=== PATIENT | male | born 1935 | race Caucasian/White ===

== ENCOUNTER 2021-08-15 08:20 | Day surgery (SDC) | payer OTHER ==
[2021-08-09 17:00] LABS: Potassium 3.9 mmol/L (3.5-5.1)
[2021-08-15] MEDS ORDERED: Ringers Lactate 1,000 ML IV ONE ×2 (08:40→13:11)
[2021-08-15] MEDS ORDERED: BUPIVACAINE 0.25% PF 30 ML VIAL ONE (09:33)
[2021-08-15] MEDS ORDERED: BUPIVACA 0.5%/EPI 0.0005%/PF 30 ML VIAL ONE (09:59)
[2021-08-15] MEDS ORDERED: LIDOCAINE 1% MPF 2 ML AMPULE ONE (10:10)
[2021-08-15] MEDS ORDERED: propofoL 200 MG/20 ML VIAL IV ONE (10:10)
[2021-08-15] MEDS ORDERED: FENTANYL CITR 100 MCG/2 ML ONE (10:10)
[2021-08-15] MEDS ORDERED: ROCURONIUM 50 MG/5 ML VIAL IV ONE (10:12)
[2021-08-15] MEDS: CEFAZOLIN/SWI 2gm 2 GM/20 ML SYR ONE ×2 (10:18→10:30)
[2021-08-15] MEDS ORDERED: dexAMETHasone 10 MG/ML VIAL ONE (10:35)
[2021-08-15] MEDS ORDERED: ONDANSETRON 4 MG/2 ML VIAL ONE (10:35)
[2021-08-15] MEDS ORDERED: NEOSTIGMINE 1 MG/ML -5 ML ONE (11:32)
[2021-08-15] MEDS ORDERED: GLYCOPYRROLATE 0.2 MG/ML SYR ONE (11:32)
--- NOTE | 2021-08-15 11:47 | P.OP ---
Preoperative diagnosis: RIGHT Inguinal Hernia - reducible Postoperative diagnosis: RIGHT Inguinal Hernia - reducible Primary procedure: Open RIGHT inguinal hernia repair with mesh Anesthesia: GETA + Local Estimated blood loss: <5cc Specimen: hernia contents Findings: large pantaloon indirect / direct inguinal hernia Complications: None Implants: Large Bard Perfix Plug and Patch Transferred to: Recovery Room Condition: Good
[2021-08-15] MEDS: FENTANYL CITR 100 MCG/2 ML ONE ×2 (12:06→12:20)
--- NOTE | 2021-08-15 12:11 | OP ---
Date of Procedure: 08/15/2021 Surgeon: Ben Og MD, Preoperative Diagnosis: Right inguinal hernia, reducible. Postoperative Diagnosis: Right inguinal hernia, reducible. Procedure Performed: Open right inguinal hernia repair with mesh. Anesthesia: General endotracheal plus local with 0.25% Marcaine. Estimated Blood Loss: Less than 5 cc. Specimens: Hernia contents. Findings: 1.Large pantaloon direct/indirect inguinal hernia on the right. 2.External oblique aponeurosis was quite thin and friable. Complications: None. Implants: A large Bard PerFix plug and patch hernia repair system. Disposition: The patient was transferred to the recovery room in good condition. Procedure In Detail: After informed consent was obtained, the patient was brought to the operating r oom, prepped and draped in the usual sterile fashion. After adequate anesthesia achieved, I made a l inear incision overlying the right inguinal region down to subcutaneous tissues. Electrocautery was used to dissect down through Camper fat and Elver fascia to expose the external oblique aponeurosis. This was opened sharply with a 15-blade. At this point, I then opened the external oblique aponeur osis, which was found to be quite thin and friable in its entirety protecting the ilioinguinal nerve. There were significant inflammatory changes down this area with significant compression from the in traabdominal contents coming through the hernia defect. At this point, after the external oblique ap oneurosis was opened in its entirety, I circumferentially dissected the spermatic cord structures hari y from the cord lipoma which was removed and sent off for pathologic examination. I then noted that the patient had a pantaloon type hernia. As such, I dissected circumferentially around to clear it f rom the spermatic cord structures protecting throughout the procedure. I then ligated some of the an terior hernia sac contents and imbricated the hernia sac internally through the deep ring. At this p oint, I sized a large Bard PerFix plug placed in the preperitoneal space circumferentially, flattened it out, and secured it circumferentially using the inner leaflets using a 2-0 PDS suture with good a pproximation of the tissues. I then brought the patch, sized appropriately, trimmed it, and secured to the pubic tubercle on medial aspect and then the internal oblique aponeurosis medially and lateral ly on the underside of the inguinal ligament down at this point deep tissues. I then reconstituted t he deep ring circumferentially around. The floors were found to be quite weak throughout the procedu re until the mesh was placed. At this point, good tension free repair was performed. At this point, I irrigated the area copiously, dried it and then closed the external oblique aponeurosis using a ru nning 3-0 Vicryl suture and deep dermal plane was closed using additional interrupted 3-0 Vicryl sutu res and skin was closed with 4-0 Monocryl in a running fashion. Dermabond placed over top. The garland ent tolerated the procedure well without evidence of complication and transferred to PACU in good con dition. All counts were correct at the end of the case. HERNAN/CARRIE Voice ID: [id number] Report ID: [id number]
[2021-08-15 12:43] VITALS: O2SAT 97
[2021-08-15 13:23] VITALS: BP 150/46; TEMP 97.9
[2021-08-15] MEDS ORDERED: HYDROCODONE/APAP 10/325 TAB ONE (13:41)
== END 2021-08-15 14:35 | disposition home or self-care (01) ==
LOC: OR 08:20
PROVIDERS: ATTEND Surgery
PROC: 0YU50JZ Supplement Right Inguinal Region with Synthetic Substitute, Open Approach (ICD-10-PCS; principal; 2021-08-15 10:15)
DX: K40.90 Unilateral inguinal hernia, without obstruction or gangrene, not specified as recurrent (principal); Z20.822 Contact with and (suspected) exposure to COVID-19
CPT/HCPCS: 80048; 36415; 88302; 49505; U0002; J2704; J3010 ×2; J1100; J2710; J0690; J7120 ×2; J2405

== ENCOUNTER 2022-06-16 09:46 | Inpatient (IN) | payer OTHER ==
--- OUTSIDE RECORDS SUMMARY | 2022-06-16 09:56 | XMS REPORT | Continuity of Care Document ---
:1935 Author Organization [facility] t Address [address] [place] [address] Dr. Patricia [address] [place] [address] Care Team Providers Name Role Phone TED AMIN Primary Care Physician Unavailable ERICKSON_R Attending Clinician Unavailable Ted Amin Attending Clinician [phone] RIVERA BUCKNER Attending Clinician Unavailable Nurse, [facility] Pob Immunization Attending Clinician Unavailable Rivera Buckner DO Attending Clinician Ben Og Attending Clinician [phone] Doctor Unassigned, [place] Attending Clinician Unavailable Merna Watkins RN Attending Clinician Mike Kruger S Attending Clinician Jesus Alberto Silverman MD Attending Clinician Devyn Chen CRNA Attending Clinician , [facility] Lab Attending Clinician Unavailable [facility], [facility] Heart Attending Clinician Unavailable Cheryl Dsouza RN Attending Clinician Unavailable Payton LOYD, Daniel Scruggs Attending Clinician Quinn Duggan MD Attending Clinician ERICKSON_R Admitting Clinician Unavailable Jesus Alberto Silverman MD Admitting Clinician Quinn Duggan MD Admitting Clinician Payers Payer Name Policy Type Policy Number Effective Date Expiration Date Amirah MADRIGAL (MEDICARE [id number] 2021 REPLACEMENT PPO) 00:00:00 [facility] [id number] Problems Condition Condition Condition Status Onset Resolution Last Treating Co mments Source Name Details Category Date Date Treatment Clinician Date Primary Primary Disease Active Overview: Univ ers osteoarthr osteoarthr 05-28 Formattin ity of itis of itis of 00:00: g of this [place] right knee right knee 00 note Me dical might be Branch different from the original. Added automatic ally from request for surgery [id number] Chest pain Chest pain Disease Active U nivers 8- ity of 00:00: [place] 00 Medical Branch Total knee Total knee Disease Active U nivers replacemen replacemen 10-23 it y of t status t status 00:00: [place] [facility] Left knee Left knee Disease Active 2015-09 Uni vers pain pain 10-19 ity of 00:00: [address] Allergies, Adverse Reactions, Alerts Allergy Allergy Status Severity Reaction(s) Onset Inactive Treating Comm ents Source Name Type Date Date Clinician NO KNOWN Drug Active Univers ALLERGIE Class ity of S [facility] Social History Social Habit Start Date Stop Date Quantity Comments Source Tobacco Comment Quit in 1984 [facility] Alcohol Comment Occasional Drinker U [facility] Alcohol intake 2019-06-17 2019-06-17 0 /d [facility] 00:00:00 00:00:[address] [facility] Sex Assigned At [birth year] Universit y of 00:00:00 00:00:[address] [facility] Smoking Status Start Date Stop Date Source Former smoker 2019-06-17 00:00:00 2019-06-17 00:00:00 [facility] Medications Ordered Filled Start Stop Current Ordering Indication Dosage Frequency Signature Comments Components Source Medication Medication Date Date Medication? Clinician (SIG) Name Name rOPINIRole Yes 1mg Take 1 mg Un guillermina (REQUIP) 1 9-18 by mouth ity o f mg tablet 16:52: at [place] 24 bedtime. Medical Branch sildenafil Yes 100mg Take 100 Un guillermina (VIAGRA) 9-18 mg by ity of 100 mg 16:52: mouth as [place] tablet 24 needed. Medical Branch atorvastati Yes 40mg Take 40 mg Univers n (LIPITOR) 9-18 by mouth ity of 80 mg 16:52: at [place] tablet 24 bedtime. Medical Branch CYCLOBENZAP 2019 Yes 10mg Take 10 mg Univers RINE HCL 9-18 by mouth ity of (CYCLOBENZA 16:52: at [place] ALFRED ORAL) 24 bedtime. [facility] Branch terazosin Yes 10mg Take 10 mg Un guillermina 10 mg 9-18 by mouth ity of capsule 16:52: at [place] 24 bedtime. Medical Branch methocarbam Yes 500mg Take 500 U nivers ol 500 mg 9-18 mg by ity of tablet 16:52: mouth as [place] 24 needed Medical (muscle Branch cramps). galantamine Yes 8mg Take 8 mg U nivers 8 mg tablet 9-18 by mouth ity of 16:52: daily. [place] [address] Medical Branch aspirin 325 Yes 325mg Take 325 U nivers mg tablet 9-18 mg by ity of 16:52: mouth [place] 24 daily. Medical Branch FINASTERIDE Yes 5mg Take 5 mg U nivers ORAL 9-18 by mouth ity of 16:52: daily. [place] [address] Medical Branch gabapentin Yes 200mg Take 200 Un guillermina 100 mg 9-18 mg by ity of capsule 16:52: mouth [place] 24 every Medical evening. Branch Indication s: Takes at 8:00pm CYANOCOBALA Yes 100ug Take 100 U nivers MIN, 9-18 mcg by ity of VITAMIN 16:52: mouth [place] B-12, ORAL 24 daily. Medical Branch biotin Yes 1{tbl} Take 1 Univers 5,000 mcg 9-18 tablet by ity o f TbDL 16:52: mouth [place] 24 daily. Medical Branch rOPINIRole Yes 1mg Take 1 mg Un guillermina (REQUIP) 1 9-18 by mouth ity o f mg tablet 16:52: at [place] 24 bedtime. Medical Branch sildenafil Yes 100mg Take 100 Un guillermina (VIAGRA) 9-18 mg by ity of 100 mg 16:52: mouth as [place] tablet 24 needed. Medical Branch atorvastati Yes 40mg Take 40 mg Univers n (LIPITOR) 9-18 by mouth ity of 80 mg 16:52: at [place] tablet 24 bedtime. Medical Branch CYCLOBENZAP Yes 10mg Take 10 mg Univers RINE HCL 9-18 by mouth ity of (CYCLOBENZA 16:52: at [place] ALFRED ORAL) 24 bedtime. [facility] Branch terazosin Yes 10mg Take 10 mg Un guillermina 10 mg 9-18 by mouth ity of capsule 16:52: at [place] 24 bedtime. Medical Branch methocarbam Yes 500mg Take 500 U nivers ol 500 mg 9-18 mg by ity of tablet 16:52: mouth as [place] 24 needed Medical (muscle Branch cramps). galantamine Yes 8mg Take 8 mg U nivers 8 mg tablet 9-18 by mouth ity of 16:52: daily. [place] [address] Medical Branch aspirin 325 Yes 325mg Take 325 U nivers mg tablet 9-18 mg by ity of 16:52: mouth [place] 24 daily. Medical Branch FINASTERIDE Yes 5mg Take 5 mg U nivers ORAL 9-18 by mouth ity of 16:52: daily. [place] [address] Medical Branch gabapentin Yes 200mg Take 200 Un guillermina 100 mg 9-18 mg by ity of capsule 16:52: mouth [place] 24 every Medical evening. Branch Indication s: Takes at 8:00pm CYANOCOBALA Yes 100ug Take 100 U nivers MIN, 9-18 mcg by ity of VITAMIN 16:52: mouth [place] B-12, ORAL 24 daily. Medical Branch biotin Yes 1{tbl} Take 1 Univers 5,000 mcg 9-18 tablet by ity o f TbDL 16:52: mouth [place] 24 daily. Medical Branch rOPINIRole Yes 1mg Take 1 mg Un guillermina (REQUIP) 1 9-18 by mouth ity o f mg tablet 16:52: at [place] 24 bedtime. Medical Branch sildenafil 2019 Yes 100mg Take 100 Un guillermina (VIAGRA) 9-18 mg by ity of 100 mg 16:52: mouth as [place] tablet 24 needed. Medical Branch atorvastati Yes 40mg Take 40 mg Univers n (LIPITOR) 9-18 by mouth ity of 80 mg 16:52: at [place] tablet 24 bedtime. Medical Branch CYCLOBENZAP Yes 10mg Take 10 mg Univers RINE HCL 9-18 by mouth ity of (CYCLOBENZA 16:52: at [place] ALFRED ORAL) 24 bedtime. [facility] Branch terazosin Yes 10mg Take 10 mg Un guillermina 10 mg 9-18 by mouth ity of capsule 16:52: at [place] 24 bedtime. Medical Branch methocarbam Yes 500mg Take 500 U nivers ol 500 mg 9-18 mg by ity of tablet 16:52: mouth as [place] 24 needed Medical (muscle Branch cramps). galantamine 2019 Yes 8mg Take 8 mg U nivers 8 mg tablet 9-18 by mouth ity of 16:52: daily. [place] [address] Medical Branch aspirin 325 20190 Yes 325mg Take 325 U nivers mg tablet 9-18 mg by ity of 16:52: mouth [place] 24 daily. Medical Branch FINASTERIDE Yes 5mg Take 5 mg U nivers ORAL 9-18 by mouth ity of 16:52: daily. [place] [address] Medical Branch gabapentin Yes 200mg Take 200 Un guillermina 100 mg 9-18 mg by ity of capsule 16:52: mouth [place] 24 every Medical evening. Branch Indication s: Takes at 8:00pm CYANOCOBALA Yes 100ug Take 100 U nivers MIN, 9-18 mcg by ity of VITAMIN 16:52: mouth [place] B-12, ORAL 24 daily. Medical Branch biotin 0 Yes 1{tbl} Take 1 Univers 5,000 mcg 9-18 tablet by ity o f TbDL 16:52: mouth [place] 24 daily. Medical Branch rOPINIRole Yes 1mg Take 1 mg Un guillermina (REQUIP) 1 9-18 by mouth ity o f mg tablet 16:52: at [place] 24 bedtime. Medical Branch sildenafil 2019 Yes 100mg Take 100 Un guillermina (VIAGRA) 9-18 mg by ity of 100 mg 16:52: mouth as [place] tablet 24 needed. Medical Branch atorvastati 0 Yes 40mg Take 40 mg Univers n (LIPITOR) 9-18 by mouth ity of 80 mg 16:52: at [place] tablet 24 bedtime. Medical Branch CYCLOBENZAP 2019 Yes 10mg Take 10 mg Univers RINE HCL 9-18 by mouth ity of (CYCLOBENZA 16:52: at [place] ALFRED ORAL) 24 bedtime. [facility] Branch terazosin Yes 10mg Take 10 mg Un guillermina 10 mg 9-18 by mouth ity of capsule 16:52: at [place] 24 bedtime. Medical Branch methocarbam Yes 500mg Take 500 U nivers ol 500 mg 9-18 mg by ity of tablet 16:52: mouth as [place] 24 needed Medical (muscle Branch cramps). galantamine 2019 Yes 8mg Take 8 mg U nivers 8 mg tablet 9-18 by mouth ity of 16:52: daily. [place] [address] Medical Branch aspirin 325 2019-0 Yes 325mg Take 325 U nivers mg tablet 9-18 mg by ity of 16:52: mouth [place] 24 daily. Medical Branch FINASTERIDE Yes 5mg Take 5 mg U nivers ORAL 9-18 by mouth ity of 16:52: daily. [place] [address] Medical Branch gabapentin Yes 200mg Take 200 Un guillermina 100 mg 9-18 mg by ity of capsule 16:52: mouth [place] 24 every Medical evening. Branch Indication s: Takes at 8:00pm CYANOCOBALA Yes 100ug Take 100 U nivers MIN, 9-18 mcg by ity of VITAMIN 16:52: mouth [place] B-12, ORAL 24 daily. Medical Branch biotin 0 Yes 1{tbl} Take 1 Univers 5,000 mcg 9-18 tablet by ity o f TbDL 16:52: mouth [place] 24 daily. Medical Branch rOPINIRole Yes 1mg Take 1 mg Un guillermina (REQUIP) 1 9-18 by mouth ity o f mg tablet 16:52: at [place] 24 bedtime. Medical Branch sildenafil 2019 Yes 100mg Take 100 Un guillermina (VIAGRA) 9-18 mg by ity of 100 mg 16:52: mouth as [place] tablet 24 needed. Medical Branch atorvastati Yes 40mg Take 40 mg Univers n (LIPITOR) 9-18 by mouth ity of 80 mg 16:52: at [place] tablet 24 bedtime. Medical Branch CYCLOBENZAP Yes 10mg Take 10 mg Univers RINE HCL 9-18 by mouth ity of (CYCLOBENZA 16:52: at [place] ALFRED ORAL) 24 bedtime. [facility] Branch terazosin Yes 10mg Take 10 mg Un guillermina 10 mg 9-18 by mouth ity of capsule 16:52: at [place] 24 bedtime. Medical Branch methocarbam Yes 500mg Take 500 U nivers ol 500 mg 9-18 mg by ity of tablet 16:52: mouth as [place] 24 needed Medical (muscle Branch cramps). galantamine 2019 Yes 8mg Take 8 mg U nivers 8 mg tablet 9-18 by mouth ity of 16:52: daily. [place] [address] Medical Branch aspirin 325 2019-0 Yes 325mg Take 325 U nivers mg tablet 9-18 mg by ity of 16:52: mouth [place] 24 daily. Medical Branch FINASTERIDE Yes 5mg Take 5 mg U nivers ORAL 9-18 by mouth ity of 16:52: daily. [place] [address] Medical Branch gabapentin Yes 200mg Take 200 Un guillermina 100 mg 9-18 mg by ity of capsule 16:52: mouth [place] 24 every Medical evening. Branch Indication s: Takes at 8:00pm CYANOCOBALA Yes 100ug Take 100 U nivers MIN, 9-18 mcg by ity of VITAMIN 16:52: mouth [place] B-12, ORAL 24 daily. Medical Branch biotin Yes 1{tbl} Take 1 Univers 5,000 mcg 9-18 tablet by ity o f TbDL 16:52: mouth [place] 24 daily. Medical Branch rOPINIRole Yes 1mg Take 1 mg Un guillermina (REQUIP) 1 9-18 by mouth ity o f mg tablet 16:52: at [place] 24 bedtime. Medical Branch sildenafil Yes 100mg Take 100 Un guillermina (VIAGRA) 9-18 mg by ity of 100 mg 16:52: mouth as [place] tablet 24 needed. Medical Branch atorvastati Yes 40mg Take 40 mg Univers n (LIPITOR) 9-18 by mouth ity of 80 mg 16:52: at [place] tablet 24 bedtime. Medical Branch CYCLOBENZAP 2019 Yes 10mg Take 10 mg Univers RINE HCL 9-18 by mouth ity of (CYCLOBENZA 16:52: at [place] ALFRED ORAL) 24 bedtime. [facility] Branch terazosin Yes 10mg Take 10 mg Un guillermina 10 mg 9-18 by mouth ity of capsule 16:52: at [place] 24 bedtime. Medical Branch methocarbam 2019 Yes 500mg Take 500 U nivers ol 500 mg 9-18 mg by ity of tablet 16:52: mouth as [place] 24 needed Medical (muscle Branch cramps). galantamine 2019 Yes 8mg Take 8 mg U nivers 8 mg tablet 9-18 by mouth ity of 16:52: daily. [place] [address] Medical Branch aspirin 325 2019 Yes 325mg Take 325 U nivers mg tablet 9-18 mg by ity of 16:52: mouth [place] 24 daily. Medical Branch FINASTERIDE 2019 Yes 5mg Take 5 mg U nivers ORAL 9-18 by mouth ity of 16:52: daily. [place] [address] Medical Branch gabapentin Yes 200mg Take 200 Un guillermina 100 mg 9-18 mg by ity of capsule 16:52: mouth [place] 24 every Medical evening. Branch Indication s: Takes at 8:00pm CYANOCOBALA Yes 100ug Take 100 U nivers MIN, 9-18 mcg by ity of VITAMIN 16:52: mouth [place] B-12, ORAL 24 daily. Medical Branch biotin Yes 1{tbl} Take 1 Univers 5,000 mcg 9-18 tablet by ity o f TbDL 16:52: mouth [place] 24 daily. Medical Branch rOPINIRole Yes 1mg Take 1 mg Un guillermina (REQUIP) 1 9-18 by mouth ity o f mg tablet 11:52: at [place] 24 bedtime. Medical Branch sildenafil Yes 100mg Take 100 Un guillermina (VIAGRA) 9-18 mg by ity of 100 mg 11:52: mouth as [place] tablet 24 needed. Medical Branch atorvastati Yes 40mg Take 40 mg Univers n (LIPITOR) 9-18 by mouth ity of 80 mg 11:52: at [place] tablet 24 bedtime. Medical Branch CYCLOBENZAP 2019 Yes 10mg Take 10 mg Univers RINE HCL 9-18 by mouth ity of (CYCLOBENZA 11:52: at [place] ALFRED ORAL) 24 bedtime. [facility] Branch terazosin Yes 10mg Take 10 mg Un guillermina 10 mg 9-18 by mouth ity of capsule 11:52: at [place] 24 bedtime. Medical Branch methocarbam 2019-0 Yes 500mg Take 500 U nivers ol 500 mg 9-18 mg by ity of tablet 11:52: mouth as [place] 24 needed Medical (muscle Branch cramps). galantamine 2019-0 Yes 8mg Take 8 mg U nivers 8 mg tablet 9-18 by mouth ity of 11:52: daily. [place] [address] Medical Branch aspirin 325 2019-0 Yes 325mg Take 325 U nivers mg tablet 9-18 mg by ity of 11:52: mouth [place] 24 daily. Medical Branch FINASTERIDE 2019-0 Yes 5mg Take 5 mg U nivers ORAL 9-18 by mouth ity of 11:52: daily. [place] [address] Medical Branch gabapentin 2019-0 Yes 200mg Take 200 Un guillermina 100 mg 9-18 mg by ity of capsule 11:52: mouth [place] 24 every Medical evening. Branch Indication s: Takes at 8:00pm CYANOCOBALA 2019-0 Yes 100ug Take 100 U nivers MIN, 9-18 mcg by ity of VITAMIN 11:52: mouth [place] B-12, ORAL 24 daily. Medical Branch biotin 2018-0 Yes 1{tbl} Take 1 Univers 5,000 mcg 9-18 tablet by ity o f TbDL 11:52: mouth [place] 24 daily. Medical Branch enoxaparin 2018-0 Yes 30mg 30 mg, Unive rs (LOVENOX) - Subcutaneo ity of injection 11:00: us, Q12H, [place] as 30 mg 00 First dose Medical on [facility] 06/03/19 at 0600, Until Discontinu ed, Routine terazosin 2018- Yes 10mg 10 mg, Univer s (HYTRIN) -17 Oral, QHS, ity o f capsule 10 02:00: First dose [place] mg 00 on Mon Medical 06/02/19 at Branch 2100, Until Discontinu ed, Routine cyclobenzap 2018-0 Yes 10mg 10 mg, Univ ers rine 9-17 Oral, QHS, ity of (FLEXERIL) 02:00: First dose [place] tablet 10 00 on Mon Medical mg 06/02/19 at Branch 2100, Until Discontinu ed atorvastati 2018-0 Yes 40mg 40 mg, Univ ers n (LIPITOR) 9-17 Oral, QHS, it y of tablet 40 02:00: First dose [place] mg 00 on Mon Medical 06/02/19 at Branch 2100, Until Discontinu ed, Routine acetaminoph Yes [id number] 1{tbl} Take 1 Univers en-codeine 9-17 05 tablet by ity of (TYLENOL-CO 00:00: mouth [place] DEINE #3) 00 every 4 Medical 300-30 mg (four) Branch tablet hours as needed for Pain (scale 4-6) or Pain (scale 7-10). acetaminoph Yes [id number] 1{tbl} Take 1 Univers en-codeine 9-17 05 tablet by ity of (TYLENOL-CO 00:00: mouth [place] DEINE #3) 00 every 4 Medical 300-30 mg (four) Branch tablet hours as needed for Pain (scale 4-6) or Pain (scale 7-10). acetaminoph Yes [id number] 1{tbl} Take 1 Univers en-codeine 9-17 05 tablet by ity of (TYLENOL-CO 00:00: mouth [place] DEINE #3) 00 every 4 Medical 300-30 mg (four) Branch tablet hours as needed for Pain (scale 4-6) or Pain (scale 7-10). acetaminoph Yes [id number] 1{tbl} Take 1 Univers en-codeine 9-17 05 tablet by ity of (TYLENOL-CO 00:00: mouth [place] DEINE #3) 00 every 4 Medical 300-30 mg (four) Branch tablet hours as needed for Pain (scale 4-6) or Pain (scale 7-10). acetaminoph Yes [id number] 1{tbl} Take 1 Univers en-codeine 9-17 05 tablet by ity of (TYLENOL-CO 00:00: mouth [place] DEINE #3) 00 every 4 Medical 300-30 mg (four) Branch tablet hours as needed for Pain (scale 4-6) or Pain (scale 7-10). acetaminoph Yes [id number] 1{tbl} Take 1 Univers en-codeine 9-17 05 tablet by ity of (TYLENOL-CO 00:00: mouth [place] DEINE #3) 00 every 4 Medical 300-30 mg (four) Branch tablet hours as needed for Pain (scale 4-6) or Pain (scale 7-10). rivaroxaban 2019- No [id number] 10mg Take 1 Univers (XARELTO) 06-03 05 tablet by ity of tablet 00:00: 04:59 mouth [place] 00 :00 daily for Medical 10 days. [place] rivaroxaban 2019- No [id number] 10mg Take 1 Univers (XARELTO) 06-03 05 tablet by ity of tablet 00:00: 04:59 mouth [place] 00 :00 daily for Medical 10 days. [place] rivaroxaban 2019- No [id number] 10mg Take 1 Univers (XARELTO) 06-03 05 tablet by ity of tablet 00:00: 04:59 mouth [place] 00 :00 daily for Medical 10 days. [place] rivaroxaban 2019- No [id number] 10mg Take 1 Univers (XARELTO) 06-03 05 tablet by ity of tablet 00:00: 04:59 mouth [place] 00 :00 daily for Medical 10 days. [place] gabapentin Yes 200mg 200 mg, Uni vers (NEURONTIN) 06-02 Oral, QPM, it y of capsule 200 22:00: First dose [place] mg 00 on Mon Medical 06/02/19 at [place] 1700, Until Discontinu ed, Routine tranexamic 2018- No 975mg 975 mg, IV Univers acid 06-02 Piggyback, ity of (CYKLOKAPRO 16:00: 13:09 ONCE, 1 [place] N) 975 mg 00 :00 dose, Mon Medic al in NaCl 06/02/19 at [place] 0.9% (NS) 1100, 250 250 mL mL, DSU piggyback Pre-op ceFAZolin 2019- No 2000mg 2 g (2,000 Univers in dextrose 06-02 mg), IV ity of (iso-os) 16:00: 12:39 [place]gyback, [place] (ANCEF) 2 00 :00 O.R. Medical gram/100 mL HOLDING Branc h Piggyback 2 ONCE, 1 g dose, Starting 06/02/19 at 1100, Until 06/02/19 at 0739, 100 mL, DSU Pre-op
Reason for Anti-Infec tive: Surgical Prophylaxi s
Surgi sydnee Prophylaxi s: Orthopaedi c
Durat ion of therapy: within 24 hours of surgery galantamine Yes 8mg 8 mg, Unive rs (REMINYL) 06-02 Oral, ity of tablet 8 mg 14:00: [place], [place] First [place] Medical on [facility] 06/02/19 at 0900, Until Discontinu ed, Routine finasteride Yes 5mg 5 mg, Unive rs (PROSCAR) 06-02 Oral, ity of tablet 5 mg 14:00: DAILY, [place] First dose Medical on [facility] 06/02/19 at 0900, Until Discontinu ed furosemide 2018- No 40mg 40 mg, Univ ers (LASIX) 06-02 Oral, Q ity of tablet 40 14:00: 23:57 DAY, [place] mg 00 :28 First dose Medical on [facility] 06/02/19 at 0900, Until Discontinu ed, Routine gabapentin 2018- No 300mg 300 mg, Un guillermina (NEURONTIN) 06-02 Oral, ity of capsule 300 14:00: 12:13 ONCE, 1 [place] mg 00 :00 dose, [facility] 06/02/19 at Branch 0900, Routine, DSU Pre-op oxyCODONE-a 2018- No 2{tbl} 2 tablet, [facility] cetaminophe 06-02 Oral, ity of n 14:00: 12:13 ONCE, 1 [place] (PERCOCET) 00 :00 dose, [facility] Medi sydnee 5-325 mg 06/02/19 at Branc h per tablet 0900, 2 tablet Routine, DSU Pre-op celecoxib 2019- No 400mg 400 mg, Uni vers (CELEBREX) 06-02 Oral, ity of capsule 400 14:00: 12:12 ONCE, 1 [place] mg 00 :00 dose, [facility] 06/02/19 at Branch 0900, Routine, DSU Pre-op
mathematics faculty member approving Non-formul aleja medication : JESUS ALBERTO SILVERMAN
Reaso n for Non-Formul aleja Use: SPECIFIC INDICATION FOR NONFORMULA RY PRODUCT morpHINE 30 2019-0 Yes Univer s mg/30 mL 06-02 ity of (fixed 13:50: [place] dose) DIE KEEPER 37 Medical injection [place] docusate 2018-0 Yes 100mg 100 mg, Unive rs (COLACE) 06-02 Oral, ity of capsule 100 13:00: Q12H, [place] mg 00 First dose Medical on [facility] 06/02/19 at 0800, Until Discontinu ed, Routine gabapentin 2018-0 Yes 100mg 100 mg, Uni vers (NEURONTIN) 06-02 Oral, TID, it y of capsule 100 13:00: First dose [place] mg 00 on [facility] Medical 06/02/19 at Branch 0800, Until Discontinu ed, Routine acetaminoph 2018-0 2019- No IV Unive rs en ADULT 06-02 Infusion, ity o f (OFIRMEV) 12:53: 14:39 Administer [place] injection 00 :19 over 15 Medical Minutes, [place] ONCE INTRA PROCEDURE, Starting [facility] 06/02/19 at 0753, Until [facility] 06/02/19 at 0939, Routine, Intra-op naloxone 2018-0 Yes .4mg 0.4 mg, Univer s (NARCAN) 06-02 Slow IV ity of injection 12:50: Push, [place] 0.4 mg 34 SEE-INSTRU Medical CTIONS, [place] Starting [facility] 06/02/19 at 0750, Until Discontinu ed, Routine HYDROcodone 2018-0 Yes 1{tbl} 1 tablet, Univers -acetaminop -16 Oral, ity of hen (NORCO) 12:50: Q4HPRN, [place] 10-325 mg 30 Starting Medica l tablet 1 [facility] tablet 06/02/19 at 0750, Until Discontinu ed, Routine, Pain (scale 7-10) HYDROcodone 2019-0 Yes 1{tbl} 1 tablet, Univers -acetaminop -16 Oral, ity of hen (NORCO 12:50: Q6HPRN, [place] 5) 5-325 mg 25 Starting Medi sydnee tablet 1 [facility] tablet 06/02/19 at 0750, Until Discontinu ed, Routine, Pain (scale 4-6) ondansetron 2019-0 Yes 4mg 4 mg, Slow Univers (ZOFRAN 06-02 IV Push, ity of (PF)) 12:50: Q6HPRN, [place] injection 4 16 Starting Medi sydnee mg Mon Branch 06/02/19 at 0750, Until Discontinu ed, Routine, Nausea and Vomiting (N/V) dexamethaso 2019- No Intravenou Univers ne 06-02 s, ONCE ity of (DECADRON 12:50: 14:39 INTRA [place] PHOSPHATE) 00 :19 PROCEDURE, Med ical injection Starting Branch [facility] 06/02/19 at 0750, Until 06/02/19 at 0939, Routine, Intra-op ondansetron 2018- No ONCE INTRA Univers (ZOFRAN 06-02 PROCEDURE, ity o f (PF)) 12:50: 14:39 Starting [place] injection 00 :19 [facility] Medical 06/02/19 at Branch 0750, Until 06/02/19 at 0939, Routine, Intra-op propofol 2018- No Intravenou Un guillermina injection 06-02 s, ONCE ity of 12:44: 14:39 INTRA [place] 00 :19 PROCEDURE, Medical Starting Branch [facility] 06/02/19 at 0744, Until 06/02/19 at 0939, Routine, Intra-op lidocaine 2018- No ONCE INTRA U nivers 1% 06-02 PROCEDURE, ity of (XYLOCAINE) 12:41: 14:39 Starting [place] 100 mg/10 00 :19 Mon Medical mL (1 %) 06/02/19 at Bran h injection 0741, Until 06/02/19 at 0939, Routine, Intra-op bupivacaine 2018- No ONCE INTRA Univers (preserv 06-02 PROCEDURE, ity of free) 0.5% 12:29: 14:39 Starting [place] (SENSORCAIN 00 :19 Mon Medical E MPF) 0.5 06/02/19 at Bra nch % (5 mg/mL) 0729, injection Until 06/02/19 at 0939, Routine, Intra-op bupivacaine 2019- No ONCE INTRA Univers (preserv 06-02 PROCEDURE, ity of free) 12:29: 14:39 Starting [place] (SENSORCAIN 00 :19 Mon Medical E MPF) 0.25 06/02/19 at Br anch % (2.5 0729, mg/mL) Until Mon injection 06/02/19 at 0939, Routine, Intra-op dexamethaso 2019- No ONCE INTRA Univers ne sod phos 06-02 PROCEDURE, i ty of PF 12:28: 14:39 Starting [place] injection 00 :19 Mon Medical 06/02/19 at Branch 0728, Until 06/02/19 at 0939, Routine, Intra-op FENTanyl PF 2019- No Intravenou Univers (SUBLIMAZE 06-02 s, ONCE ity o f (PF)) 12:18: 14:39 INTRA [place] injection 00 :19 PROCEDURE, Medi sydnee Starting Branch [facility] 06/02/19 at 0718, Until 06/02/19 at 0939, Routine, Intra-op lactated 2019- No 1000mL at 20 Unive rs ringers IV 06-02 mL/hr, ity of infusion 12:00: 12:12 1,000 mL, [place] 1,000 mL 00 :00 IV Medical Infusion, Branch ONCE, 1 dose, [facility] 06/02/19 at 0700, Routine, DSU Pre-op lactated 2019- No IV Univers ringers IV 06-02 Infusion, ity of infusion 11:51: 14:39 CONTINUOUS [place] 00 :19 PRN, Medical Starting Branch [facility] 06/02/19 at 0651, Until 06/02/19 at 0939, Routine, Intra-op ceFAZolin 2019- No [id number] 2g Univers in dextrose 06-02 9100 ity of (iso-os) 05:00: 16:59 [place] (ANCEF) 2 00 :00 Medical gram/100 mL Branch Piggyback 2 g celecoxib 2019- No [id number] 400mg Univers (CELEBREX) 06-02 9100 ity of capsule 400 05:00: 16:59 [place] mg 00 :00 Medical Branch gabapentin 2019- No [id number] 300mg Univers (NEURONTIN) 06-02 9100 ity of capsule 300 05:00: 16:59 [place] mg 00 :00 [facility] oxyCODONE-a 2019- No [id number] 2{tbl} [facility] cetaminophe 06-02 9100 ity of n 05:00: 16:59 [place] (PERCOCET) 00 :00 Medical 5-325 mg Branch per tablet 2 tablet tranexamic 2019- No [id number] 1000mg [facility] acid 06-02 9100 ity of (CYKLOKAPRO 05:00: 16:59 [place] N) 1,000 mg 00 :00 Medical in NaCl Branch 0.9% (NS) 250 mL piggyback ceFAZolin 2019- No [id number] 2g [facility] in dextrose 06-02 9100 ity of (iso-os) 05:00: 16:59 [place] (ANCEF) 2 00 :00 Medical gram/100 mL Branch Piggyback 2 g celecoxib 2019- No [id number] 400mg [facility] (CELEBREX) 06-02 9100 ity of capsule 400 05:00: 16:59 [place] mg 00 :00 Medical Branch gabapentin 2019- No [id number] 300mg [facility] (NEURONTIN) 06-02 9100 ity of capsule 300 05:00: 16:59 [place] mg 00 :00 Medical Branch oxyCODONE-a 2019- No [id number] 2{tbl} [facility] cetaminophe 06-02 9100 ity of n 05:00: 16:59 [place] (PERCOCET) 00 :00 Medical 5-325 mg Branch per tablet 2 tablet tranexamic 2019- No [id number] 1000mg [facility] acid 06-02 9100 ity of (CYKLOKAPRO 05:00: 16:59 [place] N) 1,000 mg 00 :00 Medical in NaCl Branch 0.9% (NS) 250 mL piggyback ceFAZolin 2019- No [id number] 2g [facility] in dextrose 06-02 9100 ity of (iso-os) 05:00: 16:59 [place] (ANCEF) 2 00 :00 Medical gram/100 mL Branch Piggyback 2 g celecoxib 2019- No [id number] 400mg [facility] (CELEBREX) 06-02 9100 ity of capsule 400 05:00: 16:59 [place] mg 00 :00 Medical Branch gabapentin 2019- No [id number] 300mg [facility] (NEURONTIN) 06-02 9100 ity of capsule 300 05:00: 16:59 [place] mg 00 :00 Medical Branch oxyCODONE-a 2019- No [id number] 2{tbl} [facility] cetaminophe 06-02 9100 ity of n 05:00: 16:59 [place] (PERCOCET) 00 :00 Medical 5-325 mg Branch per tablet 2 tablet tranexamic 2019- No [id number] 1000mg [facility] acid 06-02 9100 ity of (CYKLOKAPRO 05:00: 16:59 [place] N) 1,000 mg 00 :00 Medical in NaCl Branch 0.9% (NS) 250 mL piggyback ceFAZolin 2018- No [id number] 2g [facility] in dextrose 06-02 9100 ity of (iso-os) 05:00: 16:59 [place] (ANCEF) 2 00 :00 Medical gram/100 mL Branch Piggyback 2 g celecoxib 2019- No [id number] 400mg [facility] (CELEBREX) 06-02 9100 ity of capsule 400 05:00: 16:59 [place] mg 00 :00 Medical Branch gabapentin 2019- No [id number] 300mg [facility] (NEURONTIN) 06-02 9100 ity of capsule 300 05:00: 16:59 [place] mg 00 :00 Medical Branch oxyCODONE-a 2019- No [id number] 2{tbl} [facility] cetaminophe 06-02 9100 ity of n 05:00: 16:59 [place] (PERCOCET) 00 :00 Medical 5-325 mg Branch per tablet 2 tablet tranexamic 2019- No [id number] 1000mg [facility] acid 06-02 9100 ity of (CYKLOKAPRO 05:00: 16:59 [place] N) 1,000 mg 00 :00 Medical in NaCl Branch 0.9% (NS) 250 mL piggyback ceFAZolin 2019- No [id number] 2g [facility] in dextrose 06-02 9100 ity of (iso-os) 05:00: 16:59 [place] (ANCEF) 2 00 :00 Medical gram/100 mL Branch Piggyback 2 g celecoxib 2019- No [id number] 400mg [facility] (CELEBREX) 06-02 91 ity of capsule 400 05:00: 16:59 [place] mg 00 :00 Medical Branch gabapentin 2019- No [id number] 300mg [facility] (NEURONTIN) 06-02 91 ity of capsule 300 05:00: 16:59 [place] mg 00 :00 Medical Branch oxyCODONE-a 2019- No [id number] 2{tbl} [facility] cetaminophe 06-02 9100 ity of n 05:00: 16:59 [place] (PERCOCET) 00 :00 Medical 5-325 mg Branch per tablet 2 tablet tranexamic 2019- No [id number] 1000mg [facility] acid 06-02 9100 ity of (CYKLOKAPRO 05:00: 16:59 [place] N) 1,000 mg 00 :00 Medical in NaCl Branch 0.9% (NS) 250 mL piggyback rOPINIRole Yes 1mg Take 1 mg Un guillermina (REQUIP) 1 9-11 by mouth ity o f mg tablet 16:18: at [place] 35 bedtime. Medical Branch sildenafil Yes 100mg Take 100 Un guillermina (VIAGRA) 9-11 mg by ity of 100 mg 16:18: mouth as [place] tablet 35 needed. Medical Branch atorvastati Yes 40mg Take 40 mg Univers n (LIPITOR) 9-11 by mouth ity of 80 mg 16:18: at [place] tablet 35 bedtime. Medical Branch CYCLOBENZAP Yes 10mg Take 10 mg [facility] RINE HCL 9-11 by mouth ity of (CYCLOBENZA 16:18: at [place] ALFRED ORAL) 35 bedtime. [facility] Branch terazosin Yes 10mg Take 10 mg Un guillermina 10 mg 9-11 by mouth ity of capsule 16:18: at [place] 35 bedtime. Medical Branch methocarbam Yes 500mg Take 500 U nivers ol 500 mg 9-11 mg by ity of tablet 16:18: mouth as [place] 35 needed Medical (muscle Branch cramps). galantamine Yes 8mg Take 8 mg U nivers 8 mg tablet 9-11 by mouth ity of 16:18: daily. [place] [address] Medical Branch aspirin 325 Yes 325mg Take 325 U nivers mg tablet 9-11 mg by ity of 16:18: mouth [place] 35 daily. Medical Branch FINASTERIDE 2019 Yes 5mg Take 5 mg U nivers ORAL 9-11 by mouth ity of 16:18: daily. [place] [address] Medical Branch gabapentin Yes 200mg Take 200 Un guillermina 100 mg 9-11 mg by ity of capsule 16:18: mouth [place] 35 every Medical evening. Branch Indication s: Takes at 8:00pm CYANOCOBALA 2019 Yes 100ug Take 100 U nivers MIN, 9-11 mcg by ity of VITAMIN 16:18: mouth [place] B-12, ORAL 35 daily. Medical Branch biotin Yes 1{tbl} Take 1 Univers 5,000 mcg 9-11 tablet by ity o f TbDL 16:18: mouth [place] 35 daily. Medical Branch rOPINIRole Yes 1mg Take 1 mg Un guillermina (REQUIP) 1 9-11 by mouth ity o f mg tablet 16:18: at [place] 35 bedtime. Medical Branch sildenafil Yes 100mg Take 100 Un guillermina (VIAGRA) 9-11 mg by ity of 100 mg 16:18: mouth as [place] tablet 35 needed. Medical Branch atorvastati Yes 40mg Take 40 mg Univers n (LIPITOR) 9-11 by mouth ity of 80 mg 16:18: at [place] tablet 35 bedtime. Medical Branch CYCLOBENZAP Yes 10mg Take 10 mg Univers RINE HCL 9-11 by mouth ity of (CYCLOBENZA 16:18: at [place] ALFRED ORAL) 35 bedtime. [facility] Branch terazosin Yes 10mg Take 10 mg Un guillermina 10 mg 9-11 by mouth ity of capsule 16:18: at [place] 35 bedtime. Medical Branch methocarbam Yes 500mg Take 500 U nivers ol 500 mg 9-11 mg by ity of tablet 16:18: mouth as [place] 35 needed Medical (muscle Branch cramps). galantamine Yes 8mg Take 8 mg U nivers 8 mg tablet 9-11 by mouth ity of 16:18: daily. [place] 35 Medical Branch aspirin 325 Yes 325mg Take 325 U nivers mg tablet 9-11 mg by ity of 16:18: mouth [place] 35 daily. Medical Branch FINASTERIDE Yes 5mg Take 5 mg U nivers ORAL 9-11 by mouth ity of 16:18: daily. [place] [address] Medical Branch gabapentin Yes 200mg Take 200 Un guillermina 100 mg 9-11 mg by ity of capsule 16:18: mouth [place] 35 every Medical evening. Branch Indication s: Takes at 8:00pm CYANOCOBALA Yes 100ug Take 100 U nivers MIN, 9-11 mcg by ity of VITAMIN 16:18: mouth [place] B-12, ORAL 35 daily. Medical Branch biotin Yes 1{tbl} Take 1 Univers 5,000 mcg 9-11 tablet by ity o f TbDL 16:18: mouth [place] 35 daily. Medical Branch rOPINIRole Yes 1mg Take 1 mg Un guillermina (REQUIP) 1 9-11 by mouth ity o f mg tablet 16:18: at [place] 35 bedtime. Medical Branch sildenafil Yes 100mg Take 100 Un guillermina (VIAGRA) 9-11 mg by ity of 100 mg 16:18: mouth as [place] tablet 35 needed. Medical Branch atorvastati Yes 40mg Take 40 mg Univers n (LIPITOR) 9-11 by mouth ity of 80 mg 16:18: at [place] tablet 35 bedtime. Medical Branch CYCLOBENZAP Yes 10mg Take 10 mg Univers RINE HCL 9-11 by mouth ity of (CYCLOBENZA 16:18: at [place] ALFRED ORAL) 35 bedtime. [facility] Branch terazosin Yes 10mg Take 10 mg Un guillermina 10 mg 9-11 by mouth ity of capsule 16:18: at [place] 35 bedtime. Medical Branch methocarbam Yes 500mg Take 500 U nivers ol 500 mg 9-11 mg by ity of tablet 16:18: mouth as [place] 35 needed Medical (muscle Branch cramps). galantamine Yes 8mg Take 8 mg U nivers 8 mg tablet 9-11 by mouth ity of 16:18: daily. [address] Branch aspirin 325 Yes 325mg Take 325 U nivers mg tablet 9-11 mg by ity of 16:18: mouth [place] 35 daily. Medical Branch FINASTERIDE Yes 5mg Take 5 mg U nivers ORAL 9-11 by mouth ity of 16:18: daily. [place] 35 Medical Branch gabapentin Yes 200mg Take 200 Un guillermina 100 mg 9-11 mg by ity of capsule 16:18: mouth [place] 35 every Medical evening. Branch Indication s: Takes at 8:00pm CYANOCOBALA Yes 100ug Take 100 U nivers MIN, 9-11 mcg by ity of VITAMIN 16:18: mouth [place] B-12, ORAL 35 daily. Medical Branch biotin Yes 1{tbl} Take 1 Univers 5,000 mcg 9-11 tablet by ity o f TbDL 16:18: mouth [place] 35 daily. Medical Branch atorvastati Yes 40mg 40 mg, Univ ers n (LIPITOR) 8-10 Oral, QHS, it y of tablet 40 02:00: First dose [place] mg 00 on [facility] Medical 04/25/19 at Branch 2100, Until Discontinu ed, Routine
mathematics faculty member approving Restricted medication : QUINN DUGGAN rOPINIRole Yes 1mg Take 1 mg Un guillermina (REQUIP) 1 8-09 by mouth ity o f mg tablet 21:42: at [place] 11 bedtime. Medical Branch sildenafil Yes 100mg Take 100 Un guillermina (VIAGRA) 8-09 mg by ity of 100 mg 21:42: mouth as [place] tablet 11 needed. Medical Branch atorvastati Yes 40mg Take 40 mg Univers n (LIPITOR) 8-09 by mouth ity of 80 mg 21:42: at [place] tablet 11 bedtime. [facility] CYCLOBENZAP Yes 10mg Take 10 mg Univers RINE HCL 8-09 by mouth ity of (CYCLOBENZA 21:42: at [place] ALFRED ORAL) 11 bedtime. [facility] Branch terazosin Yes 10mg Take 10 mg Un guillermina 10 mg 8-09 by mouth ity of capsule 21:42: at [place] 11 bedtime. [facility] methocarbam Yes 500mg Take 500 U nivers ol 500 mg 8-09 mg by ity of tablet 21:42: mouth as [place] 11 needed Medical (muscle Branch cramps). galantamine Yes 8mg Take 8 mg U nivers 8 mg tablet 8-09 by mouth ity of 21:42: daily. [place] [address] Medical Branch aspirin 325 Yes 325mg Take 325 U nivers mg tablet 8-09 mg by ity of 21:42: mouth [place] 11 daily. Medical Branch FINASTERIDE Yes 5mg Take 5 mg U nivers ORAL 8-09 by mouth ity of 21:42: daily. [place] [address] Medical Branch gabapentin Yes 200mg Take 200 Un guillermina 100 mg 8-09 mg by ity of capsule 21:42: mouth [place] 11 every Medical evening. Branch Indication s: Takes at 8:00pm CYANOCOBALA Yes 100ug Take 100 U nivers MIN, 8-09 mcg by ity of VITAMIN 21:42: mouth [place] B-12, ORAL 11 daily. Medical Branch biotin Yes 1{tbl} Take 1 Univers 5,000 mcg 8-09 tablet by ity o f TbDL 21:42: mouth [place] 11 daily. Medical Branch rOPINIRole Yes 1mg Take 1 mg Un guillermina (REQUIP) 1 8-09 by mouth ity o f mg tablet 21:42: at [place] 11 bedtime. Medical Branch sildenafil Yes 100mg Take 100 Un guillermina (VIAGRA) 8-09 mg by ity of 100 mg 21:42: mouth as [place] tablet 11 needed. Medical Branch atorvastati Yes 40mg Take 40 mg Univers n (LIPITOR) 8-09 by mouth ity of 80 mg 21:42: at [place] tablet 11 bedtime. Medical Branch CYCLOBENZAP Yes 10mg Take 10 mg [facility] RINE HCL 8-09 by mouth ity of (CYCLOBENZA 21:42: at [place] ALFRED ORAL) 11 bedtime. [facility] Branch terazosin Yes 10mg Take 10 mg Un guillermina 10 mg 8-09 by mouth ity of capsule 21:42: at [place] 11 bedtime. Medical Branch methocarbam Yes 500mg Take 500 U nivers ol 500 mg 8-09 mg by ity of tablet 21:42: mouth as [place] 11 needed Medical (muscle Branch cramps). galantamine Yes 8mg Take 8 mg U nivers 8 mg tablet 8-09 by mouth ity of 21:42: daily. [place] [address] Medical Branch aspirin 325 Yes 325mg Take 325 U nivers mg tablet 8-09 mg by ity of 21:42: mouth [place] 11 daily. Medical Branch FINASTERIDE 2019 Yes 5mg Take 5 mg U nivers ORAL 8-09 by mouth ity of 21:42: daily. [place] [address] Medical Branch gabapentin Yes 200mg Take 200 Un guillermina 100 mg 8-09 mg by ity of capsule 21:42: mouth [place] 11 every Medical evening. Branch Indication s: Takes at 8:00pm CYANOCOBALA 2019 Yes 100ug Take 100 U nivers MIN, 8-09 mcg by ity of VITAMIN 21:42: mouth [place] B-12, ORAL 11 daily. Medical Branch biotin Yes 1{tbl} Take 1 Univers 5,000 mcg 8-09 tablet by ity o f TbDL 21:42: mouth [place] 11 daily. Medical Branch rOPINIRole Yes 1mg Take 1 mg Un guillermina (REQUIP) 1 8-09 by mouth ity o f mg tablet 21:42: at [place] 11 bedtime. Medical Branch sildenafil Yes 100mg Take 100 Un guillermina (VIAGRA) 8-09 mg by ity of 100 mg 21:42: mouth as [place] tablet 11 needed. Medical Branch atorvastati Yes 40mg Take 40 mg Univers n (LIPITOR) 8-09 by mouth ity of 80 mg 21:42: at [place] tablet 11 bedtime. Medical Branch CYCLOBENZAP Yes 10mg Take 10 mg [facility] RINE HCL 8-09 by mouth ity of (CYCLOBENZA 21:42: at [place] ALFRED ORAL) 11 bedtime. [facility] Branch terazosin Yes 10mg Take 10 mg Un guillermina 10 mg 8-09 by mouth ity of capsule 21:42: at [place] 11 bedtime. Medical Branch methocarbam Yes 500mg Take 500 U nivers ol 500 mg 8-09 mg by ity of tablet 21:42: mouth as [place] 11 needed Medical (muscle Branch cramps). galantamine Yes 8mg Take 8 mg U nivers 8 mg tablet 8-09 by mouth ity of 21:42: daily. [place] [address] Medical Branch aspirin 325 Yes 325mg Take 325 U nivers mg tablet 8-09 mg by ity of 21:42: mouth [place] 11 daily. Medical Branch FINASTERIDE Yes 5mg Take 5 mg U nivers ORAL 8-09 by mouth ity of 21:42: daily. [address] Branch gabapentin Yes 200mg Take 200 Un guillermina 100 mg 8-09 mg by ity of capsule 21:42: mouth [place] 11 every Medical evening. Branch Indication s: Takes at 8:00pm CYANOCOBALA Yes 100ug Take 100 U nivers MIN, 8-09 mcg by ity of VITAMIN 21:42: mouth [place] B-12, ORAL 11 daily. Medical Branch biotin Yes 1{tbl} Take 1 Univers 5,000 mcg 8-09 tablet by ity o f TbDL 21:42: mouth [place] 11 daily. Medical Branch rOPINIRole Yes 1mg Take 1 mg Un guillermina (REQUIP) 1 8-09 by mouth ity o f mg tablet 21:42: at [place] [address] bedtime. Medical Branch sildenafil Yes 100mg Take 100 Un guillermina (VIAGRA) 8-09 mg by ity of 100 mg 21:42: mouth as [place] tablet 11 needed. Medical Branch atorvastati Yes 40mg Take 40 mg Univers n (LIPITOR) 8-09 by mouth ity of 80 mg 21:42: at [place] tablet 11 bedtime. Medical Branch CYCLOBENZAP Yes 10mg Take 10 mg [facility] RINE HCL 8-09 by mouth ity of (CYCLOBENZA 21:42: at [place] ALFRED ORAL) 11 bedtime. [facility] Branch terazosin Yes 10mg Take 10 mg Un guillermina 10 mg 8-09 by mouth ity of capsule 21:42: at [place] 11 bedtime. Medical Branch methocarbam Yes 500mg Take 500 U nivers ol 500 mg 8-09 mg by ity of tablet 21:42: mouth as [place] 11 needed Medical (muscle Branch cramps). galantamine Yes 8mg Take 8 mg U nivers 8 mg tablet 8-09 by mouth ity of 21:42: daily. [address] Branch aspirin 325 Yes 325mg Take 325 U nivers mg tablet 8-09 mg by ity of 21:42: mouth [place] 11 daily. Medical Branch FINASTERIDE Yes 5mg Take 5 mg U nivers ORAL 8-09 by mouth ity of 21:42: daily. [place] [address] Medical Branch gabapentin Yes 200mg Take 200 Un guillermina 100 mg 8-09 mg by ity of capsule 21:42: mouth [place] 11 every Medical evening. Branch Indication s: Takes at 8:00pm CYANOCOBALA Yes 100ug Take 100 U nivers MIN, 8-09 mcg by ity of VITAMIN 21:42: mouth [place] B-12, ORAL 11 daily. Medical Branch biotin Yes 1{tbl} Take 1 Univers 5,000 mcg 8-09 tablet by ity o f TbDL 21:42: mouth [place] 11 daily. Medical Branch rOPINIRole Yes 1mg Take 1 mg Un guillermina (REQUIP) 1 8-09 by mouth ity o f mg tablet 21:42: at [place] [address] bedtime. Medical Branch sildenafil Yes 100mg Take 100 Un guillermina (VIAGRA) 8-09 mg by ity of 100 mg 21:42: mouth as [place] tablet 11 needed. Medical Branch atorvastati Yes 40mg Take 40 mg Univers n (LIPITOR) 8-09 by mouth ity of 80 mg 21:42: at [place] tablet 11 bedtime. Medical Branch CYCLOBENZAP Yes 10mg Take 10 mg [facility] RINE HCL 8-09 by mouth ity of (CYCLOBENZA 21:42: at [place] ALFRED ORAL) 11 bedtime. [facility] Branch terazosin Yes 10mg Take 10 mg Un guillermina 10 mg 8-09 by mouth ity of capsule 21:42: at [place] [address] bedtime. Medical Branch methocarbam Yes 500mg Take 500 U nivers ol 500 mg 8-09 mg by ity of tablet 21:42: mouth as [place] 11 needed Medical (muscle Branch cramps). galantamine 2019 Yes 8mg Take 8 mg U nivers 8 mg tablet 8-09 by mouth ity of 21:42: daily. [place] [address] Medical Branch aspirin 325 2019- Yes 325mg Take 325 U nivers mg tablet 8-09 mg by ity of 21:42: mouth [place] 11 daily. Medical Branch FINASTERIDE Yes 5mg Take 5 mg U nivers ORAL 8-09 by mouth ity of 21:42: daily. [place] [address] Medical Branch gabapentin Yes 200mg Take 200 Un guillermina 100 mg 8-09 mg by ity of capsule 21:42: mouth [place] 11 every Medical evening. Branch Indication s: Takes at 8:00pm CYANOCOBALA Yes 100ug Take 100 U nivers MIN, 8-09 mcg by ity of VITAMIN 21:42: mouth [place] B-12, ORAL 11 daily. Medical Branch biotin Yes 1{tbl} Take 1 Univers 5,000 mcg 8-09 tablet by ity o f TbDL 21:42: mouth [place] 11 daily. Medical Branch rOPINIRole Yes 1mg Take 1 mg Un guillermina (REQUIP) 1 8-09 by mouth ity o f mg tablet 21:42: at [place] 11 bedtime. Medical Branch sildenafil Yes 100mg Take 100 Un guillermina (VIAGRA) 8-09 mg by ity of 100 mg 21:42: mouth as [place] tablet 11 needed. Medical Branch atorvastati Yes 40mg Take 40 mg Univers n (LIPITOR) 8-09 by mouth ity of 80 mg 21:42: at [place] tablet 11 bedtime. Medical Branch CYCLOBENZAP Yes 10mg Take 10 mg [facility] RINE HCL 8-09 by mouth ity of (CYCLOBENZA 21:42: at [place] ALFRED ORAL) 11 bedtime. [facility] Branch terazosin Yes 10mg Take 10 mg Un guillermina 10 mg 8-09 by mouth ity of capsule 21:42: at [place] 11 bedtime. Medical Branch methocarbam Yes 500mg Take 500 U nivers ol 500 mg 8-09 mg by ity of tablet 21:42: mouth as [place] 11 needed Medical (muscle Branch cramps). galantamine Yes 8mg Take 8 mg U nivers 8 mg tablet 8-09 by mouth ity of 21:42: daily. [place] [address] Medical Branch aspirin 325 Yes 325mg Take 325 U nivers mg tablet 8-09 mg by ity of 21:42: mouth [place] 11 daily. Medical Branch FINASTERIDE Yes 5mg Take 5 mg U nivers ORAL 8-09 by mouth ity of 21:42: daily. [place] [address] Medical Branch gabapentin Yes 200mg Take 200 Un guillermina 100 mg 8-09 mg by ity of capsule 21:42: mouth [place] 11 every Medical evening. Branch Indication s: Takes at 8:00pm CYANOCOBALA 2019 Yes 100ug Take 100 U nivers MIN, 8-09 mcg by ity of VITAMIN 21:42: mouth [place] B-12, ORAL 11 daily. Medical Branch biotin 2019- Yes 1{tbl} Take 1 Univers 5,000 mcg 8-09 tablet by ity o f TbDL 21:42: mouth [place] 11 daily. Medical Branch rOPINIRole Yes 1mg Take 1 mg Un guillermina (REQUIP) 1 8-09 by mouth ity o f mg tablet 21:42: at [place] 11 bedtime. Medical Branch sildenafil Yes 100mg Take 100 Un guillermina (VIAGRA) 8-09 mg by ity of 100 mg 21:42: mouth as [place] tablet 11 needed. Medical Branch atorvastati Yes 40mg Take 40 mg Univers n (LIPITOR) 8-09 by mouth ity of 80 mg 21:42: at [place] tablet 11 bedtime. Medical Branch CYCLOBENZAP Yes 10mg Take 10 mg Univers RINE HCL 8-09 by mouth ity of (CYCLOBENZA 21:42: at [place] ALFRED ORAL) 11 bedtime. [facility] Branch terazosin Yes 10mg Take 10 mg Un guillermina 10 mg 8-09 by mouth ity of capsule 21:42: at [place] 11 bedtime. Medical Branch methocarbam Yes 500mg Take 500 U nivers ol 500 mg 8-09 mg by ity of tablet 21:42: mouth as [place] 11 needed Medical (muscle Branch cramps). galantamine Yes 8mg Take 8 mg U nivers 8 mg tablet 8-09 by mouth ity of 21:42: daily. [place] [address] Medical Branch aspirin 325 Yes 325mg Take 325 U nivers mg tablet 8-09 mg by ity of 21:42: mouth [place] 11 daily. Medical Branch FINASTERIDE Yes 5mg Take 5 mg U nivers ORAL 8-09 by mouth ity of 21:42: daily. [place] [address] Medical Branch gabapentin 2019-0 Yes 200mg Take 200 Un guillermina 100 mg 8-09 mg by ity of capsule 21:42: mouth [place] 11 every Medical evening. Branch Indication s: Takes at 8:00pm CYANOCOBALA Yes 100ug Take 100 U nivers MIN, 8-09 mcg by ity of VITAMIN 21:42: mouth [place] B-12, ORAL 11 daily. Medical Branch biotin 2019- Yes 1{tbl} Take 1 Univers 5,000 mcg 8-09 tablet by ity o f TbDL 21:42: mouth [place] 11 daily. Medical Branch rOPINIRole Yes 1mg Take 1 mg Un guillermina (REQUIP) 1 8-09 by mouth ity o f mg tablet 21:42: at [place] [address] bedtime. Medical Branch sildenafil Yes 100mg Take 100 Un guillermina (VIAGRA) 8-09 mg by ity of 100 mg 21:42: mouth as [place] tablet 11 needed. Medical Branch atorvastati Yes 40mg Take 40 mg Univers n (LIPITOR) 8-09 by mouth ity of 80 mg 21:42: at [place] tablet 11 bedtime. Medical Branch CYCLOBENZAP Yes 10mg Take 10 mg Univers RINE HCL 8-09 by mouth ity of (CYCLOBENZA 21:42: at [place] ALFRED ORAL) 11 bedtime. [facility] Branch terazosin Yes 10mg Take 10 mg Un guillermina 10 mg 8-09 by mouth ity of capsule 21:42: at [place] [address] bedtime. Medical Branch methocarbam Yes 500mg Take 500 U nivers ol 500 mg 8-09 mg by ity of tablet 21:42: mouth as [place] needed Medical (muscle Branch cramps). galantamine Yes 8mg Take 8 mg U nivers 8 mg tablet 8-09 by mouth ity of 21:42: daily. [place] [address] Medical Branch aspirin 325 2018- Yes 325mg Take 325 U nivers mg tablet 8-09 mg by ity of 21:42: mouth [place] 11 daily. Medical Branch FINASTERIDE Yes 5mg Take 5 mg U nivers ORAL 8-09 by mouth ity of 21:42: daily. [place] [address] Medical Branch gabapentin Yes 200mg Take 200 Un guillermina 100 mg 8-09 mg by ity of capsule 21:42: mouth [place] 11 every Medical evening. Branch Indication s: Takes at 8:00pm CYANOCOBALA Yes 100ug Take 100 U nivers MIN, 8-09 mcg by ity of VITAMIN 21:42: mouth [place] B-12, ORAL 11 daily. Medical Branch biotin 2019 Yes 1{tbl} Take 1 Univers 5,000 mcg 8-09 tablet by ity o f TbDL 21:42: mouth [place] 11 daily. Medical Branch rOPINIRole Yes 1mg Take 1 mg Un guillermina (REQUIP) 1 8-09 by mouth ity o f mg tablet 21:42: at [place] [address] bedtime. Medical Branch sildenafil Yes 100mg Take 100 Un guillermina (VIAGRA) 8-09 mg by ity of 100 mg 21:42: mouth as [place] tablet 11 needed. Medical Branch atorvastati Yes 40mg Take 40 mg Univers n (LIPITOR) 8-09 by mouth ity of 80 mg 21:42: at [place] tablet 11 bedtime. Medical Branch CYCLOBENZAP Yes 10mg Take 10 mg Univers RINE HCL 8-09 by mouth ity of (CYCLOBENZA 21:42: at [place] ALFRED ORAL) 11 bedtime. [facility] Branch terazosin Yes 10mg Take 10 mg Un guillermina 10 mg 8-09 by mouth ity of capsule 21:42: at [place] [address] bedtime. Medical Branch methocarbam Yes 500mg Take 500 U nivers ol 500 mg 8-09 mg by ity of tablet 21:42: mouth as [place] 11 needed Medical (muscle Branch cramps). galantamine Yes 8mg Take 8 mg U nivers 8 mg tablet 8-09 by mouth ity of 21:42: daily. [place] [address] Medical Branch aspirin 325 2019 Yes 325mg Take 325 U nivers mg tablet 8-09 mg by ity of 21:42: mouth [place] 11 daily. Medical Branch FINASTERIDE Yes 5mg Take 5 mg U nivers ORAL 8-09 by mouth ity of 21:42: daily. [place] [address] Medical Branch gabapentin 2019 Yes 200mg Take 200 Un guillermina 100 mg 8-09 mg by ity of capsule 21:42: mouth [place] 11 every Medical evening. Branch Indication s: Takes at 8:00pm CYANOCOBALA Yes 100ug Take 100 U nivers MIN, 8-09 mcg by ity of VITAMIN 21:42: mouth [place] B-12, ORAL 11 daily. Medical Branch biotin Yes 1{tbl} Take 1 Univers 5,000 mcg 8-09 tablet by ity o f TbDL 21:42: mouth [place] 11 daily. Medical Branch rOPINIRole Yes 1mg Take 1 mg Un guillermina (REQUIP) 1 8-09 by mouth ity o f mg tablet 21:42: at [place] 11 bedtime. Medical Branch sildenafil Yes 100mg Take 100 Un guillermina (VIAGRA) 8-09 mg by ity of 100 mg 21:42: mouth as [place] tablet 11 needed. Medical Branch atorvastati Yes 40mg Take 40 mg Univers n (LIPITOR) 8-09 by mouth ity of 80 mg 21:42: at [place] tablet 11 bedtime. Medical Branch CYCLOBENZAP Yes 10mg Take 10 mg [facility] RINE HCL 8-09 by mouth ity of (CYCLOBENZA 21:42: at [place] ALFRED ORAL) 11 bedtime. [facility] Branch terazosin Yes 10mg Take 10 mg Un guillermina 10 mg 8-09 by mouth ity of capsule 21:42: at [place] 11 bedtime. Medical Branch methocarbam Yes 500mg Take 500 U nivers ol 500 mg 8-09 mg by ity of tablet 21:42: mouth as [place] 11 needed Medical (muscle Branch cramps). galantamine Yes 8mg Take 8 mg U nivers 8 mg tablet 8-09 by mouth ity of 21:42: daily. [place] [address] Medical Branch aspirin 325 2019 Yes 325mg Take 325 U nivers mg tablet 8-09 mg by ity of 21:42: mouth [place] 11 daily. Medical Branch FINASTERIDE 20190 Yes 5mg Take 5 mg U nivers ORAL 8-09 by mouth ity of 21:42: daily. [address] Branch gabapentin [address] Yes 200mg Take 200 Un guillermina 100 mg 8-09 mg by ity of capsule 21:42: mouth [place] 11 every Medical evening. Branch Indication s: Takes at 8:00pm CYANOCOBALA Yes 100ug Take 100 U nivers MIN, 8-09 mcg by ity of VITAMIN 21:42: mouth [place] B-12, ORAL 11 daily. Medical Branch biotin 2019-0 Yes 1{tbl} Take 1 [facility] 5,000 mcg 04-25 tablet by ity o f TbDL 21:42: mouth [place] 11 daily. Medical Branch omeprazole Yes 20mg 20 mg, [facility] (PRILOSEC) 04-25 Oral, ity of capsule 20 14:00: DAILY, [place] mg 00 First dose Medical [facility] 04/25/19 at 0900, Until Discontinu ed, Routine galantamine 2018- Yes 8mg 8 mg, [facility] (REMINYL) 04-25 Oral, it[facility] tablet 8 mg 14:00: [place] 00 First [place] [facility] 04/25/19 at 0900, Until Discontinu ed, Routine aspirin 2018- Yes 325mg 325 mg, Univer s tablet 325 04-25 Oral, ity of mg 14:00: DAILY, [place] 00 First dose Medical on [facility] 04/25/19 at 0900, Until Discontinu ed, Routine gabapentin 2018- Yes 100mg 100 mg, Uni vers (NEURONTIN) 04-25 Oral, TID, it y of capsule 100 13:00: First dose [place] mg 00 on [facility] 04/25/19 at Branch 0800, Until Discontinu ed, Routine KCL 2019- No 40meq 40 mEq, [facility] (KLOR-CON 04-25 Oral, ity of M20) tablet 08:30: 07:49 ONCE, 1 [place] 40 mEq 00 :00 dose, [facility] 04/25/19 at Branch 0330, Routine methocarbam 2018-0 Yes 750mg 750 mg, Un guillermina ol 04-25 Oral, TID, ity of (ROBAXIN) 07:30: First [place] tablet 750 00 on [facility] mg 04/25/19 at Branch 0230, Until Discontinu ed, Routine traMADol 0 2019- No 50mg 50 mg, Univer s (ULTRAM) 04-25 Oral, ity of tablet 50 07:19: 07:18 Q8HPRN, [place] mg 04 :04 Starting Medical 04/25/19 Branch at 0219, Until 8/11/19 at 0218, Routine, Pain (scale 4-6) acetaminoph 2018- Yes 650mg 650 mg, Un guillermina en 04-25 Oral, ity of (TYLENOL) 07:19: Q6HPRN, [place] tablet 650 01 Starting Medic al mg 04/25/19 Branch at 0219, Until Discontinu ed, Routine, Pain (scale 1-3) OMEPRAZOLE 2019- No Take by Uni vers (PRILOSEC 04-25 mouth. ity of ORAL) 07:17: 00:00 [place] 27 :00 Medical Branch L.ACID/L.CA 2019- No 1{tbl} Take 1 [facility] nivers SEI/B.BIF/B 04-25 tablet by it y of .ASIF/FOS 07:17: 00:00 mouth [place] (PROBIOTIC 27 :00 daily. Medical BLEND ORAL) Branch hydrochloro 2019- No 25mg Take 25 mg [facility] thiazide 04-25 by mouth ity of (ESIDRIX) 07:17: 00:00 daily. [place] 25 mg 27 :00 Medical tablet Branch HYDROcodone 2019- No 1{tbl} Take 1 U nivers -acetaminop 04-25 tablet by it y of hen 5-325 07:17: 00:00 mouth [place] mg tablet 27 :00 every 6 Medical (six) Branch hours as needed. FENTanyl PF 2019- No 25ug 25 mcg, [facility] guillermina (SUBLIMAZE 04-25 Slow IV ity o f (PF)) 06:30: 05:53 Push, [place] injection 00 :00 ONCE, 1 Medical 25 mcg dose, Fri Branch 04/25/19 at 0130, STAT ondansetron 2019- No 4mg 4 mg, Slow [facility] (ZOFRAN 04-25 IV Push, ity of (PF)) 05:00: 04:40 ONCE, 1 [place] injection 4 00 :00 dose, Fri Med ical mg 04/25/19 at Branch 0000, DAVID FENTanyl PF 2019- No 25ug 25 mcg, Un guillermina (SUBLIMAZE 04-25 Slow IV ity o f (PF)) 05:00: 04:39 Push, [place] injection 00 :00 ONCE, 1 Medical 25 mcg dose, Fri Branch 04/25/19 at 0000, STAT acetaminoph 2018- Yes [id number] 1{tbl} Take 1 [facility] en-codeine 8-09 tablet by ity of (TYLENOL-CO 00:00: mouth [place] DEINE #4) 00 every 4 Medical 300-60 mg (four) Branch tablet hours as needed for Pain. methocarbam Yes [id number] 750mg Take 1 [facility] ol 750 mg 8-09 tablet by ity o f tablet 00:00: mouth 3 [place] 00 (three) Medical times Branch daily. acetaminoph Yes [id number] 1{tbl} Take 1 [facility] en-codeine 8-09 tablet by ity of (TYLENOL-CO 00:00: mouth [place] DEINE #4) 00 every 4 Medical 300-60 mg (four) Branch tablet hours as needed for Pain. methocarbam Yes [id number] 750mg Take 1 [facility] ol 750 mg 8-09 tablet by ity o f tablet 00:00: mouth 3 00 (three) Medical times Branch daily. acetaminoph Yes [id number] 1{tbl} Take 1 [facility] en-codeine 8-09 tablet by ity of (TYLENOL-CO 00:00: mouth [place] DEINE #4) 00 every 4 Medical 300-60 mg (four) Branch tablet hours as needed for Pain. methocarbam Yes [id number] 750mg Take 1 [facility] ol 750 mg 8-09 tablet by ity o f tablet 00:00: mouth 3 [place] 00 (three) Medical times Branch daily. acetaminoph Yes [id number] 1{tbl} Take 1 [facility] en-codeine 8-09 tablet by ity of (TYLENOL-CO 00:00: mouth [place] DEINE #4) 00 every 4 Medical 300-60 mg (four) Branch tablet hours as needed for Pain. methocarbam 0 Yes [id number] 750mg Take 1 [facility] ol 750 mg 8-09 tablet by ity o f tablet 00:00: mouth 3 [place] 00 (three) Medical times Branch daily. acetaminoph Yes [id number] 1{tbl} Take 1 [facility] en-codeine 8-09 tablet by ity of (TYLENOL-CO 00:00: mouth [place] DEINE #4) 00 every 4 Medical 300-60 mg (four) Branch tablet hours as needed for Pain. methocarbam 0 Yes [id number] 750mg Take 1 [facility] ol 750 mg 8-09 tablet by ity o f tablet 00:00: mouth 3 [place] 00 (three) Medical times Branch daily. acetaminoph 0 Yes [id number] 1{tbl} Take 1 [facility] en-codeine 8-09 tablet by ity of (TYLENOL-CO 00:00: mouth [place] DEINE #4) 00 every 4 Medical 300-60 mg (four) Branch tablet hours as needed for Pain. methocarbam Yes [id number] 750mg Take 1 [facility] ol 750 mg 8-09 tablet by ity o f tablet 00:00: mouth 3 [place] 00 (three) Medical times Branch daily. acetaminoph 0 Yes [id number] 1{tbl} Take 1 [facility] en-codeine 8-09 tablet by ity of (TYLENOL-CO 00:00: mouth [place] DEINE #4) 00 every 4 Medical 300-60 mg (four) Branch tablet hours as needed for Pain. methocarbam Yes [id number] 750mg Take 1 [facility] ol 750 mg 8-09 tablet by ity o f tablet 00:00: mouth 3 [place] 00 (three) Medical times Branch daily. acetaminoph Yes [id number] 1{tbl} Take 1 [facility] en-codeine 8-09 tablet by ity of (TYLENOL-CO 00:00: mouth [place] DEINE #4) 00 every 4 Medical 300-60 mg (four) Branch tablet hours as needed for Pain. methocarbam 0 Yes [id number] 750mg Take 1 [facility] ol 750 mg 8-09 tablet by ity o f tablet 00:00: mouth 3 [place] 00 (three) Medical times Branch daily. acetaminoph Yes [id number] 1{tbl} Take 1 [facility] en-codeine 8-09 tablet by ity of (TYLENOL-CO 00:00: mouth [place] DEINE #4) 00 every 4 Medical 300-60 mg (four) Branch tablet hours as needed for Pain. methocarbam 0 Yes [id number] 750mg Take 1 [facility] ol 750 mg 8-09 tablet by ity o f tablet 00:00: mouth 3 [place] 00 (three) Medical times Branch daily. acetaminoph 0 Yes [id number] 1{tbl} Take 1 [facility] en-codeine 8-09 tablet by ity of (TYLENOL-CO 00:00: mouth [place] DEINE #4) 00 every 4 Medical 300-60 mg (four) Branch tablet hours as needed for Pain. methocarbam 0 Yes [id number] 750mg Take 1 [facility] ol 750 mg 8-09 tablet by ity o f tablet 00:00: mouth 3 [place] 00 (three) Medical times Branch daily. acetaminoph Yes [id number] 1{tbl} Take 1 [facility] en-codeine 8-09 tablet by ity of (TYLENOL-CO 00:00: mouth [place] DEINE #4) 00 every 4 Medical 300-60 mg (four) Branch tablet hours as needed for Pain. methocarbam Yes [id number] 750mg Take 1 [facility] ol 750 mg 8-09 tablet by ity o f tablet 00:00: mouth 3 [place] 00 (three) Medical times Branch daily. acetaminoph Yes [id number] 1{tbl} Take 1 [facility] en-codeine 8-09 tablet by ity of (TYLENOL-CO 00:00: mouth [place] DEINE #4) 00 every 4 Medical 300-60 mg (four) Branch tablet hours as needed for Pain. methocarbam Yes [id number] 750mg Take 1 [facility] ol 750 mg 8-09 tablet by ity o f tablet 00:00: mouth 3 [place] 00 (three) Medical times Branch daily. acetaminoph Yes [id number] 1{tbl} Take 1 [facility] en-codeine 8-09 tablet by ity of (TYLENOL-CO 00:00: mouth [place] DEINE #4) 00 every 4 Medical 300-60 mg (four) Branch tablet hours as needed for Pain. methocarbam Yes [id number] 750mg Take 1 [facility] ol 750 mg 8-09 tablet by ity o f tablet 00:00: mouth 3 [place] 00 (three) Medical times Branch daily. acetaminoph 0 Yes [id number] 1{tbl} Take 1 [facility] en-codeine 8-09 tablet by ity of (TYLENOL-CO 00:00: mouth [place] DEINE #4) 00 every 4 Medical 300-60 mg (four) Branch tablet hours as needed for Pain. methocarbam 2019-0 Yes [id number] 750mg Take 1 [facility] ol 750 mg 8-09 tablet by ity o f tablet 00:00: mouth 3 [place] 00 (three) Medical times Branch daily. acetaminoph 0 Yes [id number] 1{tbl} Take 1 [facility] en-codeine 8-09 tablet by ity of (TYLENOL-CO 00:00: mouth [place] DEINE #4) 00 every 4 Medical 300-60 mg (four) Branch tablet hours as needed for Pain. methocarbam Yes [id number] 750mg Take 1 [facility] ol 750 mg 8-09 tablet by ity o f tablet 00:00: mouth 3 [place] 00 (three) Medical times Branch daily. acetaminoph Yes [id number] 1{tbl} Take 1 [facility] en-codeine 8-09 tablet by ity of (TYLENOL-CO 00:00: mouth [place] DEINE #4) 00 every 4 Medical 300-60 mg (four) Branch tablet hours as needed for Pain. methocarbam Yes [id number] 750mg Take 1 [facility] ol 750 mg 8-09 tablet by ity o f tablet 00:00: mouth 3 [place] 00 (three) Medical times Branch daily. acetaminoph Yes [id number] 1{tbl} Take 1 [facility] en-codeine 8-09 tablet by ity of (TYLENOL-CO 00:00: mouth [place] DEINE #4) 00 every 4 Medical 300-60 mg (four) Branch tablet hours as needed for Pain. methocarbam Yes [id number] 750mg Take 1 [facility] ol 750 mg 8-09 tablet by ity o f tablet 00:00: mouth 3 [place] 00 (three) Medical times Branch daily. acetaminoph Yes [id number] 1{tbl} Take 1 [facility] en-codeine 8-09 tablet by ity of (TYLENOL-CO 00:00: mouth [place] DEINE #4) 00 every 4 Medical 300-60 mg (four) Branch tablet hours as needed for Pain. methocarbam 0 Yes [id number] 750mg Take 1 [facility] ol 750 mg 8-09 tablet by ity o f tablet 00:00: mouth 3 [place] 00 (three) Medical times Branch daily. acetaminoph Yes [id number] 1{tbl} Take 1 [facility] en-codeine 8-09 tablet by ity of (TYLENOL-CO 00:00: mouth [place] DEINE #4) 00 every 4 Medical 300-60 mg (four) Branch tablet hours as needed for Pain. methocarbam 2018-0 Yes [id number] 750mg Take 1 [facility] ol 750 mg 8-09 tablet by ity o f tablet 00:00: mouth 3 [place] 00 (three) Medical times Branch daily. acetaminoph 2019- Yes [id number] 1{tbl} Take 1 [facility] en-codeine 8-09 tablet by ity of (TYLENOL-CO 00:00: mouth [place] DEINE #4) 00 every 4 Medical 300-60 mg (four) Branch tablet hours as needed for Pain. methocarbam 2018- Yes [id number] 750mg Take 1 [facility] ol 750 mg 8-09 tablet by ity o f tablet 00:00: mouth 3 [place] 00 (three) Medical times Branch daily. diclofenac 2018-0 Yes 75mg Take 1 Unive rs 75 mg EC 8-07 tablet by ity of tablet 00:00: mouth 2 [place] 00 (two) Medical times Branch daily with meals. diclofenac 2019- No 75mg Take 1 [facility] ers 75 mg EC 8-07 08-09 tablet by ity o f tablet 00:00: 00:00 mouth 2 [place] 00 :00 (two) Medical times Branch daily with meals. traMADol 50 2018-0 Yes [id number] 50mg Take 1 [facility] mg tablet 8-05 tablet by ity o f 00:00: mouth [place] 00 every 4 Medical (four) Branch hours as needed for Pain (scale 7-10). traMADol 50 2018-0 Yes [id number] 50mg Take 1 [facility] mg tablet 8-05 tablet by ity o f 00:00: mouth [place] 00 every 4 Medical (four) Branch hours as needed for Pain (scale 7-10). traMADol 50 2018-0 Yes [id number] 50mg Take 1 [facility] mg tablet 8-05 tablet by ity o f 00:00: mouth [place] 00 every 4 Medical (four) Branch hours as needed for Pain (scale 7-10). traMADol 50 2018-0 Yes [id number] 50mg Take 1 [facility] mg tablet 8-05 tablet by ity o f 00:00: mouth [place] 00 every 4 Medical (four) Branch hours as needed for Pain (scale 7-10). traMADol 50 2018-0 Yes [id number] 50mg Take 1 [facility] mg tablet 8-05 tablet by ity o f 00:00: mouth [place] 00 every 4 Medical (four) Branch hours as needed for Pain (scale 7-10). traMADol 50 2019-0 Yes [id number] 50mg Take 1 [facility] mg tablet 8-05 tablet by ity o f 00:00: mouth [place] 00 every 4 Medical (four) Branch hours as needed for Pain (scale 7-10). traMADol 50 2019-0 Yes [id number] 50mg Take 1 [facility] mg tablet 8-05 tablet by ity o f 00:00: mouth [place] 00 every 4 Medical (four) Branch hours as needed for Pain (scale 7-10). traMADol 50 2019-0 Yes [id number] 50mg Take 1 [facility] mg tablet 8-05 tablet by ity o f 00:00: mouth [place] 00 every 4 Medical (four) Branch hours as needed for Pain (scale 7-10). traMADol 50 2018-0 Yes [id number] 50mg Take 1 [facility] mg tablet 8-05 tablet by ity o f 00:00: mouth [place] 00 every 4 Medical (four) Branch hours as needed for Pain (scale 7-10). traMADol 50 2019-0 Yes [id number] 50mg Take 1 [facility] mg tablet 8-05 tablet by ity o f 00:00: mouth [place] 00 every 4 Medical (four) Branch hours as needed for Pain (scale 7-10). traMADol 50 2019-0 Yes [id number] 50mg Take 1 [facility] mg tablet 8-05 tablet by ity o f 00:00: mouth [place] 00 every 4 Medical (four) Branch hours as needed for Pain (scale 7-10). traMADol 50 2019-0 Yes [id number] 50mg Take 1 [facility] mg tablet 8-05 tablet by ity o f 00:00: mouth [place] 00 every 4 Medical (four) Branch hours as needed for Pain (scale 7-10). traMADol 50 2019-0 Yes [id number] 50mg Take 1 [facility] mg tablet 8-05 tablet by ity o f 00:00: mouth [place] 00 every 4 Medical (four) Branch hours as needed for Pain (scale 7-10). traMADol 50 2019-0 Yes [id number] 50mg Take 1 [facility] mg tablet 8-05 tablet by ity o f 00:00: mouth [place] 00 every 4 Medical (four) Branch hours as needed for Pain (scale 7-10). traMADol 50 2019-0 Yes [id number] 50mg Take 1 [facility] mg tablet 8-05 tablet by ity o f 00:00: mouth [place] 00 every 4 Medical (four) Branch hours as needed for Pain (scale 7-10). traMADol 50 2019-0 Yes [id number] 50mg Take 1 [facility] mg tablet 8-05 tablet by ity o f 00:00: mouth [place] 00 every 4 Medical (four) Branch hours as needed for Pain (scale 7-10). traMADol 50 2019-0 Yes [id number] 50mg Take 1 [facility] mg tablet 8-05 tablet by ity o f 00:00: mouth [place] 00 every 4 Medical (four) Branch hours as needed for Pain (scale 7-10). traMADol 50 2018-0 Yes [id number] 50mg Take 1 [facility] mg tablet 8-05 tablet by ity o f 00:00: mouth [place] 00 every 4 Medical (four) Branch hours as needed for Pain (scale 7-10). traMADol 50 2018-0 Yes [id number] 50mg Take 1 [facility] mg tablet 8-05 tablet by ity o f 00:00: mouth [place] 00 every 4 Medical (four) Branch hours as needed for Pain (scale 7-10). traMADol 50 2019-0 Yes [id number] 50mg Take 1 [facility] mg tablet 8-05 tablet by ity o f 00:00: mouth [place] 00 every 4 Medical (four) Branch hours as needed for Pain (scale 7-10). traMADol 50 2019-0 Yes [id number] 50mg Take 1 [facility] mg tablet 8-05 tablet by ity o f 00:00: mouth [place] 00 every 4 Medical (four) Branch hours as needed for Pain (scale 7-10). traMADol 50 2019-0 Yes [id number] 50mg Take 1 [facility] mg tablet 8-05 tablet by ity o f 00:00: mouth [place] 00 every 4 Medical (four) Branch hours as needed for Pain (scale 7-10). traMADol 50 2019-0 Yes [id number] 50mg Take 1 [facility] mg tablet 8-05 tablet by ity o f 00:00: mouth [place] 00 every 4 Medical (four) Branch hours as needed for Pain (scale 7-10). traMADol 50 Yes [id number] 50mg Take 1 [facility] mg tablet 8-05 tablet by ity o f 00:00: mouth [place] 00 every 4 Medical (four) Branch hours as needed for Pain (scale 7-10). finasteride 2017-09 Yes 5mg Take 1 Univ ers 5 mg tablet 2-18 tablet by ity of 00:00: mouth [place] 00 every Medical morning. Branch finasteride 2017-09 Yes 5mg Take 1 Univ ers 5 mg tablet 2-18 tablet by ity of 00:00: mouth [place] 00 every Medical morning. Branch finasteride 2017-09 Yes 5mg Take 1 [facility] ers 5 mg tablet 2-18 tablet by ity of 00:00: mouth [place] 00 every Medical morning. Branch finasteride 2017-09 Yes 5mg Take 1 Univ ers 5 mg tablet 2-18 tablet by ity of 00:00: mouth [place] 00 every Medical morning. Branch finasteride 2017-09 2019- No 5mg Take 1 Uni vers 5 mg tablet 2-18 08-09 tablet by it y of 00:00: 00:00 mouth [place] 00 :00 every Medical morning. Branch OMEPRAZOLE Yes Take by Univ ers (PRILOSEC 3-29 mouth. ity of ORAL) 21:05: [place] 21 Medical Branch L.ACID/L.CA Yes 1{tbl} Take 1 Un guillermina SEI/B.BIF/B 3-29 tablet by ity of .ASIF/FOS 21:05: mouth [place] (PROBIOTIC 21 daily. Medical BLEND ORAL) Branch rOPINIRole Yes 1mg Take 1 mg Un guillermina (REQUIP) 1 3-29 by mouth 3 ity of mg tablet 21:05: (three) [place] 21 times Medical daily. Branch sildenafil Yes 100mg Take 100 Un guillermina (VIAGRA) 3-29 mg by ity of 100 mg 21:05: mouth as [place] tablet 21 needed. Medical Branch atorvastati Yes 80mg Take 80 mg Univers n (LIPITOR) 3-29 by mouth ity of 80 mg 21:05: at [place] tablet 21 bedtime. Medical Branch CYCLOBENZAP Yes 10mg Take 10 mg [facility] RINE HCL 3-29 by mouth ity of (CYCLOBENZA 21:05: at [place] ALFRED ORAL) 21 bedtime. [facility] Branch hydrochloro Yes 25mg Take 25 mg [facility] thiazide 3-29 by mouth ity of (ESIDRIX) 21:05: daily. [place] 25 mg 21 Medical tablet Branch HYDROcodone Yes 1{tbl} Take 1 Un guillermina -acetaminop 3-29 tablet by ity of hen 5-325 21:05: mouth [place] mg tablet 21 every 6 Medical (six) Branch hours as needed. terazosin Yes 10mg Take 10 mg Un guillermina 10 mg 3-29 by mouth ity of capsule 21:05: at [place] 21 bedtime. Medical Branch methocarbam Yes 500mg Take 500 U nivers ol 500 mg 3-29 mg by ity of tablet 21:05: mouth as [place] 21 needed Medical (muscle Branch cramps). galantamine Yes 8mg Take 8 mg U nivers 8 mg tablet 3-29 by mouth ity of 21:05: daily. [place] [address] Medical Branch aspirin 325 0 Yes 325mg Take 325 U nivers mg tablet 3-29 mg by ity of 21:05: mouth [place] 21 daily. Medical Branch OMEPRAZOLE Yes Take by [facility] ers (PRILOSEC 3-29 mouth. ity of ORAL) 21:05: [place] 21 Medical Branch L.ACID/L.CA Yes 1{tbl} Take 1 Un guillermina SEI/B.BIF/B 3-29 tablet by ity of .ASIF/FOS 21:05: mouth [place] (PROBIOTIC 21 daily. Medical BLEND ORAL) Branch rOPINIRole Yes 1mg Take 1 mg Un guillermina (REQUIP) 1 3-29 by mouth 3 ity of mg tablet 21:05: (three) [place] 21 times Medical daily. Branch sildenafil Yes 100mg Take 100 Un guillermina (VIAGRA) 3-29 mg by ity of 100 mg 21:05: mouth as [place] tablet 21 needed. Medical Branch atorvastati Yes 80mg Take 80 mg Univers n (LIPITOR) 3-29 by mouth ity of 80 mg 21:05: at [place] tablet 21 bedtime. Medical Branch CYCLOBENZAP Yes 10mg Take 10 mg [facility] RINE HCL 3-29 by mouth ity of (CYCLOBENZA 21:05: at [place] ALFRED ORAL) 21 bedtime. [facility] Branch hydrochloro 2018-0 Yes 25mg Take 25 mg Univers thiazide 3-29 by mouth ity of (ESIDRIX) 21:05: daily. [place] 25 mg 21 Medical tablet Branch HYDROcodone 2018-0 Yes 1{tbl} Take 1 Un guillermina -acetaminop 3-29 tablet by ity of hen 5-325 21:05: mouth [place] mg tablet 21 every 6 Medical (six) Branch hours as needed. terazosin 2017-0 Yes 10mg Take 10 mg Un guillermina 10 mg 3-29 by mouth ity of capsule 21:05: at [place] 21 bedtime. Medical Branch methocarbam 0 Yes 500mg Take 500 U nivers ol 500 mg 3-29 mg by ity of tablet 21:05: mouth as [place] 21 needed Medical (muscle Branch cramps). galantamine 2017-0 Yes 8mg Take 8 mg U nivers 8 mg tablet 3-29 by mouth ity of 21:05: daily. [place] 21 Medical Branch aspirin 325 2017-0 Yes 325mg Take 325 U nivers mg tablet 3-29 mg by ity of 21:05: mouth [place] 21 daily. Medical Branch OMEPRAZOLE 0 Yes Take by [facility] ers (PRILOSEC 3-29 mouth. ity of ORAL) 21:05: [place] 21 Medical Branch L.ACID/L.CA 0 Yes 1{tbl} Take 1 Un guillermina SEI/B.BIF/B 3-29 tablet by ity of .ASIF/FOS 21:05: mouth [place] (PROBIOTIC 21 daily. Medical BLEND ORAL) Branch rOPINIRole 0 Yes 1mg Take 1 mg Un guillermina (REQUIP) 1 3-29 by mouth 3 ity of mg tablet 21:05: (three) [place] 21 times Medical daily. Branch sildenafil 2018-0 Yes 100mg Take 100 Un guillermina (VIAGRA) 3-29 mg by ity of 100 mg 21:05: mouth as [place] tablet 21 needed. Medical Branch atorvastati 0 Yes 80mg Take 80 mg Univers n (LIPITOR) 3-29 by mouth ity of 80 mg 21:05: at [place] tablet 21 bedtime. Medical Branch CYCLOBENZAP 0 Yes 10mg Take 10 mg [facility] RINE HCL 3-29 by mouth ity of (CYCLOBENZA 21:05: at [place] ALFRED ORAL) 21 bedtime. [facility] Branch hydrochloro 2018-0 Yes 25mg Take 25 mg [facility] thiazide 3-29 by mouth ity of (ESIDRIX) 21:05: daily. [place] 25 mg 21 Medical tablet Branch HYDROcodone [id number] Yes 1{tbl} Take 1 Un guillermina -acetaminop 3-29 tablet by ity of hen 5-325 21:05: mouth [place] mg tablet 21 every 6 Medical (six) Branch hours as needed. terazosin 0 Yes 10mg Take 10 mg Un guillermina 10 mg 3-29 by mouth ity of capsule 21:05: at [place] 21 bedtime. Medical Branch methocarbam 0 Yes 500mg Take 500 U nivers ol 500 mg 3-29 mg by ity of tablet 21:05: mouth as [place] 21 needed Medical (muscle Branch cramps). galantamine 0 Yes 8mg Take 8 mg U nivers 8 mg tablet 3-29 by mouth ity of 21:05: daily. [place] [address] Medical Branch aspirin 325 0 Yes 325mg Take 325 U nivers mg tablet 3-29 mg by ity of 21:05: mouth [place] 21 daily. Medical Branch OMEPRAZOLE Yes Take by [facility] ers (PRILOSEC 3-29 mouth. ity of ORAL) 21:05: [place] [address] Medical Branch L.ACID/L.CA 0 Yes 1{tbl} Take 1 Un guillermina SEI/B.BIF/B 3-29 tablet by ity of .ASIF/FOS 21:05: mouth [place] (PROBIOTIC 21 daily. Medical BLEND ORAL) Branch rOPINIRole Yes 1mg Take 1 mg Un guillermina (REQUIP) 1 3-29 by mouth 3 ity of mg tablet 21:05: (three) [place] 21 times Medical daily. Branch sildenafil 0 Yes 100mg Take 100 Un guillermina (VIAGRA) 3-29 mg by ity of 100 mg 21:05: mouth as [place] tablet 21 needed. Medical Branch atorvastati Yes 80mg Take 80 mg Univers n (LIPITOR) 3-29 by mouth ity of 80 mg 21:05: at [place] tablet 21 bedtime. Medical Branch CYCLOBENZAP Yes 10mg Take 10 mg [facility] RINE HCL 3-29 by mouth ity of (CYCLOBENZA 21:05: at [place] ALFRED ORAL) 21 bedtime. [facility] Branch hydrochloro 2018-0 Yes 25mg Take 25 mg [facility] thiazide 3-29 by mouth ity of (ESIDRIX) 21:05: daily. [place] 25 mg 21 Medical tablet Branch HYDROcodone 2018-0 Yes 1{tbl} Take 1 Un guillermina -acetaminop 3-29 tablet by ity of hen 5-325 21:05: mouth [place] mg tablet 21 every 6 Medical (six) Branch hours as needed. terazosin 2018-0 Yes 10mg Take 10 mg Un guillermina 10 mg 3-29 by mouth ity of capsule 21:05: at [place] 21 bedtime. Medical Branch methocarbam 2018-0 Yes 500mg Take 500 U nivers ol 500 mg 3-29 mg by ity of tablet 21:05: mouth as [place] 21 needed Medical (muscle Branch cramps). galantamine 2018-0 Yes 8mg Take 8 mg U nivers 8 mg tablet 3-29 by mouth ity of 21:05: daily. [place] [address] Medical Branch aspirin 325 2018-0 Yes 325mg Take 325 U nivers mg tablet 3-29 mg by ity of 21:05: mouth [place] 21 daily. Medical Branch gabapentin 2018-0 Yes 100mg Take 1 Univ ers (NEURONTIN) 3-29 capsule by it y of 100 mg 00:00: mouth 3 [place] capsule 00 (three) Medical times Branch daily. gabapentin 2018-0 Yes 100mg Take 1 Univ ers (NEURONTIN) 3-29 capsule by it y of 100 mg 00:00: mouth 3 [place] capsule 00 (three) Medical times Branch daily. gabapentin 2018-0 Yes 100mg Take 1 Univ ers (NEURONTIN) 3-29 capsule by it y of 100 mg 00:00: mouth 3 [place] capsule 00 (three) Medical times Branch daily. gabapentin 2018-0 Yes 100mg Take 1 Univ ers (NEURONTIN) 3-29 capsule by it y of 100 mg 00:00: mouth 3 [place] capsule 00 (three) Medical times Branch daily. gabapentin 2018-0 Yes 100mg Take 1 Univ ers (NEURONTIN) 3-29 capsule by it y of 100 mg 00:00: mouth 3 [place] capsule 00 (three) Medical times Branch daily. gabapentin 2018-0 Yes 100mg Take 1 Univ ers (NEURONTIN) 3-29 capsule by it y of 100 mg 00:00: mouth 3 [place] capsule 00 (three) Medical times Branch daily. gabapentin 2018-0 Yes 100mg Take 1 Univ ers (NEURONTIN) 3-29 capsule by it y of 100 mg 00:00: mouth 3 [place] capsule 00 (three) Medical times Branch daily. gabapentin 2018-0 Yes 100mg Take 1 Univ ers (NEURONTIN) 3-29 capsule by it y of 100 mg 00:00: mouth 3 [place] capsule 00 (three) Medical times Branch daily. gabapentin 2018-0 Yes 100mg Take 1 Univ ers (NEURONTIN) 3-29 capsule by it y of 100 mg 00:00: mouth 3 [place] capsule 00 (three) Medical times Branch daily. gabapentin 2018-0 Yes 100mg Take 1 Univ ers (NEURONTIN) 3-29 capsule by it y of 100 mg 00:00: mouth 3 [place] capsule 00 (three) Medical times Branch daily. gabapentin 2018-0 Yes 100mg Take 1 Univ ers (NEURONTIN) 3-29 capsule by it y of 100 mg 00:00: mouth 3 [place] capsule 00 (three) Medical times Branch daily. gabapentin 2018-0 Yes 100mg Take 1 Univ ers (NEURONTIN) 3-29 capsule by it y of 100 mg 00:00: mouth 3 [place] capsule 00 (three) Medical times Branch daily. gabapentin 2018-0 Yes 100mg Take 1 Univ ers (NEURONTIN) 3-29 capsule by it y of 100 mg 00:00: mouth 3 [place] capsule 00 (three) Medical times Branch daily. gabapentin 2018-0 Yes 100mg Take 1 Univ ers (NEURONTIN) 3-29 capsule by it y of 100 mg 00:00: mouth 3 [place] capsule 00 (three) Medical times Branch daily. gabapentin 2018-0 Yes 100mg Take 1 Univ ers (NEURONTIN) 3-29 capsule by it y of 100 mg 00:00: mouth 3 [place] capsule 00 (three) Medical times Branch daily. gabapentin 2018-0 Yes 100mg Take 1 Univ ers (NEURONTIN) 3-29 capsule by it y of 100 mg 00:00: mouth 3 [place] capsule 00 (three) Medical times Branch daily. gabapentin 2018-0 Yes 100mg Take 1 Univ ers (NEURONTIN) 3-29 capsule by it y of 100 mg 00:00: mouth 3 [place] capsule 00 (three) Medical times Branch daily. gabapentin 2018-0 Yes 100mg Take 1 Univ ers (NEURONTIN) 3-29 capsule by it y of 100 mg 00:00: mouth 3 [place] capsule 00 (three) Medical times Branch daily. gabapentin 2018-0 Yes 100mg Take 1 Univ ers (NEURONTIN) 3-29 capsule by it y of 100 mg 00:00: mouth 3 [place] capsule 00 (three) Medical times Branch daily. gabapentin 2018-0 Yes 100mg Take 1 Univ ers (NEURONTIN) 3-29 capsule by it y of 100 mg 00:00: mouth 3 [place] capsule 00 (three) Medical times Branch daily. gabapentin 2018-0 Yes 100mg Take 1 Univ ers (NEURONTIN) 3-29 capsule by it y of 100 mg 00:00: mouth 3 [place] capsule 00 (three) Medical times Branch daily. gabapentin 2018-0 Yes 100mg Take 1 Univ ers (NEURONTIN) 3-29 capsule by it y of 100 mg 00:00: mouth 3 [place] capsule 00 (three) Medical times Branch daily. gabapentin 2018-0 Yes 100mg Take 1 Univ ers (NEURONTIN) 3-29 capsule by it y of 100 mg 00:00: mouth 3 [place] capsule 00 (three) Medical times Branch daily. gabapentin 2018-0 Yes 100mg Take 1 Univ ers (NEURONTIN) 3-29 capsule by it y of 100 mg 00:00: mouth 3 [place] capsule 00 (three) Medical times Branch daily. furosemide 2016-09 Yes 40mg Take 40 mg U nivers 40 mg 2-11 by mouth ity of tablet 00:00: every [place] 00 other day. Medical Indication Branch s: Takes as needed furosemide 2016-09 Yes 40mg Take 40 mg U nivers 40 mg 2-11 by mouth ity of tablet 00:00: every [place] 00 other day. Medical Indication Branch s: Takes as needed furosemide 2016-09 Yes 40mg Take 40 mg U nivers 40 mg 2-11 by mouth ity of tablet 00:00: every [place] 00 other day. Medical Indication Branch s: Takes as needed furosemide 2016-09 Yes 40mg Take 40 mg U nivers 40 mg 2-11 by mouth ity of tablet 00:00: every [place] 00 other day. Medical Indication Branch s: Takes as needed furosemide 2016-09 Yes 40mg Take 40 mg U nivers 40 mg 2-11 by mouth ity of tablet 00:00: every [place] 00 other day. Medical Branch furosemide 2016-09 Yes 40mg Take 40 mg U nivers 40 mg 2-11 by mouth ity of tablet 00:00: every [place] 00 other day. Medical Indication Branch s: Takes as needed furosemide 2016-09 Yes 40mg Take 40 mg U nivers 40 mg 2-11 by mouth ity of tablet 00:00: every [place] 00 other day. Medical Indication Branch s: Takes as needed furosemide 2016-09 Yes 40mg Take 40 mg U nivers 40 mg 2-11 by mouth ity of tablet 00:00: every [place] 00 other day. Medical Indication Branch s: Takes as needed furosemide 2016-09 Yes 40mg Take 40 mg U nivers 40 mg 2-11 by mouth ity of tablet 00:00: every [place] 00 other day. Medical Indication Branch s: Takes as needed furosemide 2016-09 Yes 40mg Take 40 mg U nivers 40 mg 2-11 by mouth ity of tablet 00:00: every [place] 00 other day. Medical Indication Branch s: Takes as needed furosemide 2016-09 Yes 40mg Take 40 mg U nivers 40 mg 2-11 by mouth ity of tablet 00:00: every [place] 00 other day. Medical Indication Branch s: Takes as needed furosemide 2016-09 Yes 40mg Take 40 mg U nivers 40 mg 2-11 by mouth ity of tablet 00:00: every [place] 00 other day. Medical Indication Branch s: Takes as needed furosemide 2016-09 Yes 40mg Take 40 mg U nivers 40 mg 2-11 by mouth ity of tablet 00:00: every [place] 00 other day. Medical Indication Branch s: Takes as needed furosemide 2016-09 Yes 40mg Take 40 mg U nivers 40 mg 2-11 by mouth ity of tablet 00:00: every [place] other day. Medical Indication Branch s: Takes as needed furosemide 2016-09 Yes 40mg Take 40 mg U nivers 40 mg 2-11 by mouth ity of tablet 00:00: every [place] 00 other day. Medical Indication Branch s: Takes as needed furosemide 2017- Yes 40mg Take 40 mg U nivers 40 mg 2-11 by mouth ity of tablet 00:00: every [place] 00 other day. Medical Branch furosemide 2016-09 Yes 40mg Take 40 mg U nivers 40 mg 2-11 by mouth ity of tablet 00:00: every [place] 00 other day. Medical Indication Branch s: Takes as needed furosemide 2016- Yes 40mg Take 40 mg U nivers 40 mg 2-11 by mouth ity of tablet 00:00: every [place] other day. Medical Indication Branch s: Takes as needed furosemide 2016-09 Yes 40mg Take 40 mg U nivers 40 mg 2-11 by mouth ity of tablet 00:00: every [place] other day. Medical Indication Branch s: Takes as needed furosemide 2016-09 Yes 40mg Take 40 mg U nivers 40 mg 2-11 by mouth ity of tablet 00:00: every [place] other day. Medical Indication Branch s: Takes as needed furosemide 2016-09 Yes 40mg Take 40 mg U nivers 40 mg 2-11 by mouth ity of tablet 00:00: every [place] other day. Medical Indication Branch s: Takes as needed furosemide 2016-09 Yes 40mg Take 40 mg U nivers 40 mg 2-11 by mouth ity of tablet 00:00: every [place] other day. Medical Indication Branch s: Takes as needed furosemide 2016-09 Yes 40mg Take 40 mg U nivers 40 mg 2-11 by mouth ity of tablet 00:00: every [place] other day. Medical Branch furosemide 2016-09 Yes 40mg Take 40 mg U nivers 40 mg 2-11 by mouth ity of tablet 00:00: every [place] 00 other day. Medical Branch acetaminoph 2019- No 1{tbl} Take 1 U nivers en-codeine 3-05 tablet by ity of (TYLENOL-CO 00:00: 00:[place] DEINE #3[place] 00 :00 every 4 Medical 300-30 mg (four) Branch tablet hours as needed for Pain (scale 4-6) or Pain (scale 7-10). acetaminoph 2019- No 1{tbl} Take 1 U nivers en-codeine 3- 08-05 tablet by ity of (TYLENOL-CO 00:00: 00:[place] DE[place] #3[place] 00 :00 every 4 Medical 300-30 mg (four) Branch tablet hours as needed for Pain (scale 4-6) or Pain (scale 7-10). traMADOL 50 2019- No 50mg Take 1 Uni vers mg tablet 11-09-05 tablet by ity of 00:00: 00:00 mouth [place] 00 :00 every 4 Medical (four) Branch hours as needed for Pain (scale 7-10). traMADOL 50 2019- No 50mg Take 1 Uni vers mg tablet 11-09-05 tablet by ity of 00:00: 00:00 mouth [place] 00 :00 every 4 Medical (four) Branch hours as needed for Pain (scale 7-10). acetaminoph 2019- No 1{tbl} Take 1 U nivers en-codeine 2 08-05 tablet by ity of (TYLENOL-CO 00:00: 00:[place] DE[place] #3[place] 00 :00 every 4 Medical 300-30 mg (four) Branch tablet hours as needed for Pain (scale 4-6) or Pain (scale 7-10). acetaminoph 2019- No 1{tbl} Take 1 U nivers en-codeine 10-25-05 tablet by ity of (TYLENOL-CO 00:00: 00:[place] DEINE #3[place] 00 :00 every 4 Medical 300-30 mg (four) Branch tablet hours as needed for Pain (scale 4-6) or Pain (scale 7-10). omeprazole 2015-09 Yes 20mg Take 20 mg U nivers (PRILOSEC) 1-12 by mouth ity o f 20 mg 00:00: daily. [place] capsule [facility] omeprazole 2015-09 Yes 20mg Take 20 mg U nivers (PRILOSEC) 1-12 by mouth ity o f 20 mg 00:00: daily. [place] capsule [facility] omeprazole 2015-09 Yes 20mg Take 20 mg U nivers (PRILOSEC) 1-12 by mouth ity o f 20 mg 00:00: daily. [place] capsule [facility] omeprazole 2015-09 Yes 20mg Take 20 mg U nivers (PRILOSEC) 1-12 by mouth ity o f 20 mg 00:00: daily. [place] capsule [facility] omeprazole 2015-09 Yes 20mg Take 20 mg U nivers (PRILOSEC) 1-12 by mouth ity o f 20 mg 00:00: daily. [place] capsule [facility] omeprazole 2015-09 Yes 20mg Take 20 mg U nivers (PRILOSEC) 1-12 by mouth ity o f 20 mg 00:00: daily. [place] capsule [facility] omeprazole 2015-09 Yes 20mg Take 20 mg U nivers (PRILOSEC) 1-12 by mouth ity o f 20 mg 00:00: daily. [place] capsule Medical Branch omeprazole 2015-09 Yes 20mg Take 20 mg U nivers (PRILOSEC) 1-12 by mouth ity o f 20 mg 00:00: daily. [place] capsule [facility] omeprazole 2015-09 Yes 20mg Take 20 mg U nivers (PRILOSEC) 1-12 by mouth ity o f 20 mg 00:00: daily. [place] capsule [facility] omeprazole 2015-09 Yes 20mg Take 20 mg U nivers (PRILOSEC) 1-12 by mouth ity o f 20 mg 00:00: daily. [place] capsule [facility] omeprazole 2015-09 Yes 20mg Take 20 mg U nivers (PRILOSEC) 1-12 by mouth ity o f 20 mg 00:00: daily. [place] capsule [facility] omeprazole 2015-09 Yes 20mg Take 20 mg U nivers (PRILOSEC) 1-12 by mouth ity o f 20 mg 00:00: daily. [place] capsule [facility] omeprazole 2015-09 Yes 20mg Take 20 mg U nivers (PRILOSEC) 1-12 by mouth ity o f 20 mg 00:00: daily. [place] capsule [facility] omeprazole 2015-09 Yes 20mg Take 20 mg U nivers (PRILOSEC) 1-12 by mouth ity o f 20 mg 00:00: daily. [place] capsule [facility] omeprazole 2015-09 Yes 20mg Take 20 mg U nivers (PRILOSEC) 1-12 by mouth ity o f 20 mg 00:00: daily. [place] capsule [facility] omeprazole 2015-09 Yes 20mg Take 20 mg U nivers (PRILOSEC) 1-12 by mouth ity o f 20 mg 00:00: daily. [place] capsule [facility] omeprazole 2015-09 Yes 20mg Take 20 mg U nivers (PRILOSEC) 1-12 by mouth ity o f 20 mg 00:00: daily. [place] capsule [facility] omeprazole 2015-09 Yes 20mg Take 20 mg U nivers (PRILOSEC) 1-12 by mouth ity o f 20 mg 00:00: daily. [place] capsule Medical Branch omeprazole 2015-09 Yes 20mg Take 20 mg U nivers (PRILOSEC) 1-12 by mouth ity o f 20 mg 00:00: daily. [place] capsule Medical Branch omeprazole 2015-09 Yes 20mg Take 20 mg U nivers (PRILOSEC) 1-12 by mouth ity o f 20 mg 00:00: daily. [place] capsule Medical Branch omeprazole 2015-09 Yes 20mg Take 20 mg U nivers (PRILOSEC) 1-12 by mouth ity o f 20 mg 00:00: daily. [place] capsule Medical Branch omeprazole 2015-09 Yes 20mg Take 20 mg U nivers (PRILOSEC) 1-12 by mouth ity o f 20 mg 00:00: daily. [place] capsule Medical Branch omeprazole 2015-09 Yes 20mg Take 20 mg U nivers (PRILOSEC) 1-12 by mouth ity o f 20 mg 00:00: daily. [place] capsule Medical Branch omeprazole 2015-09 Yes 20mg Take 20 mg U nivers (PRILOSEC) 1-12 by mouth ity o f 20 mg 00:00: daily. [place] capsule Medical Branch dorzolamide 2015-09 Yes 1[drp] Place 1 U nivers (TRUSOPT) 2 0-02 Drop in ity o f % 00:00: both eyes [place] ophthalmic 00 3 (three) Medi sydnee solution times Branch daily. dorzolamide 2015-09 Yes 1[drp] Place 1 U nivers (TRUSOPT) 2 0-02 Drop in ity o f % 00:00: both eyes [place] ophthalmic 00 3 (three) Medi sydnee solution times Branch daily. dorzolamide 2015-09 Yes 1[drp] Place 1 U nivers (TRUSOPT) 2 0-02 Drop in ity o f % 00:00: both eyes [place] ophthalmic 00 3 (three) Medi sydnee solution times Branch daily. dorzolamide 2015-09 Yes 1[drp] Place 1 U nivers (TRUSOPT) 2 0-02 Drop in ity o f % 00:00: both eyes [place] ophthalmic 00 3 (three) Medi sydnee solution times Branch daily. dorzolamide 2015-09 Yes 1[drp] Place 1 U nivers (TRUSOPT) 2 0-02 Drop in ity o f % 00:00: both eyes [place] ophthalmic 00 3 (three) Medi sydnee solution times Branch daily. dorzolamide 2015-09 Yes 1[drp] Place 1 U nivers (TRUSOPT) 2 0-02 Drop in ity o f % 00:00: both eyes [place] ophthalmic 00 3 (three) Medi sydnee solution times Branch daily. dorzolamide 2015-09 Yes 1[drp] Place 1 U nivers (TRUSOPT) 2 0-02 Drop in ity o f % 00:00: both eyes [place] ophthalmic 00 3 (three) Medi sydnee solution times Branch daily. dorzolamide 2015-09 Yes 1[drp] Place 1 U nivers (TRUSOPT) 2 0-02 Drop in ity o f % 00:00: both eyes [place] ophthalmic 00 3 (three) Medi sydnee solution times Branch daily. dorzolamide 2015-09 Yes 1[drp] Place 1 U nivers (TRUSOPT) 2 0-02 Drop in ity o f % 00:00: both eyes [place] ophthalmic 00 3 (three) Medi sydnee solution times Branch daily. dorzolamide 2015-09 Yes 1[drp] Place 1 U nivers (TRUSOPT) 2 0-02 Drop in ity o f % 00:00: both eyes [place] ophthalmic 00 3 (three) Medi sydnee solution times Branch daily. dorzolamide 2015-09 Yes 1[drp] Place 1 U nivers (TRUSOPT) 2 0-02 Drop in ity o f % 00:00: both eyes [place] ophthalmic 00 3 (three) Medi sydnee solution times Branch daily. dorzolamide 2015-09 Yes 1[drp] Place 1 U nivers (TRUSOPT) 2 0-02 Drop in ity o f % 00:00: both eyes [place] ophthalmic 00 3 (three) Medi sydnee solution times Branch daily. dorzolamide 2015-09 Yes 1[drp] Place 1 U nivers (TRUSOPT) 2 0-02 Drop in ity o f % 00:00: both eyes [place] ophthalmic 00 3 (three) Medi sydnee solution times Branch daily. dorzolamide 2015-09 Yes 1[drp] Place 1 U nivers (TRUSOPT) 2 0-02 Drop in ity o f % 00:00: both eyes [place] ophthalmic 00 3 (three) Medi sydnee solution times Branch daily. dorzolamide 2015-09 Yes 1[drp] Place 1 U nivers (TRUSOPT) 2 0-02 Drop in ity o f % 00:00: both eyes [place] ophthalmic 00 3 (three) Medi sydnee solution times Branch daily. dorzolamide 2015-09 Yes 1[drp] Place 1 U nivers (TRUSOPT) 2 0-02 Drop in ity o f % 00:00: both eyes [place] ophthalmic 00 3 (three) Medi sydnee solution times Branch daily. dorzolamide 2015-09 Yes 1[drp] Place 1 U nivers (TRUSOPT) 2 0-02 Drop in ity o f % 00:00: both eyes [place] ophthalmic 00 3 (three) Medi sydnee solution times Branch daily. dorzolamide 2015-09 Yes 1[drp] Place 1 U nivers (TRUSOPT) 2 0-02 Drop in ity o f % 00:00: both eyes [place] ophthalmic 00 3 (three) Medi sydnee solution times Branch daily. dorzolamide 2015-09 Yes 1[drp] Place 1 U nivers (TRUSOPT) 2 0-02 Drop in ity o f % 00:00: both eyes [place] ophthalmic 00 3 (three) Medi sydnee solution times Branch daily. dorzolamide 2015-09 Yes 1[drp] Place 1 U nivers (TRUSOPT) 2 0-02 Drop in ity o f % 00:00: both eyes [place] ophthalmic 00 3 (three) Medi sydnee solution times Branch daily. dorzolamide 2015-09 Yes 1[drp] Place 1 U nivers (TRUSOPT) 2 0-02 Drop in ity o f % 00:00: both eyes [place] ophthalmic 00 3 (three) Medi sydnee solution times Branch daily. dorzolamide 2015-09 Yes 1[drp] Place 1 U nivers (TRUSOPT) 2 0-02 Drop in ity o f % 00:00: both eyes [place] ophthalmic 00 3 (three) Medi sydnee solution times Branch daily. dorzolamide 2015-09 Yes 1[drp] Place 1 U nivers (TRUSOPT) 2 0-02 Drop in ity o f % 00:00: both eyes [place] ophthalmic 00 3 (three) Medi sydnee solution times Branch daily. dorzolamide 2015-09 Yes 1[drp] Place 1 U nivers (TRUSOPT) 2 0-02 Drop in ity o f % 00:00: both eyes [place] ophthalmic 00 3 (three) Medi sydnee solution [facility] Branch daily. amLODIPine 2016-0 Yes 5mg Take 5 mg Un guillermina (NORVASC) 5 8-16 by mouth ity of mg tablet 00:00: daily. [facility] amLODIPine 2016-0 Yes 5mg Take 5 mg Un guillermina (NORVASC) 5 8-16 by mouth ity of mg tablet 00:00: daily. [place] [facility] amLODIPine 2016-0 Yes 5mg Take 5 mg Un guillermina (NORVASC) 5 8-16 by mouth ity of mg tablet 00:00: daily. [place] [facility] amLODIPine 2016-0 Yes 5mg Take 5 mg Un guillermina (NORVASC) 5 8-16 by mouth ity of mg tablet 00:00: daily. [place] [facility] amLODIPine 2016-0 Yes 5mg Take 5 mg Un guillermina (NORVASC) 5 8-16 by mouth ity of mg tablet 00:00: daily. [place] [facility] amLODIPine 2016-0 Yes 5mg Take 5 mg Un guillermina (NORVASC) 5 8-16 by mouth ity of mg tablet 00:00: daily. [place] [facility] amLODIPine 2016-0 Yes 5mg Take 5 mg Un guillermina (NORVASC) 5 8-16 by mouth ity of mg tablet 00:00: daily. [place] [facility] amLODIPine 2016-0 Yes 5mg Take 5 mg Un guillermina (NORVASC) 5 8-16 by mouth ity of mg tablet 00:00: daily. [place] [facility] amLODIPine 2016-0 Yes 5mg Take 5 mg Un guillermina (NORVASC) 5 8-16 by mouth ity of mg tablet 00:00: daily. [place] [facility] amLODIPine 2016-0 Yes 5mg Take 5 mg Un guillermina (NORVASC) 5 8-16 by mouth ity of mg tablet 00:00: daily. [place] [facility] amLODIPine 2016-0 Yes 5mg Take 5 mg Un guillermina (NORVASC) 5 8-16 by mouth ity of mg tablet 00:00: daily. [place] [facility] amLODIPine 2016-0 Yes 5mg Take 5 mg Un guillermina (NORVASC) 5 8-16 by mouth ity of mg tablet 00:00: daily. [place] [facility] amLODIPine 2016-0 Yes 5mg Take 5 mg Un guillermina (NORVASC) 5 8-16 by mouth ity of mg tablet 00:00: daily. [place] [facility] amLODIPine 2016-0 Yes 5mg Take 5 mg Un guillermina (NORVASC) 5 8-16 by mouth ity of mg tablet 00:00: daily. [place] [facility] amLODIPine 2016-0 Yes 5mg Take 5 mg Un guillermina (NORVASC) 5 8-16 by mouth ity of mg tablet 00:00: daily. [place] [facility] amLODIPine 2016-0 Yes 5mg Take 5 mg Un guillermina (NORVASC) 5 8-16 by mouth ity of mg tablet 00:00: daily. [place] [facility] amLODIPine 2016-0 Yes 5mg Take 5 mg Un guillermina (NORVASC) 5 8-16 by mouth ity of mg tablet 00:00: daily. [place] [facility] amLODIPine 2016-0 Yes 5mg Take 5 mg Un guillermina (NORVASC) 5 8-16 by mouth ity of mg tablet 00:00: daily. [place] [facility] amLODIPine 2016-0 Yes 5mg Take 5 mg Un guillermina (NORVASC) 5 8-16 by mouth ity of mg tablet 00:00: daily. [place] [facility] amLODIPine 2016-0 Yes 5mg Take 5 mg Un guillermina (NORVASC) 5 8-16 by mouth ity of mg tablet 00:00: daily. [place] [facility] amLODIPine 2016-0 Yes 5mg Take 5 mg Un guillermina (NORVASC) 5 8-16 by mouth ity of mg tablet 00:00: daily. [place] [facility] amLODIPine 2016-0 Yes 5mg Take 5 mg Un guillermina (NORVASC) 5 8-16 by mouth ity of mg tablet 00:00: daily. [place] [facility] amLODIPine 2016-0 Yes 5mg Take 5 mg Un guillermina (NORVASC) 5 8-16 by mouth ity of mg tablet 00:00: daily. [place] [facility] amLODIPine 2016-0 Yes 5mg Take 5 mg Un guillermina (NORVASC) 5 8-16 by mouth ity of mg tablet 00:00: daily. [address] Immunizations Ordered Filled Immunization Date Status Comments Sour e Immunization Name Name SARS-COV-2 COVID-19 2021-08-08 Completed Unive rsity of MODERNA BOOSTER 00:00:00 [place] [facility] ical VACCINE Branch Vital Signs Vital Name Observation Time Observation Value Comments Source Systolic blood 2019-06-04 13:00:00 126 mm[Hg] Univer sity of pressure [place] [facility] Diastolic blood 2019-06-04 13:00:00 59 mm[Hg] Unive rsity of pressure [place] [facility] Heart rate 2019-06-04 13:00:00 83 /min [facility] [place] [facility] Body temperature 2019-06-04 13:00:00 36.78 Lily [facility] [place] [facility] Respiratory rate 2019-06-04 13:00:00 18 /min [facility] [place] [facility] Oxygen saturation in 2019-06-04 13:00:00 97 /min [facility] of Arterial blood by [place] [facility] P[facility] oximetry Branch Body weight 2019-06-03 13:00:00 97.523 kg [facility] [place] [facility] BMI 2019-06-03 13:00:00 34.70 kg/m2 [facility] [place] [facility] Body height 2019-05-28 16:00:00 167.6 cm [facility] [place] [facility] Systolic blood 2019-06-04 13:00:00 126 mm[Hg] Univer sity of pressure [place] [facility] Diastolic blood 2019-06-04 13:00:00 59 mm[Hg] Unive rsity of pressure [place] [facility] Heart rate 2019-06-04 13:00:00 83 /min [facility] [place] [facility] Body temperature 2019-06-04 13:00:00 36.78 Lily [facility] [place] [facility] Respiratory rate 2019-06-04 13:00:00 18 /min [facility] [place] [facility] Oxygen saturation in 2019-06-04 13:00:00 97 /min [facility] of Arterial blood by [employer] sydnee Pulse oximetry Branch Body weight 2019-06-03 13:00:00 97.523 kg [facility] [place] [facility] BMI 2019-06-03 13:00:00 34.70 kg/m2 [facility] [place] [facility] Body height 2019-05-28 16:00:00 167.6 cm [facility] [place] [facility] Systolic blood 2019-05-09 14:17:00 118 mm[Hg] Univer sity of pressure [place] [facility] Diastolic blood 2019-05-09 14:17:00 64 mm[Hg] Unive rsity of pressure [place] [facility] Heart rate 2019-05-09 14:17:00 79 /min [facility] [place] [facility] Body height 2019-05-09 14:17:00 162.6 cm [facility] [place] [facility] Body weight 2019-05-09 14:17:00 105.235 kg [facility] [place] [facility] BMI 2019-05-09 14:17:00 39.82 kg/m2 [facility] [place] [facility] Systolic blood 2019-05-09 14:17:00 118 mm[Hg] Univer sity of pressure [place] [facility] Diastolic blood 2019-05-09 14:17:00 64 mm[Hg] Unive rsity of pressure [place] [facility] Heart rate 2019-05-09 14:17:00 79 /min [facility] [place] [facility] Body height 2019-05-09 14:17:00 162.6 cm [facility] [place] [facility] Body weight 2019-05-09 14:17:00 105.235 kg [facility] [place] [facility] BMI 2019-05-09 14:17:00 39.82 kg/m2 [facility] [place] [facility] Systolic blood 2019-04-25 17:00:00 128 mm[Hg] Univer sity of pressure [place] [facility] Diastolic blood 2019-04-25 17:00:00 66 mm[Hg] Unive rsity of pressure [place] [facility] Heart rate 2019-04-25 17:00:00 77 /min [facility] [place] [facility] Body temperature 2019-04-25 17:00:00 36.83 Lily Univ ersity of [facility] Respiratory rate 2019-04-25 17:00:00 26 /min Univ ersity of [facility] Oxygen saturation in 2019-04-25 17:00:00 94 /min [facility] Arterial blood by [facility] Pulse oximetry Branch Body height 2019-04-25 06:46:00 162.6 cm [facility] [place] [facility] Body weight 2019-04-25 06:46:00 105.461 kg [facility] [place] [facility] BMI 2019-04-25 06:46:00 39.91 kg/m2 Universi ty of [facility] Branch Systolic blood 2019-04-21 21:06:00 133 mm[Hg] Univer sity of pressure [facility] Diastolic blood 2019-04-21 21:06:00 66 mm[Hg] Unive rsity of pressure [facility] Heart rate 2019-04-21 21:06:00 71 /min [facility] Body temperature 2019-04-21 21:06:00 36.67 Lily [facility] Respiratory rate 2019-04-21 21:06:00 16 /min [facility] Procedure Date / Time Performing Clinician Source Performed SARS-COV-2 COVID-19 2021-08-08 20:06:18 Doctor Unassigned, No Un iversity [facility] VACCINE Name [facility] BOOSTER,0.25ML,IM (MODERNA) REFERRAL- 2019-09-18 06:01:00 Doctor Unassigned, No [facility] REQUEST/RESPONSE Name [facility] MAGNESIUM 2019-06-04 09:16:00 Razia [facility] BASIC METABOLIC PANEL 2019-06-04 09:16:00 Jing Randle [facility] (NA, K, CL, CO2, [facility] GLUCOSE, BUN, CREATININE, CA) CBC WITH DIFFERENTIAL 2019-06-04 09:16:00 Razia [facility] BASIC METABOLIC PANEL 2019-06-03 10:04:00 Jesus Alberto Silverman [facility] (NA, K, CL, CO2, [facility] GLUCOSE, BUN, CREATININE, CA) CBC WITH DIFFERENTIAL 2019-06-03 10:04:00 Jesus Alberto Silverman [facility] XR KNEE <3 VW RIGHT 2019-06-02 16:30:44 Jesus Alberto Silverman [facility] NERVE BLOCK 2019-06-02 13:19:55 Adarsh [facility] INTUBATION 2019-06-02 12:58:40 Adarsh [facility] TOTAL KNEE ARTHROPLASTY 2019-06-02 12:24:00 [facility] AND [facility]EN 2019-06-02 12:06:00 Jesus Alberto Silverman [facility] ADMISSION 2019-06-02 05:01:00 Doctor Unassigned, No [facility] [place] Name Medical Branch XR CHEST 1 VW 2019-05-29 19:35:07 Jesus Alberto Silverman [facility] MEDICAL 2019-05-16 05:01:00 Doctor Unassigned, No [facility] RELEASE/CLEARANCE FORMS Name [facility] ECHO ROUTINE W/DOPPLER 2019-04-25 14:43:15 Quinn Duggan [facility] COLOR [facility] VITAMIN B12, LEVEL 2019-04-25 11:14:[address] [facility] FOLATE 2019-04-25 11:14:00 [facility] TROPONIN I 2019-04-25 11:14:00 [facility] BASIC METABOLIC PANEL 2019-04-25 11:14:00 Quinn Duggan [facility] (NA, K, CL, CO2, Medical Branch GLUCOSE, BUN, CREATININE, CA) IRON PANEL 2019-04-25 11:14[facility]00 [facility] 2019-04-25 11:14:00 Quinn Duggan [facility] ADC,CLC OR LCC ONLY - 2019-04-25 05:24:00 Daniel Cain [facility] INFLUENZA A & B DIRECT Medical [facility] ANTIGEN URINALYSIS 2019-04-25 05:23:00 Daniel Cain [facility] XR CHEST 1 VW 2019-04-25 04:39:12 Daniel Cain [facility] [place] [facility] CERVICAL SPINE WO 2019-04-25 04:38:50 Daniel Cain [facility] CONTRAST [facility] CT HEAD WO CONTRAST 2019-04-25 04:38:50 Daniel Cain [facility] CREATINE KINASE 2019-04-25 03:52:00 Quinn Duggan [facility] LIPASE 2019-04-25 03:52:00 Daniel Cain [facility] MAGNESIUM 2019-04-25 03:52:00 [facility] FERRITIN SERUM 2019-04-25 03:52:00 Quinn Duggan o f [facility] TROPONIN I 2019-04-25 03:52:00 Daniel Cain [facility] THYROID STIMULATING 2019-04-25 03:52:00 Quinn Duggan [facility] HORMONE [facility] COMP. METABOLIC PANEL 2019-04-25 03:52:00 Daniel Cain [facility] ([id number]) [facility] CBC WITH DIFFERENTIAL 2019-04-25 03:52:00 Daniel Cain [facility] GLYCOSYLATED HEMOGLOBIN 2019-04-25 03:52:00 Quinn Duggan [facility] (A1C) [facility] PROTHROMBIN TIME / INR 2019-04-25 03:52:00 Daniel Cain [facility] ACTIVATED PARTIAL 2019-04-25 03:52:[address] [facility] FOR 2019-04-25 03:51:01 [facility] Name [facility] EKG-12 LEAD 2019-04-25 03:45:24 Daniel Cain [facility] EMERGENCY DEPARTMENT 2019-04-24 05:01:00 Doctor Unassigned, No U [facility] DOCUMENTS Name [facility] Encounters Start End Encounter Admission Attending Care Care Encounter Source Date/Time Date/Time Type Type Clinicians Facility Department ID 2022-05-16 2022-05-16 Outpatient ERICKSON_R [facility] [id number] [place] 00:00:00 00:00:00 [facility] 2022-04-11 2022-04-11 Outpatient ERICKSON_R [facility] [id number] [place] 02:48:00 02:48:00 [facility]26 [facility] 2022-04-10 2022-04-10 Outpatient ERICKSON_R [facility] [id number] [place] 05:26:00 05:26:00 725 [facility] 2022-04-07 2022-04-07 Outpatient ERICKSON_R [facility] [id number] -[id number] [place] 11:17:00 11:17:00 723 [facility] 2022-04-03 2022-04-03 Outpatient ERICKSON_R [facility] [id number] -[id number] [place] 03:07:00 03:07:00 718 [facility] 2022-04-03 2022-04-03 Outpatient Chinmay [facility] [id number] 00:00:00 00:00:00 Ted [id number] Adrian [id number] 2021-08-08 2021-08-08 Outpatient Charissa BUCKNER [facility] [id number] Univers 13:20:00 13:17:19 RIVERA ochoa [facility] 2021-08-08 2021-08-08 Imm/Inj Nurse, Adc Pob Immunization RUST 1.2.840.114 [id number] Univers 13:16:13 13:17:19 Visit Rivera [facility]1.13 .[facility] 4.2.7.2.686 [facility] [phone] Or dical [address] 2021-07-27 2021-07-27 Outpatient ERICKSON_R [facility] 8032 -[id number] [place] 02:39:00 02:39:00 110 [facility] 2021-07-22 2021-07-22 Outpatient ERICKSON_R [facility] 8032 -[id number] [place] 03:26:00 03:26:00 105 [facility] 2021-07-21 2021-07-21 Outpatient ERICKSON_R [facility] [id number] -[id number] [place] 09:31:00 09:31:00 104 [facility] 2021-07-21 2021-07-21 Outpatient Earle [facility] [id number] 00:00:00 00:00:00 Ben [id number] Gia [id number] 2021-05-13 2021-05-13 Outpatient ERICKSON_R [facility] 8032 -[id number] [place] 04:16:00 04:16:00 103 [facility] 2021-05-09 2021-05-09 Outpatient ERICKSON_R [facility] [id number] [place] 06:26:00 06:26:00 823 [facility] 2021-05-09 2021-05-09 Outpatient Chinmay, [facility] [id number] 00:00:00 00:00:00 Ted [id number] Adrian [id number] 2020-12-30 Outpatient ERICKSON_R [facility] 8032 -[id number] [place] 01:01:00 01:01:00 415 [facility] 2020-11-25 2020-11-25 Outpatient ERICKSON_R [facility] 8032 -[id number] [place] 01:01:00 01:01:00 311 [facility] 2019-09-18 2019-09-18 Orders Doctor WILSON 1.2.840.114 [id number] Univers 00:00:00 00:00:00 Only Unassigned, EM 350.1.13.10 ity of [place] [facility] 4.2.7.2.686 Jamie as [phone] [address] 2019-09-18 2019-09-18 Orders Doctor WILSON 1.2.840.114 [id number] 00:00:00 00:00:00 Only Unassigned, EM 350.1.13.10 [place] [facility] 4.2.7.2.686 [id number] [facility] 2019-06-06 2019-06-06 Transition Radha Watkins 1.2.840.114 [id number] Univers 00:00:00 00:00:00 of Care Merna Peralta 350.1.13.10 it y [phone] [address] [place] 2019-06-06 2019-06-06 Transition Radha Watkins 1.2.840.114 [id number] 00:00:00 00:00:00 of Care Merna Peralta 350.1.13.10 [place] 4.2.7.2.686 [id number] [facility] 2019-06-05 2019-06-05 [facility]phone [facility] [id number] [facility] 00:00:00 00:00:00 Mike Amirah [place] 350.1.13.10 i ty [place] [phone] Or dical [facility] 198 [facility] 2019-06-05 2019-06-05 [facility] [id number] 00:00:00 00:00:00 Mike Scruggs [place] 350.1.13.10 [place] 4.2.7.2.686 Professio [phone] [address] 2019-06-02 2019-06-04 [facility] 1.2.840.114 [id number] [facility] 06:50:00 11:42:00 Encounter Jesus Alberto Marie 350.1.13.10 ity [place] [phone] [address] 2019-06-02 2019-06-04 [facility] 1.2.840.114 [id number] 06:50:00 11:42:00 Encounter Jesus Alberto Marie 350.1.13.10 [place] 4.2.7.2.686 [place] [id number] [facility] 2019-06-02 2019-06-02 Anesthesia [facility] 1.2.840.114 [id number] [facility] 07:39:00 09:37:00 Devyn Marie 350.1.13.10 ity [place] [phone] [facility] [address] 2019-06-02 2019-06-02 Anesthesia [facility] 1.2.840.114 [id number] 07:39:00 09:37:00 Devyn Marie 350.1.13.10 [place] 4.2.7.2.686 Surgical [phone] [place] [address] 2019-06-02 2019-06-02 Orders Doctor WILSON 1.2.840.114 [id number] Univers 00:00:00 00:00:00 Only Unassigned, EM 350.1.13.10 [facility] [place] [facility] 4.2.7.2.686 Jamie as [id number] [facility] [address] Branch 2019-06-02 2019-06-02 Orders Doctor KATIE 1.2.840.114 [id number] 00:00:00 00:00:00 Only Unassigned, EM 350.1.13.10 [place] [facility] 4.2.7.2.686 [id number] 009 2019-05-29 2019-05-29 [facility] Julian RUST 1.2.840.114 [id number] [facility] 13:30:00 23:59:00 Encounter Jesus Alberto Marie 350.1.13.10 ity of [place] 4.2.7.2.686 [facility] [phone] [facility] 8[address] 2019-05-29 2019-05-29 [facility] Julian RUST 1.2.840.114 [id number] 13:30:00 23:59:00 Encounter Jesus Alberto Marie 350.1.13.10 [place] 4.2.7.2.686 [place] [id number] 807 2019-05-29 2019-05-29 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, [facility] 1.2.840.114 [id number] [facility] 13:43:41 13:58:41 Visit Jesus Alberto Silverman 350.1.13.10 ity of [place] 4.2.7.2.686 [facility] [id number] [facility] 353 [address] 2019-05-29 2019-05-29 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, [facility] 1.2.840.114 [id number] 13:43:41 13:58:41 Visit [place] 350.1.13.10 [place] 4.2.7.2.686 [place] [phone] 353 2019-05-29 2019-05-29 [facility] Jesus Alberto Silverman RUST 1.2.840 .114 [id number] [facility] 13:15:00 13:29:00 Encounter Station, [facility] Heart [place] 350.1.13 .10 ity of [place] 4.2.7.2.686 [facility] [id number] [facility] [address] 2019-05-29 2019-05-29 [facility] 1.2.840.114 [id number] 13:15:00 13:29:00 Encounter Jesus Alberto Marie 350.1.13.10 [place] 4.2.7.2.686 [place] [id number] 051 2019-05-28 2019-05-28 [facility] 1.2.840.114 [id number] Univers 00:00:00 00:00:00 Surgery Jesus Alberto Do Health 350.1.13.10 it y of Surgical 4.2.7.2.686 Jamie as Specialti [phone] Or dical es 198 [facility] 2019-05-28 2019-05-28 Pony Julian RUST 1.2.840.114 [id number] Univers 00:00:00 00:00:00 Jesus Alberto Do Health 350.1.13.10 it y of Surgical 4.2.7.2.686 Jamie as Specialti [phone] Or dical es 198 [facility] 2019-05-28 2019-05-28 Prep For Julian RUST 1.2.840.114 [id number] 00:00:00 00:00:00 Surgery Jesus Alberto Do Health 350.1.13.10 Surgical 4.2.7.2.686 Specialti [phone] es [address] [place] [address] 2019-05-28 2019-05-28 Pony Julian RUST 1.2.840.114 [id number] 00:00:00 00:00:00 Jesus Alberto Do Health 350.1.13.10 Surgical 4.2.7.2.686 Specialti [phone] es [address] [place] [address] 2019-05-20 2019-05-20 Pony Julian RUST 1.2.840.114 [id number] Univers 00:00:00 00:00:00 Jesus Alberto Do Health 350.1.13.10 it y of Surgical 4.2.7.2.686 Jamie as Specialti [phone] Or dical es 198 [facility] 2019-05-20 2019-05-20 Pony Julian RUST 1.2.840.114 [id number] 00:00:00 00:00:00 Jesus Alberto Do Health 350.1.13.10 Surgical 4.2.7.2.686 Specialti [phone] es 198 [place] 2019-05-16 2019-05-16 Telephone KARL Silverman 1.2.840.114 [id number] Univers 00:00:00 00:00:00 Jesus Alberto Do Health 350.1.13.10 it y of Surgical 4.2.7.2.686 Jamie as Specialti [phone] Or dical es 198 [facility] 2019-05-16 2019-05-16 Orders Doctor KATIE 1.2.840.114 [id number] Univers 00:00:00 00:00:00 Only Unassigned, EM 350.1.13.10 [facility] [place] [facility] 4.2.7.2.686 Jamie as [phone] [address] 2019-05-16 2019-05-16 Telephone KARL Silverman 1.2.840.114 [id number] 00:00:00 00:00:00 Jesus Alberto Do Health 350.1.13.10 Surgical 4.2.7.2.686 Specialti [id number] es 198 [place] 2019-05-16 2019-05-16 Orders Doctor KATIE 1.2.840.114 [id number] 00:00:00 00:00:00 Only Unassigned, EM 350.1.13.10 [place] [facility] 4.2.7.2.686 [id number] [facility] 2019-05-09 2019-05-09 Office KARL Silverman [id number] [facility] 09:10:01 09:40:30 Visit Jesus Alberto Stearns 350.1.13.10 it y of Surgical 4.2.7.2.686 Jamie as Specialti [phone] Or dical es 198 [facility] 2019-05-09 2019-05-09 Office KARL Silverman [id number] 09:10:01 09:40:30 Visit Jesus Alberto Stearns 350.1.13.10 Surgical 4.2.7.2.686 Specialti [id number] es 198 [place] 2019-05-09 2019-05-09 Letter KARL Silverman [id number] Univers 00:00:00 00:00:00 (Out) Jesus Alberto Do Health 350.1.13.10 it y of Surgical 4.2.7.2.686 Jamie as Specialti [phone] Or dical es 198 [facility] 2019-04-29 2019-04-29 Transition Radha Dsouza 1.2.840.114 [id number] Univers 00:00:00 00:00:00 of Care Cheryl Do Peralta 350.1.13.10 i ty of [place] [id number] [facility] [address] 2019-04-24 2019-04-25 Emergency Daniel Cain [facility] 1.2.840 .114 [id number] Univers 22:38:36 15:10:00 Quinn Dugganton 350.1.13.10 ity of [place] [id number] [facility] [address] 2019-04-23 2019-04-23 Telephone [facility] 1.2.211.075 [id number] Univers 00:00:00 00:00:00 [facility] 350.1.13.10 it y of Surgical 4.2.7.2.686 Jamie as Specialti [phone] Or dical es 198 [facility] 2019-04-21 2019-04-21 [facility] 1.2.840.114 [id number] Univers 16:42:20 23:59:00 Encounter [facility] 350.1.13.10 ity of Surgical 4.2.7.2.686 Jamie as Specialti [phone] Or dical es 809 [facility] 2019-04-21 2019-04-21 Office [facility] 1.2.840.114 [id number] Univers 15:40:42 15:55:42 Visit Mike Scruggs Health 350.1.13.10 it y of Surgical 4.2.7.2.686 Jamie as Specialti [phone] Or dical es 198 [facility] Results Test Description Test Time Test Comments Results Result Comments Source BASIC METABOLIC PANEL (NA, K, CL, CO2, GLUCOSE, BUN, 2019-09 -18 11:46:00 CREATININE, [place]) Test Item Value Reference Range Interpretation Comme nts NA (test code = 9566398344) 142 mmol/L 135-145 K (test code = 0376899957) 4.3 mmol/L 3.5-5 CL (test code = 0409450002) 109 mmol/L 98-108 H CO2 TOTAL (test code = 5784343286) 28 mmol/L 23-31 AGAP (test code = 9645315027) 2-16 BUN (test code = 3213861605) 23 mg/dL 7-23 GLUCOSE (test code = 3011482707) 94 mg/dL 70-110 CREATININE (test code = 1.36 mg/dL 0.6-1.25 H 2005845807) CALCIUM (test code = 1194044547) 8.4 mg/dL 8.6-10.6 L eGFR Calculation (Non- mL/min/1.73m2 [place]) (test code = 8852872464) eGFR Calculation ( mL/min/1.73m2 [place]) (test code = 1388652285) RILEY (test code = RILEY) Association of Glomerular Filtration Rate (GFR) and Staging of Kidney Disease*+ + + +| GFR (mL/min/1.73 m2)?| With Kidney Damage?|?Without Kidney Damage+ +-- + +|?>90?|?Stage one?|? Normal?+ +- + +|?60-89?|?Stage two?|? Decreased GFR? + +-------- + ------+|?30-59?|?Stage three?|? Stage three? + +-------- + ------+|?15-29?|?Stage four? |? Stage four?+ +--- + +|?<15 (or dialysis)?|?Stage five? |? Stage five?+ +--- + +*Each stage assumes the associated GFR level has been in effect for at least three months.?Stages 1 to 5, with or without kidney disease, indicate chronic kidney disease.Notes: Determination of stages one and two (with eGFR >59mL/min/1.73 m2) requires estimation of kidney damage for at least three months as defined by structural or functional abnormalities of the kidney, manifested by either:Pathological abnormalities or Markers of kidney damage (including abnormalities in the composition of the blood or urine or abnormalities in imaging tests). Lab Interpretation (test code = Abnormal 07959-4) [facility] Test Item Value Reference Range Interpretation Comments MAGNESIUM (test code = 7447509890) 2.0 mg/dL 1.7-2.4 Lab Interpretation (test code = Normal 93502-1) [facility] WITH [id number] 11:19:00 Test Item Value Reference Range Interpretation Comments WBC (test code = See_Comment [Automated 6690-2) message] The sy stem which generated this result transmitted reference range : 4.20 - 10.70 10*3/?L. The reference range was not used to interpret this result as normal/abnormal . RBC (test code = See_Comment L [Automated 789-8) message] The sy stem which generated this result transmitted reference range : 4.26 - 5.52 10*6/?L. The reference range was not used to interpret this result as normal/abnormal . HGB (test code = 10.0 g/dL 12.2-16.4 L 718-7) HCT (test code = 31.5 % 38.4-49.3 L 4544-3) MCV (test code = 98.4 fL 81.7-95.6 H 787-2) MCH (test code = 31.3 pg 26.1-32.7 785-6) MCHC (test code = 31.7 g/dL 31.2-35 786-4) RDW-SD (test code = 50.6 fL 38.5-51.6 01829-7) RDW-CV (test code = 14.0 % 12.1-15.4 788-0) PLT (test code = See_Comment [Automated 777-3) message] The sy stem which generated this result transmitted reference range : 150 - 328 10*3/ ?L. The reference r yaneli was not used to interpret this result as normal/abnormal . MPV (test code = 11.1 fL 9.8-13 49112-7) NRBC/100 WBC (test See_Comment [Automat ed code = 5059794632) message] The system which generated this result transmitted reference range : 0.0 - 10.0 /100 WBCs. The refer ence range was not u sed to interpret th is result as normal/abnormal . NRBC x10^3 (test code <0.01 See_Comment [Auto mated = 3802301419) message] The s ystem which generated this result transmitted reference range : 10*3/?L. The reference range was not used to interpret this result as normal/abnormal . GRAN MAT (NEUT) % 65.5 % (test code = 770-8) IMM GRAN % (test code 0.50 % = 3833926127) LYMPH % (test code = 20.9 % 736-9) MONO % (test code = 11.0 % 5905-5) EOS % (test code = 1.8 % 713-8) BASO % (test code = 0.3 % 706-2) GRAN MAT x10^3(ANC) 5.70 10*3/uL 1.99-6.95 (test code = 1022771086) IMM GRAN x10^3 (test 0.04 10*3/uL 0-0.06 code = 9647327914) LYMPH x10^3 (test code 1.82 10*3/uL 1.09-3.23 = 731-0) MONO x10^3 (test code 0.96 10*3/uL 0.36-1.02 = 742-7) EOS x10^3 (test code = 0.16 10*3/uL 0.06-0.53 711-2) BASO x10^3 (test code 0.03 10*3/uL 0.01-0.09 = 704-7) Lab Interpretation Abnormal (test code = 77327-6) [facility] METABOLIC PANEL (NA, K, CL, CO2, GLUCOSE, BUN, CREATININE, CA)2019-06-03 12:53:00 Test Item Value Reference Range Interpretation Comments NA (test code = 139 mmol/L 135-145 2582117513) K (test code = 4.4 mmol/L 3.5-5 2930322005) CL (test code = 106 mmol/L 98-108 1947713484) CO2 TOTAL (test code = 25 mmol/L 23-31 7002993650) AGAP (test code = 2-16 5568015310) BUN (test code = 22 mg/dL 7-23 7139756305) GLUCOSE (test code = 160 mg/dL 70-110 H 7636967899) CREATININE (test code = 1.55 mg/dL 0.6-1.25 H 4739209549) CALCIUM (test code = 8.8 mg/dL 8.6-10.6 1134644164) eGFR Calculation mL/min/1.73m2 (Non-) (test code = 1074332563) eGFR Calculation mL/min/1.73m2 () (test code = 1472646186) RILEY (test code = RILEY) Association of Glomerular Filtration Rate (GFR) and Staging of Kidney Disease*+ + + +| GFR (mL/min/1.73 m2)?| With Kidney Damage?|?Without Kidney Damage+ --------+ --------+ +|?>90?|?S tage one?|? Normal?+ ---------+ ---------+ +|?60-89? |?Stage two?|? Decreased GFR? + --+ --+ ------+|?30-59?|?Stage three?|? Stage three? + --+ --+ ------+|?15-29?|?Stage four? |? Stage four?+ -------+ -------+ +|?<15 (or dialysis)?|?Stage five? |? Stage five?+ -------+ -------+ +*Each stage assumes the associated GFR level has been in effect for at least three months.?Stages 1 to 5, with or without kidney disease, indicate chronic kidney disease.Notes: Determination of stages one and two (with eGFR >59mL/min/1.73 m2) requires estimation of kidney damage for at least three months as defined by structural or functional abnormalities of the kidney, manifested by either:Pathological abnormalities or Markers of kidney damage (including abnormalities in the composition of the blood or urine or abnormalities in imaging tests). Lab Interpretation Abnormal (test code = 69786-0) [facility] WITH [id number] 11:55:00 Test Item Value Reference Range Interpretation Comments WBC (test code = See_Comment H [Automated 9531-2) message] The system which generated this result transmit ben reference range : 4.20 - 10.70 10*3/?L. The reference range was not used to interpret this result as normal/abnormal . RBC (test code = See_Comment L [Automated 889-8) message] The system which generated this result transmit ben reference range : 4.26 - 5.52 10*6/?L. The reference range was not used to interpret this result as normal/abnormal . HGB (test code = 10.5 g/dL 12.2-16.4 L 718-7) HCT (test code = 31.7 % 38.4-49.3 L 4544-3) MCV (test code = 94.9 fL 81.7-95.6 787-2) MCH (test code = 31.4 pg 26.1-32.7 785-6) MCHC (test code = 33.1 g/dL 31.2-35 786-4) RDW-SD (test code = 46.7 fL 38.5-51.6 23171-9) RDW-CV (test code = 13.4 % 12.1-15.4 788-0) PLT (test code = See_Comment [Automated 777-3) message] The system which generated this result transmit ben reference range : 150 - 328 10*3/ ?L. The reference range was not u sed to interpret th is result as normal/abnormal . MPV (test code = 11.0 fL 9.8-13 76602-8) NRBC/100 WBC (test See_Comment [Automat ed code = 5662317052) message] The system which generated this result transmit ben reference range : 0.0 - 10.0 /100 WBCs. The reference range was not used to interpret this result as normal/abnormal . NRBC x10^3 (test code <0.01 See_Comment [Auto mated = 1242997825) message] The system which generated this result transmit ben reference range : 10*3/?L. The reference range was not used to interpret this result as normal/abnormal . GRAN MAT (NEUT) % 84.1 % (test code = 770-8) IMM GRAN % (test code 0.50 % = 8432807216) LYMPH % (test code = 8.6 % 736-9) MONO % (test code = 6.7 % 5905-5) EOS % (test code = 0.0 % 713-8) BASO % (test code = 0.1 % 706-2) GRAN MAT x10^3(ANC) 10.34 10*3/uL 1.99-6.95 H (test code = 9059667338) IMM GRAN x10^3 (test 0.06 10*3/uL 0-0.06 code = 7377679106) LYMPH x10^3 (test code 1.06 10*3/uL 1.09-3.23 L = 731-0) MONO x10^3 (test code 0.82 10*3/uL 0.36-1.02 = 742-7) EOS x10^3 (test code = <0.03 0.06-0.53 L 711-2) BASO x10^3 (test code <0.03 0.01-0.09 = 704-7) Lab Interpretation Abnormal (test code = 80166-2) [facility] views [id number] 16:40:17Changes of total knee arthroplasty * * * * * * * * ORIGINAL REPORT * * * * * * * *EXAM: Right knee 2views HISTORY: total knee Maintain knee immobilizer/brace/splint/cast; TECHNIQUE:AP and lateral views of the right knee are obtained usingportable technique. COMPARISON: 04/21/2019 FINDINGS:Since the previous examination changes of total knee arthroplastyare seen. The prosthesis appears to be in anatomic alignment. Superficialsurgical skin vy and a drainage catheter are identified. [facility], Radiant Results Inft User - 06/02/2019 11:40 AM CDT* * * * * * * * ORIGINAL REPORT * * * * * * * *EXAM: Right knee 2 viewsHISTORY: total knee Maintain knee immobilizer/brace/splint/cast;TECHNIQUE:AP and lateral views of the right knee are obtained usingportable technique.COMPARISON: 04/21/2019FINDINGS:Since the pr evious examination changes of total knee arthroplastyare seen. The prosthesis appears to be in anatomic alignment. Superficialsurgical skin vy and a drainage catheter are identified.IMPRESSIONChanges of total knee arthroplasty [facility] and Screen - ONCE [id number] 13:01:50 Test Item Value Reference Range Interpretation Comments ABO & RH (test code O Positive Performe d at RUST = 20) Laboratory Serv [facility] [address] [place] [id number] Free: [phone] A No. [id number] IAT (test code = Negative Performed a t RUST 1185) Laboratory Serv [facility] [address] [place] [address]Ryxi Free: [phone] A No. [id number] [facility] 1 [id number] 19:39:47HISTORY: Preop. FINDINGS: Comparison is made with portable study of 04/24/2019. AP view ofthe chest showed normal appearance of the cardiomediastinal silhouette. Noacute pneumonia, pleural effusion, pulmonary congestion detected. Old,healed fracture noted in the middle third of the left clavicle. CONCLUSIONS: No acute cardiopulmonary disease. [facility], Radiant Results Inft User - 05/29/2019 2:39 PM CDTHISTORY: Preop.FINDINGS: Comparison is made with portable study of 04/24/2019. AP view ofthe chest showed normal appearance of the cardiomediastinal silhouette. Noacute pneumonia, pleural effusion, pulmonary congestion detected. Old,healed fracture noted in the middle third of the left clavicle.CONCLUSIONS: No acute cardiopulmonary disease.[facility], [id number] 16:20:00 Test Item Value Reference Range Interpretation Comments VIT B12 (test code = 489 pg/mL [id number]) RILEY (test code = RILEY) Biotin has been reported to cause a positive bias, interpret results relative to patient's use of biotin. Lab Interpretation (test Normal code = 24670-6) [facility] [facility] 16:20:00 Test Item Value Reference Range Interpretation Comments FOLATE SER (test code = 7.4 ng/mL 3-20 Biot in has been [id number]) reported to cau se a positive bias, interpret resul ts relative to patient's use o f biotin. Lab Interpretation (test Normal code = 96329-7) [facility] [id number] 13:16:00 Test Item Value Reference Range Interpretation Comments NT-proBNP (test code 987 pg/mL See_Comment H [Autom ated = 9023374886) message] The system which generated this result transmitted reference range : <=450. The reference range was not used to interpret this result as normal/abnormal . RILEY (test code = RILEY) Biotin has been reported to cause a negative bias, interpret results relative to patient's use of biotin. Lab Interpretation Abnormal (test code = 67478-6) [facility]udaIRO [id number] 12:20:00 Test Item Value Reference Range Interpretation Comments IRON (test code = 2860049522) 27 ug/dL 50-160 L TIBC (test code = 7644876786) 205 ug/dL 250-410 L % FE SAT (test code = 4133603688) 13 % 20-50 L Lab Interpretation (test code = Abnormal 80998-2) [id number] 12:[facility]00 Test Item Value Reference Range Interpretation Comments TROPONIN I (test <0.012 See_Comment [Automated code = 5207622081) message] The system which generated this result transmitted reference range : <=0.034 ng/mL. The reference range was not used to interpr et this result as normal/abnormal . RILEY (test code = Equal or Less than RILEY) 0.034 ng/ml---Normal?Not e: Cardiac troponin begins to rise 3-4 hours after the onset of ischemia. Repeat in 4-6 hours if the sample was drawn within 3-4 hours of the onset of the symptom and found normal. Between 0.035 and 0.120 ng/mL--- Borderline. Questionable myocardial injury or necrosis?Note: Serial measurement may be necessary to confirm or exclude the diagnosis of myocardial injury or necrosis; Clinical correlation (symptoms, EKGs, imaging studies, and others) required; Repeat in 4-6 hours if clinically indicated.? Equal or Higher than 0.121 ng/mL---Abnormal. Myocardial Injury or Necrosis Likely? Biotin has been reported to cause a negative bias, interpret results relative to patient's use of biotin.? ? Lab Interpretation Normal (test code = 70510-5) [facility] METABOLIC PANEL (NA, K, CL, CO2, GLUCOSE, BUN, CREATININE, CA)2019-04-25 12:09:00 Test Item Value Reference Range Interpretation Comments NA (test code = 138 mmol/L 135-145 9827810983) K (test code = 4.5 mmol/L 3.5-5 4161804626) CL (test code = 106 mmol/L 98-108 1287393116) CO2 TOTAL (test code = 25 mmol/L 23-31 2976864928) AGAP (test code = 2-16 0051834827) BUN (test code = 23 mg/dL 7-23 8691671522) GLUCOSE (test code = 102 mg/dL 70-110 4269805103) CREATININE (test code 1.15 mg/dL 0.6-1.25 = 0648904143) CALCIUM (test code = 8.8 mg/dL 8.6-10.6 2158635676) eGFR Calculation mL/min/1.73m2 (Non-) (test code = 1727718966) eGFR Calculation mL/min/1.73m2 () (test code = 1459169201) RILEY (test code = RILEY) Association of Glomerular Filtration Rate (GFR) and Staging of Kidney Disease*+ ---------+ --------+ +| GFR (mL/min/1.73 m2)?| With Kidney Damage?|?Without Kidney Damage+ -------+ ------+ ---------+|?>90?|?Stage one?|? Normal?+ --------+ -------+ +|?60-89?|?St age two?|? Decreased GFR? + -+ + ---+|?30-59?|?Stage three?|? Stage three? + -+ + ---+|?15-29?|?Stage four? |? Stage four?+ ------+ -----+ --------+|?<15 (or dialysis)?|?Stage five? |? Stage five?+ ------+ -----+ --------+*Each stage assumes the associated GFR level has been in effect for at least three months.?Stages 1 to 5, with or without kidney disease, indicate chronic kidney disease.Notes: Determination of stages one and two (with eGFR >59mL/min/1.73 m2) requires estimation of kidney damage for at least three months as defined by structural or functional abnormalities of the kidney, manifested by either:Pathological abnormalities or Markers of kidney damage (including abnormalities in the composition of the blood or urine or abnormalities in imaging tests). [facility]udaFERRITIN [id number] 09:11:00 Test Item Value Reference Range Interpretation Comments FERRITIN (test code = 251.0 ng/mL 1474977430) RILEY (test code = RILEY) Biotin has been reported to cause a negative bias, interpret results relative to patient's use of biotin. Lab Interpretation (test Normal code = 17666-3) [facility]udaTHYROID STIMULATING [id number] 09:07:00 Test Item Value Reference Range Interpretation Comments TSH (test code = See_Comment [Automated message] 4654484989) The system Jiberishic h generated this result transmitted ref erence range: 0.45 - 4 .70 mIU/L. The refe rence range was not u sed to interpret this result as normal/abnor mal. Lab Interpretation (test Normal code = 57151-0) [facility] BudaGLYCOSYLATED HEMOGLOBIN (A1C)2019-04-25 08:52:00 Test Item Value Reference Interpretation Comments Range HGB A1C (test code = See_Comment [Autom ated 4548-4) message] The system which generated this result transmitted reference range : 4.0 - 6.0 % NGSP. The reference range was not used to interpret this result as normal/abnormal . RILEY (test code = %A1C (NGSP) RILEY) Interpretation (ADA)4.8-5.6? Normal or (Non-Diabetic Range)5.7-6.4? Increased Risk (Pre-Diabetic)>6.5?D iabetes Indicated Lab Interpretation Normal (test code = 05602-3) [facility]udaMAGNESIUM2019-08-09 08:35:00 Test Item Value Reference Range Interpretation Comments MAGNESIUM (test code = 0028119698) 1.8 mg/dL 1.7-2.4 Lab Interpretation (test code = Normal 29380-2) [facility]udaCREATINE [id number] 08:27:00 Test Item Value Reference Range Interpretation Comments CK (test code = 3560761706) 264 U/L 33-194 H Lab Interpretation (test code = Abnormal 95888-5) [facility]udaADC,CLC OR LCC ONLY - INFLUENZA A & B DIRECT [id number] 05:58:00 Test Item Value Reference Range Interpretation Comments Lab Interpretation (test code = Normal 07470-8) [facility]udaURINALYSIS2019-08-09 05:44:00 Test Item Value Reference Range Interpretation Comments APPEARANCE (test code = Clear Clear 5731156727) COLOR (test code = Yellow Yellow 0996385729) PH (test code = 4.8-8.0 4924455681) SP GRAVITY (test code = 1.003-1.030 8266070211) GLU U QUAL (test code = Negative Negative 8070419304) BLOOD (test code = Negative Negative 8823356309) KETONES (test code = Negative Negative 2669555863) PROTEIN (test code = Negative Negative 2887-8) UROBILIN (test code = 1.0 mg/dL See_Comment [Auto mated message] 2929665658) The system Jobster generated this result transmit ben reference range : 0-1.0 mg/dL. Th e reference range was not used to interpret this result as normal/abnormal . BILIRUBIN (test code = Negative Negative 7913187994) NITRITE (test code = Negative Negative 8647636754) LEUK WINDY (test code = Negative Negative 4547730091) RBC/HPF (test code = See_Comment [Autom ated message] 2376745579) The system Jobster generated this result transmit ben reference range : 0 - 3 HPF. The refe rence range was not u sed to interpret th is result as normal/abnormal . WBC/HPF (test code = See_Comment [Autom ated message] 8467407518) The system Jobster generated this result transmit ben reference range : 0 - 5 HPF. The refe rence range was not u sed to interpret th is result as normal/abnormal . BACTERIA (test code = Few Negative A 4668395753) MUCOUS (test code = Slight Negative LPF A 4489837384) SQ EPITH (test code = HPF 8451305987) Lab Interpretation (test Abnormal code = 27426-4) [facility] BudaCT HEAD WO [id number] 05:01:15 No acute intracranial abnormality. No cervical fracture or subluxation. Degenerative changes of thecervical spine. Mark Forbes MD., have reviewed this study and agree with theabove report.EXAM: CT HEAD WO CONTRAST, CT CERVICAL SPINE WO CONTRAST HISTORY: Head trauma, headache COMPARISON: None TECHNIQUE: CT imaging of the head and cervical spine was obtained withoutIV contrast. Coronal and sagittal reformats were constructed. FINDINGS: HEAD: The ventricles and cerebral sulci are normal in caliber and configuration.No hydrocephalus, midline shift, or significant mass effect is detected.The basal cisterns are intact. No acute intracranial hemorrhage or pathological extra- axial fluidcollection is demonstrated. No parenchymal attenuation abnormality isidentified. The carney-white matter differentiation is preserved. The mastoid air cells and paranasal air sinuses are clear. The calvariumand remaining skull base are unremarkable. CERVICAL SPINE: There is straightening of the cervical lordosis. The vertebral bodies arenormal height and alignment. The facet joints are aligned. Thecraniocervical junction is intact. 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 Moderate changes of chronic degenerative disc disease noted at C3-C4,C4-C5, C5-C6, slightly less severe at C6-C7 and C7- T1 levels. Uncovertebralosteophytes are seen encroaching into the neural foramina on the left sideat C3-C4, bilaterally at C4-C5, C5-C6 and the right neural foramina atC6-C7.Facet arthritis notedat multiple levels, more on both sides at C2-C3, leftside at C3-C4, bilateral C4-C5 and C7-T1 levels.. The prevertebral soft tissues are unremarkable. [facility], Radiant Results Inft User - 04/25/2019 12:03AM CDTEXAM: CT HEAD WO CONTRAST, CT CERVICAL SPINE WO CONTRASTHISTORY: Head trauma, headache COMPARISON: NoneTECHNIQUE: CT imaging of the head and cervical spine was obtained withoutIV contrast. Coronal and sagittal reformats were constructed.FINDINGS:HEAD:The ventricles and cerebral sulci are normal in caliber and configuration.No hydrocephalus, midline shift, or significant mass effect is detected.The basal cisterns are intact.No acute intracranial hemorrhage or pathological extra-axial fluidcollection is demonstrated. No parenchymal attenuation abnormality isidentified. The carney- white matter differentiation is preserved.The mastoid air cells and paranasal air sinuses are clear. The calvariumandremaining skull base are unremarkable.CERVICAL SPINE:There is straightening of the cervical lordosis. The vertebral bodies arenormal height and alignment. The facet joints are aligned. Thecraniocervical junction is intact. 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 Uncovertebralosteophytes are seen encroaching into the neural foramina on the left sideat C3-C4, bilaterally at C4-C5, C5-C6 and the right neural foramina atC6-C7.Facet arthritis noted at multiple levels, more on both sides at C2-C3, leftside at C3-C4, bilateral C4-C5 and C7-T1 levels..The prevertebral soft tissues are unremarkable.IMPRESSIONNo acute intracranial abnormality.No cervical fracture or subluxation.Degenerative changes of the cervical spine.Teresa Forbes MD., have reviewed this study and agree with theabove report.[facility]udaCT CERVICAL SPINE WO [id number] 05:01:15 No acute intracranial abnormality. No cervical fracture or subluxation. Degenerative changes of thecervical spine. Mark Forbes MD., have reviewed this study and agree with theabove report.EXAM: CT HEAD WO CONTRAST, CT CERVICAL SPINE WO CONTRAST HISTORY: Head trauma, headache COMPARISON: None TECHNIQUE: CT imaging of the head and cervical spine was obtained withoutIV contrast. Coronal and sagittal reformats were constructed. FINDINGS: HEAD: The ventricles and cerebral sulci are normal in caliber and configuration.No hydrocephalus, midline shift, or significant mass effect is detected.The basal cisterns are intact. No acute intracranial hemorrhage or pathological extra- axial fluidcollection is demonstrated. No parenchymal attenuation abnormality isidentified. The carney-white matter differentiation is preserved. The mastoid air cells and paranasal air sinuses are clear. The calvariumand remaining skull base are unremarkable. CERVICAL SPINE: There is straightening of the cervical lordosis. The vertebral bodies arenormal height and alignment. The facet joints are aligned. Thecraniocervical junction is intact. 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 Moderate changes of chronic degenerative disc disease noted at C3-C4,C4-C5, C5-C6, slightly less severe at C6-C7 and C7- T1 levels. Uncovertebralosteophytes are seen encroaching into the neural foramina on the left sideat C3-C4, bilaterally at C4-C5, C5-C6 and the right neural foramina atC6-C7.Facet arthritis notedat multiple levels, more on both sides at C2-C3, leftside at C3-C4, bilateral C4-C5 and C7-T1 levels.. The prevertebral soft tissues are unremarkable. [facility], Radiant Results Inft User - 04/25/2019 12:03AM CDTEXAM: CT HEAD WO CONTRAST, CT CERVICAL SPINE WO CONTRASTHISTORY: Head trauma, headache COMPARISON: NoneTECHNIQUE: CT imaging of the head and cervical spine was obtained withoutIV contrast. Coronal and sagittal reformats were constructed.FINDINGS:HEAD:The ventricles and cerebral sulci are normal in caliber and configuration.No hydrocephalus, midline shift, or significant mass effect is detected.The basal cisterns are intact.No acute intracranial hemorrhage or pathological extra-axial fluidcollection is demonstrated. No parenchymal attenuation abnormality isidentified. The carney- white matter differentiation is preserved.The mastoid air cells and paranasal air sinuses are clear. The calvariumandremaining skull base are unremarkable.CERVICAL SPINE:There is straightening of the cervical lordosis. The vertebral bodies arenormal height and alignment. The facet joints are aligned. Thecraniocervical junction is intact. 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 Uncovertebralosteophytes are seen encroaching into the neural foramina on the left sideat C3-C4, bilaterally at C4-C5, C5-C6 and the right neural foramina atC6-C7.Facet arthritis noted at multiple levels, more on both sides at C2-C3, leftside at C3-C4, bilateral C4-C5 and C7-T1 levels..The prevertebral soft tissues are unremarkable.IMPRESSIONNo acute intracranial abnormality.No cervical fracture or subluxation.Degenerative changes of the cervical spine.ITeresa MD., have reviewed this study and agree with theabove report.[facility] BudaNIALLPRISMA [facility]ICHL[facility]ITALHAI [id number] 04:57:00 Test Item Value Reference Range Interpretation Comments TROPONIN I (test <0.012 See_Comment [Automated code = 7905691298) message] The system which generated this result transmitted reference range : <=0.034 ng/mL. The reference range was not used to interpr et this result as normal/abnormal . RILEY (test code = Equal or Less than RILEY) 0.034 ng/ml---Normal?Not e: Cardiac troponin begins to rise 3-4 hours after the onset of ischemia. Repeat in 4-6 hours if the sample was drawn within 3-4 hours of the onset of the symptom and found normal. Between 0.035 and 0.120 ng/mL--- Borderline. Questionable myocardial injury or necrosis?Note: Serial measurement may be necessary to confirm or exclude the diagnosis of myocardial injury or necrosis; Clinical correlation (symptoms, EKGs, imaging studies, and others) required; Repeat in 4-6 hours if clinically indicated.? Equal or Higher than 0.121 ng/mL---Abnormal. Myocardial Injury or Necrosis Likely? Biotin has been reported to cause a negative bias, interpret results relative to patient's use of biotin.? ? Lab Interpretation Normal (test code = 22815-8) [facility] BudaXR CHEST 1 [id number] 04:56:48 Mild cardiomegaly. Mark Forbes MD., have reviewed this study and agree with theabove report.EXAM: XR CHEST 1 VW HISTORY: chest pain COMPARISON: X-ray to 10/06/2016 FINDINGS: The lungs are underinflated but clear. No focal consolidation, pleuraleffusion or pneumothorax is seen. The cardiac silhouette is enlarged. No acute bony abnormality. [facility], Radiant Results Inft User - 04/24/2019 11:58PM CDTEXAM: XR CHEST 1 VWHISTORY: chest pain COMPARISON: X-ray to 10/06/2016FINDINGS:The lungs are underinflated but clear. No focal consolidation, pleuraleffusion or pneumothorax is seen. The cardiac silhouette is enlarged.No acute bony abnormality.IMPRESSIONMild cardiomegaly.Teresa Forbes MD., have reviewed this study and agree with theabove report.[facility] BudaCOMP. METABOLIC PANEL (71061)2019-04-25 04:36:00 Test Item Value Reference Range Interpretation Comments NA (test code = 139 mmol/L 135-145 4406295957) K (test code = 3.4 mmol/L 3.5-5 L 9863849788) CL (test code = 104 mmol/L 98-108 6778507223) CO2 TOTAL (test code = 26 mmol/L 23-31 8238069279) AGAP (test code = 2-16 4028552424) BUN (test code = 24 mg/dL 7-23 H 6203011268) GLUCOSE (test code = 100 mg/dL 70-110 4011922039) CREATININE (test code = 1.17 mg/dL 0.6-1.25 2944878708) TOTAL BILI (test code = 0.7 mg/dL 0.1-1.1 7579710366) CALCIUM (test code = 8.3 mg/dL 8.6-10.6 L 4865171412) T PROTEIN (test code = 7.0 g/dL 6.3-8.2 7766861847) ALBUMIN (test code = 3.6 g/dL 3.5-5 5098077086) ALK PHOS (test code = 143 U/L 34-122 H 6490807162) ALT(SGPT) (test code = 49 U/L 9-51 2849871408) AST(SGOT) (test code = 92 U/L 13-40 H 0790849623) eGFR Calculation mL/min/1.73m2 (Non-) (test code = 8410738612) eGFR Calculation mL/min/1.73m2 () (test code = 6912140806) RILEY (test code = RILEY) Association of Glomerular Filtration Rate (GFR) and Staging of Kidney Disease*+ + + +| GFR (mL/min/1.73 m2)?| With Kidney Damage?|?Without Kidney Damage+ --------+ --------+ +|?>90?|?S stevene one?|? Normal?+ ---------+ ---------+ +|?60-89? |?Stage two?|? Decreased GFR? + --+ --+ ------+|?30-59?|?Stage three?|? Stage three? + --+ --+ ------+|?15-29?|?Stage four? |? Stage four?+ -------+ -------+ +|?<15 (or dialysis)?|?Stage five? |? Stage five?+ -------+ -------+ +*Each stage assumes the associated GFR level has been in effect for at least three months.?Stages 1 to 5, with or without kidney disease, indicate chronic kidney disease.Notes: Determination of stages one and two (with eGFR >59mL/min/1.73 m2) requires estimation of kidney damage for at least three months as defined by structural or functional abnormalities of the kidney, manifested by either:Pathological abnormalities or Markers of kidney damage (including abnormalities in the composition of the blood or urine or abnormalities in imaging tests). Lab Interpretation Abnormal (test code = 03038-9) [facility] BudaLIPASE, [id number] 04:36:00 Test Item Value Reference Range Interpretation Comments LIPASE (test code = 4004132553) 83 U/L 0-220 Lab Interpretation (test code = Normal 63817-5) [facility] BudaaPTT2019-08-09 04:12:00 Test Item Value Reference Range Interpretation Comments APTT Patient (test See_Comment [Automat ed code = 3173-2) message] The system which generated this result transmitted reference range : 23 - 38 Seconds . The reference range was not used to interpr et this result as normal/abnormal . RILEY (test code = RILEY) The [facility]UST patient population mean normal value for aPTT is 30 seconds. Lab Interpretation Normal (test code = 72444-8) [facility] BudaPROTHROMBIN TIME / [id number] 04:10:00 Test Item Value Reference Range Interpretation Comments PROTIME PATIENT (test See_Comment [Auto mated message] code = 5964-2) The system wh ich generated this result transmitted ref erence range: 12.0 - 1 4.7 Seconds. The re ference range was not u sed to interpret this result as normal/abnor mal. INR (test code = 6301-6) Nor mal INR <1.1; Warfarin Therap eutic range 2.0 to 3. 0 or 2.5 to 3.5, dep ending upon the indica tions. Lab Interpretation (test Normal code = 60996-4) [facility] BudaCBC WITH [id number] 04:03:00 Test Item Value Reference Range Interpretation Comments WBC (test code = See_Comment [Automated 8390-2) message] The sy stem which generated this result transmitted reference range : 4.20 - 10.70 10*3/?L. The reference range was not used to interpret this result as normal/abnormal . RBC (test code = See_Comment L [Automated 739-8) message] The sy stem which generated this result transmitted reference range : 4.26 - 5.52 10*6/?L. The reference range was not used to interpret this result as normal/abnormal . HGB (test code = 11.1 g/dL 12.2-16.4 L 718-7) HCT (test code = 32.4 % 38.4-49.3 L 4544-3) MCV (test code = 95.0 fL 81.7-95.6 787-2) MCH (test code = 32.6 pg 26.1-32.7 785-6) MCHC (test code = 34.3 g/dL 31.2-35 786-4) RDW-SD (test code = 46.3 fL 38.5-51.6 98959-7) RDW-CV (test code = 13.3 % 12.1-15.4 788-0) PLT (test code = See_Comment [Automated 777-3) message] The sy stem which generated this result transmitted reference range : 150 - 328 10*3/ ?L. The reference r yaneli was not used to interpret this result as normal/abnormal . MPV (test code = 11.0 fL 9.8-13 85564-6) NRBC/100 WBC (test See_Comment [Automat ed code = 0038230489) message] The system which generated this result transmitted reference range : 0.0 - 10.0 /100 WBCs. The refer ence range was not u sed to interpret th is result as normal/abnormal . NRBC x10^3 (test code <0.01 See_Comment [Auto mated = 5101884374) message] The s ystem which generated this result transmitted reference range : 10*3/?L. The reference range was not used to interpret this result as normal/abnormal . GRAN MAT (NEUT) % 72.2 % (test code = 770-8) IMM GRAN % (test code 0.20 % = 6890114825) LYMPH % (test code = 14.8 % 736-9) MONO % (test code = 10.2 % 5905-5) EOS % (test code = 2.4 % 713-8) BASO % (test code = 0.2 % 706-2) GRAN MAT x10^3(ANC) 5.82 10*3/uL 1.99-6.95 (test code = 8719901603) IMM GRAN x10^3 (test <0.03 0-0.06 code = 6472685569) LYMPH x10^3 (test code 1.19 10*3/uL 1.09-3.23 = 731-0) MONO x10^3 (test code 0.82 10*3/uL 0.36-1.02 = 742-7) EOS x10^3 (test code = 0.19 10*3/uL 0.06-0.53 711-2) BASO x10^3 (test code <0.03 0.01-0.09 = 704-7) Lab Interpretation Abnormal (test code = 50287-8) [facility]"
--- NOTE | 2022-06-16 10:33 | RAD REPORT ---
EXAM DESCRIPTION: [place] Single View06/16/2022 10:15 am CLINICAL HISTORY: Weakness COMPARISON: 2013 FINDINGS: The left lung is hazy Right lung appears clear of acute infiltrate. Heart is probably upper limits normal size IMPRESSION: Left lung is hazy probably pneumonia. There may be a small pleural effusion present. Thi s should be followed until it is clear to help exclude a post obstructive process/underlying mass
--- NOTE | 2022-06-16 10:36 | EDPHYS ---
Physician Documentation [facility] Name: Tristian Scott Age: 87 yrs Sex: Male : 1935 Arrival Date: 06/16/2022 Time: 09:56 Bed 7 Private MD: ED Physician Thony Villegas HPI: 06/16 17:47 This 87 yrs old Unknown Male presents to ER via EMS with complaints of Shortness Of kdr Breath. 17:45 Patient was sent from her doctor's office today. Patient was diagnosed with pneumonia kdr and COVID on Sunday and admitted at [facility]. Patient was then discharged on Sunday and since then has become increasingly short of breath.. Onset: The symptoms/episode began/occurred gradually, 5 day(s) ago. Severity of symptoms: At their worst the symptoms were mild moderate just prior to arrival, in the emergency department the symptoms are unchanged. The patient has experienced similar episodes in the past, a few times. The patient has been recently seen by a physician: the patient's primary care provider. Historical: - Allergies: 10:15 No Known Allergies; db - Home Meds: 10:15 aspirin Oral [Active]; db - PMHx: 10:15 CAD; Chronic pain; High Cholesterol; Hypertension; db 15:39 Atrial fibrillation; Chronic systolic heart failure; db - Immunization history:: Adult Immunizations unknown, Client reports receiving the 2nd dose of the Covid vaccine, Flu vaccine is up to date. - Social history:: Smoking status: Patient denies any tobacco usage or history of. Patient/guardian denies using alcohol, street drugs, IV drugs, tobacco products. ROS: 17:45 Constitutional: Negative for fever, chills, and weight loss, Eyes: Negative for injury, kdr pain, redness, and discharge, ENT: Negative for injury, pain, and discharge, Neck: Negative for injury, pain, and swelling, Cardiovascular: Negative for chest pain, palpitations, and edema, Abdomen/GI: Negative for abdominal pain, nausea, vomiting, diarrhea, and constipation, Back: Negative for injury and pain, : Negative for injury, bleeding, discharge, and swelling, MS/Extremity: Negative for injury and deformity, Skin: Negative for injury, rash, and discoloration, Neuro: Negative for headache, weakness, numbness, tingling, and seizure activity. Psych: Negative for depression, anxiety, suicide ideation, homicidal ideation, and hallucinations, Allergy/Immunology: Negative for hives, rash, and allergies, Endocrine: Negative for neck swelling, polydipsia, polyuria, polyphagia, and marked weight changes, Hematologic/Lymphatic: Negative for swollen nodes, abnormal bleeding, and unusual bruising. 17:45 Respiratory: Positive for cough, dyspnea on exertion, shortness of breath, wheezing. Exam: 17:45 Constitutional: This is a well developed, well nourished patient who is awake, alert, kdr and in no acute distress. Head/Face: Normocephalic, atraumatic. Eyes: Pupils equal round and reactive to light, extra-ocular motions intact. Lids and lashes normal. Conjunctiva and sclera are non-icteric and not injected. Cornea within normal limits. Periorbital areas with no swelling, redness, or edema. Neck: Trachea midline, no thyromegaly or masses palpated, and no cervical lymphadenopathy. Supple, full range of motion without nuchal rigidity, or vertebral point tenderness. No Meningismus. Chest/axilla: Normal chest wall appearance and motion. Nontender with no deformity. No lesions are appreciated. Cardiovascular: Regular rate and rhythm with a normal S1 and S2. No gallops, murmurs, or rubs. Normal PMI, no JVD. No pulse deficits. Abdomen/GI: Soft, non-tender, with normal bowel sounds. No distension or tympany. No guarding or rebound. No evidence of tenderness throughout. Back: No spinal tenderness. No costovertebral tenderness. Full range of motion. Skin: Warm, dry with normal turgor. Normal color with no rashes, no lesions, and no evidence of cellulitis. MS/ Extremity: Pulses equal, no cyanosis. Neurovascular intact. Full, normal range of motion. Neuro: Awake and alert, GCS 15, oriented to person, place, time, and situation. Cranial nerves II-XII grossly intact. Motor strength 5/5 in all extremities. Sensory grossly intact. Cerebellar exam normal. Normal gait. Psych: Awake, alert, with orientation to person, place and time. Behavior, mood, and affect are within normal limits. 17:45 Respiratory: mild respiratory distress is noted, Respirations: labored breathing, that is mild, Breath sounds: rales, that are mild, are scattered, decreased breath sounds, are scattered. Vital Signs: 10:10 BP 128 / 66; Pulse 92; Resp 20; Temp 98.7; Pulse Ox 93% on R/A; Weight 94.35 kg; Height db 5 ft. 5 in. (165.10 cm); Pain 6/10; 10:27 BP 139 / 69; Pulse 89; Resp 20; Pulse Ox 95% ; jl7 11:00 BP 121 / 62; Pulse 80; Resp 15; Pulse Ox 100% on Mask: Nebulizer Mask; db 11:00 BP 121 / 62; Pulse 80; Resp 15; Pulse Ox 100% on Nebulizer Mask; db 11:30 BP 122 / 53; Pulse 74; Resp 19; Pulse Ox 95% on 2 lpm NC; db 12:00 BP 127 / 56; Pulse 112; Resp 18; Pulse Ox 93% on 2 lpm NC; db 14:51 Pulse 171; aa5 14:52 BP 109 / 87; Pulse 150; Resp 20 S; Pulse Ox 100% on 2 lpm NC; aa5 15:03 BP 127 / 67; Pulse 145; Resp 24; Pulse Ox 98% on 3 lpm NC; db 15:20 BP 127 / 75; Pulse 149; Resp 22; Pulse Ox 96% ; db 15:27 Pulse 85; Resp 19; Pulse Ox 95% on 3 lpm NC; db 15:40 BP 124 / 69; Pulse 84; Resp 18; Pulse Ox 97% ; db 10:10 Body Mass Index 34.61 (94.35 kg, 165.10 cm) db MDM: 10:35 Patient medically screened. kdr 17:45 Data reviewed: vital signs, nurses notes, lab test result(s), radiologic studies. kdr Counseling: I had a detailed discussion with the patient and/or guardian regarding: the historical points, exam findings, and any diagnostic results supporting the discharge/admit diagnosis, lab results, radiology results, the need for further work-up and treatment in the hospital. 06/16 09:58 Order name: Basic Metabolic Panel kdr 06/16 09:58 Order name: CBC with Diff kdr 06/16 09:58 Order name: D-Dimer kdr 06/16 09:58 Order name: NT PRO-BNP kdr 06/16 09:58 Order name: PT-INR kdr 06/16 09:58 Order name: Troponin HS kdr 06/16 10:21 Order name: Lactate [facility] 06/16 10:44 Order name: CBC with Automated Diff; Complete Time: 12:14 EDMS 06/16 10:49 Order name: Protime (+INR); Complete Time: 12:14 EDMS 06/16 10:52 Order name: D-Dimer; Complete Time: 12:14 EDMS 06/16 11:00 Order name: Lactate; Complete Time: 12:14 EDMS 06/16 11:02 Order name: Basic Metabolic Panel; Complete Time: 12:14 EDMS 06/16 11:02 Order name: Troponin High Sensitivity; Complete Time: 12:14 EDMS 06/16 11:02 Order name: NT PRO-BNP; Complete Time: 12:14 EDMS 06/16 09:58 Order name: XRAY Chest (1 view) [facility] 06/16 09:58 Order name: EKG; Complete Time: 09:59 [facility] 06/16 09:58 Order name: Cardiac monitoring; Complete Time: 10:37 [facility] 06/16 09:58 Order name: EKG - Nurse/Tech; Complete Time: 10:52 [facility] 06/16 09:58 Order name: IV Saline Lock; Complete Time: 10:37 [facility] 06/16 09:58 Order name: Labs collected and sent; Complete Time: 10:38 [facility] 06/16 09:58 Order name: O2 Per Protocol; Complete Time: 10:37 [facility] 06/16 09:58 Order name: O2 Sat Monitoring; Complete Time: 10:37 [facility] 06/16 10:34 Order name: RAD; Complete Time: 12:14 EDMS 06/16 11:03 Order name: COVID-19 SARS RT PCR (Document "Date of Onset" if Symptomatic) jl7 06/16 11:09 Order name: CBC Smear Scan; Complete Time: 12:14 EDMS 06/16 12:10 Order name: SARS-COV-2 RT PCR; Complete Time: 12:14 EDMS Administered Medications: 10:45 Drug: Xopenex (levalbuterol) (3) 0.63 mg Route: Inhalation; db 11:00 Follow up: BP 121 / 62; Pulse 80 bpm; Resp 15 bpm; Pulse Ox 100% Mask: Nebulizer Mask; db Response: No adverse reaction 15:10 Drug: Metoprolol 5 mg Route: IVP; Site: left antecubital; db 15:15 Follow up: Response: No adverse reaction; Cardiac rhythm is unchanged db 15:20 Drug: Metoprolol 5 mg Route: IVP; Site: left antecubital; db 15:27 Follow up: Response: No adverse reaction; Cardiac rhythm changed db Disposition Summary: 06/16/22 10:35 Hospitalization Ordered Hospitalization Status: Inpatient Admission kdr Provider: Steve Barton Location: Telemetry/MedSurg (Inpatient) kdr Condition: Fair kdr Problem: an ongoing problem kdr Symptoms: are unchanged kdr Bed/Room Type: Standard kdr Room Assignment: 410(06/16/22 14:34) eb Diagnosis - Other pneumonia, unspecified organism kdr Forms: - Medication Reconciliation Form kdr - SBAR form kdr Signatures: Dispatcher [employer] EDMS Thony Villegas MD MD kdr Aleah Moya eb Steve Barton MD MD [id number] Migadlia Esteban RN RN db Corrections: (The following items were deleted from the chart) 14:34 10:35 kdr eb
--- NOTE | 2022-06-16 10:36 | ER ---
Nurse's Notes [facility] Name: Tristian Scott Age: 87 yrs Sex: Male : 1935 Arrival Date: 06/16/2022 Time: 09:56 Bed 7 Private MD: Diagnosis: Other pneumonia, unspecified organism Presentation: 06/16 10:10 Chief complaint: Patient states: Patient arrived with SOB by ambulance from the db doctor's office. SOB x 3 days with pain with inspiration. Diagnosed with PNA and COVID on Monday 06/11. Patient states got worse 06/14. Coronavirus screen: Vaccine status: Client denies travel out of the [place] in the last 14 days. Client presents with at least one sign or symptom that may indicate coronavirus-19. Client reports previous positive COVID test result. Date of collection: June 11, 2022. Ebola Screen: Patient negative for fever greater than or equal to 101.5 degrees Fahrenheit, and additional compatible Ebola Virus Disease symptoms Patient denies exposure to infectious person. Patient denies travel to an Ebola-affected area in the 21 days before illness onset. No symptoms or risks identified at this time. Initial Sepsis Screen: Does the patient meet any 2 criteria? No. Patient's initial sepsis screen is negative. Initial Sepsis Screen: Does the patient meet any 2 criteria? Does the patient have a suspected source of infection? Yes:. Initial Sepsis Screen: Does the patient meet any 2 criteria? Does the patient have a suspected source of infection? No. Patient's initial sepsis screen is negative. Risk Assessment: Do you want to hurt yourself or someone else? Patient reports no desire to harm self or others. Onset of symptoms was June 14, 2022. 10:10 Method Of Arrival: EMS: [facility] db 10:10 Acuity: GONZALES 2 db Triage Assessment: 10:15 General: Appears in no apparent distress. comfortable, Behavior is calm, cooperative, db quiet. Pain: Complains of pain in left upper abdomen Pain radiates to back Pain currently is 6 out of 10 on a pain scale. Pain began 2-3 days ago. EENT: No deficits noted. Neuro: No deficits noted. Cardiovascular: Reports EMS reports patient in Afib RVR at the doctors office. Respiratory: Reports shortness of breath pain with respiration since 2 days Breath sounds are diminished in left upper lobe and left lower lobe Breath sounds with wheezes bilaterally. GI: No deficits noted. : No deficits noted. Derm: No deficits noted. Musculoskeletal: No deficits noted. Historical: - Allergies: 10:15 No Known Allergies; db - Home Meds: 10:15 aspirin Oral [Active]; db - PMHx: 10:15 CAD; Chronic pain; High Cholesterol; Hypertension; db 15:39 Atrial fibrillation; Chronic systolic heart failure; db - Immunization history:: Adult Immunizations unknown, Client reports receiving the 2nd dose of the Covid vaccine, Flu vaccine is up to date. - Social history:: Smoking status: Patient denies any tobacco usage or history of. Patient/guardian denies using alcohol, street drugs, IV drugs, tobacco products. Screenin:20 Abuse screen: Denies threats or abuse. Denies injuries from another. Nutritional db screening: No deficits noted. Tuberculosis screening: No symptoms or risk factors identified. Fall Risk None identified. No fall in past 12 months (0 pts). No secondary diagnosis (0 pts). No IV (0 pts). Ambulatory Aid- None/Bed Rest/Nurse Assist (0 pts). Gait- Normal/Bed Rest/Wheelchair (0 pts) Mental Status- Oriented to own ability (0 pts). Total Jaeger Fall Scale indicates No Risk (0-24 pts). Assessment: 10:20 General: Appears in no apparent distress. Respiratory: Reports shortness of breath. db 14:52 Reassessment: HR noted to be 171bpm, HR noted to be irregular on monitor, pt sitting up aa5 in bed, pt c/o lower back pain from "sitting in this bed for too long", denies chest pain, denies palpitations. Dr. Villegas notified, no order for repeat EKG, pt's HR now maintaining at 150bpm and irregular, Dr. Villegas states to coordinate with hospitalist. Primary nurse, Migdalia notified. . Vital Signs: 10:10 BP 128 / 66; Pulse 92; Resp 20; Temp 98.7; Pulse Ox 93% on R/A; Weight 94.35 kg; Height db 5 ft. 5 in. (165.10 cm); Pain 6/10; 10:27 BP 139 / 69; Pulse 89; Resp 20; Pulse Ox 95% ; jl7 11:00 BP 121 / 62; Pulse 80; Resp 15; Pulse Ox 100% on Mask: Nebulizer Mask; db 11:00 BP 121 / 62; Pulse 80; Resp 15; Pulse Ox 100% on Nebulizer Mask; db 11:30 BP 122 / 53; Pulse 74; Resp 19; Pulse Ox 95% on 2 lpm NC; db 12:00 BP 127 / 56; Pulse 112; Resp 18; Pulse Ox 93% on 2 lpm NC; db 14:51 Pulse 171; aa5 14:52 BP 109 / 87; Pulse 150; Resp 20 S; Pulse Ox 100% on 2 lpm NC; aa5 15:03 BP 127 / 67; Pulse 145; Resp 24; Pulse Ox 98% on 3 lpm NC; db 15:20 BP 127 / 75; Pulse 149; Resp 22; Pulse Ox 96% ; db 15:27 Pulse 85; Resp 19; Pulse Ox 95% on 3 lpm NC; db 15:40 BP 124 / 69; Pulse 84; Resp 18; Pulse Ox 97% ; db 10:10 Body Mass Index 34.61 (94.35 kg, 165.10 cm) db ED Course: 09:56 Patient arrived in ED. eb 09:57 Thony Villegas MD is Attending Physician. kdr 10:09 Migdalia Esteban, RN is Primary Nurse. db 10:15 Triage completed. db 10:19 Arm band placed on right wrist. db 10:35 Steve Barton MD is Hospitalizing Provider. kdr 10:37 Lactate Sent. db 10:37 Basic Metabolic Panel Sent. db 10:37 CBC with Diff Sent. db 10:37 D-Dimer Sent. db 10:37 NT PRO-BNP Sent. db 10:37 PT-INR Sent. db 10:37 Troponin HS Sent. db 10:38 Maintain EMS IV. Dressing intact. Good blood return noted. Site clean \\T\\ dry. Gauge \\T\\ db site: 20 G left AC. Flushed. 10:38 Initial lab(s) drawn, by ED staff, sent to lab. EKG done, by ED staff, reviewed by elvis Villegas MD. 11:25 COVID swab sent to lab. jlÁlvaro 12:14 Bed in low position. Side rails up X 1. Client placed on continuous cardiac and pulse db oximetry monitoring. NIBP monitoring applied. Lights dimmed. Warm blanket given. 15:50 No provider procedures requiring assistance completed. db 15:59 Patient admitted, IV remains in place. intact, No redness/swelling at site. db Administered Medications: 10:45 Drug: Xopenex (levalbuterol) (3) 0.63 mg Route: Inhalation; db 11:00 Follow up: BP 121 / 62; Pulse 80 bpm; Resp 15 bpm; Pulse Ox 100% Mask: Nebulizer Mask; db Response: No adverse reaction 15:10 Drug: Metoprolol 5 mg Route: IVP; Site: left antecubital; db 15:15 Follow up: Response: No adverse reaction; Cardiac rhythm is unchanged db 15:20 Drug: Metoprolol 5 mg Route: IVP; Site: left antecubital; db 15:27 Follow up: Response: No adverse reaction; Cardiac rhythm changed db Medication: 10:20 VIS not applicable for this client. db Outcome: 10:35 Decision to Hospitalize by Provider. kdr 15:59 Admitted to Med/surg accompanied by tech, via wheelchair, room 410, with oxygen, with db chart, Report called to PIOTR Ace 16:00 Patient left the ED. db Signatures: Thony Villegas MD MD kdr Sari Carroll RN RN aa5 Judy Caruso RN RN jl7 Aleah Moya Danielle, PIOTR RN db Corrections: (The following items were deleted from the chart) 12:14 10:15 Pain: Complains of pain in left upper abdomen Pain radiates to back Pain db currently is 6 out of 10 on a pain scale. Pain began 2-3 days ago. db 12:14 10:15 Cardiovascular: No deficits noted. db db 14:57 14:52 Reassessment: HR noted to be 171bpm, HR noted to be irregular on monitor, pt aa5 sitting up in bed, pt c/o lower back pain from "sitting in this bed for too long". Dr. Villegas notified, no order for repeat EKG, pt's HR now maintaining at 150bpm and irregular, Dr. Villegas states to coordinate with hospitalist. Primary nurse, Migdalia notified. . aa5 15:34 15:31 Response: No adverse reaction; Cardiac rhythm is unchanged db db
[2022-06-16] MEDS ORDERED: LEVALBUTEROL 1.25 MG/3 ML NEB ONE (10:42)
[2022-06-16 10:43] LABS: Absolute Lymphocytes (CBC) 0.8 K/uL (0.7-4.9); Hematocrit 32.7 % (39.6-49.0); Lymphocytes % 4.3 % (15.3-44.8); MCV 95.7 fL (80-100); MPV 7.5 fL (7.6-11.3); RBC Red Blood Cell Count 3.41 M/uL (4.33-5.43)
[2022-06-16 10:49] LABS: Protime INR 1.44
[2022-06-16 11:02] LABS: Potassium 4.3 mmol/L (3.5-5.1); Troponin High Sensitivity 19.3 pg/mL (<58.9)
[2022-06-16 11:08] LABS: White Blood Cell Scan OK (OK)
[2022-06-16 11:09] LABS: Blood Morphology Comment NOT SEEN (NOT SEEN); Platelet Estimate ADEQ
[2022-06-16] MEDS ORDERED: ONDANSETRON 4 MG/2 ML VIAL IV PRN (13:54)
[2022-06-16] MEDS ORDERED: ALBUTEROL 2.5 MG/3 ML NEB SOL NEB PRN (13:54)
--- NOTE | 2022-06-16 13:57 | P.HP ---
Certification for Inpatient Patient admitted to: Inpatient With expected LOS: >2 Midnights Practitioner: I am a practitioner with admitting privileges, knowledge of patient current condition, hospital course, and medical plan of care. Services: Services provided to patient in accordance with Admission requirements found in Title 42 Section 412.3 of the Code of Federal Regulations Patient History Date of Service: 06/16/22 Reason for admission: Hypoxemia History of Present Illness: 87yo M, PMH: paroxysmal afib, CAD s/p PCI (1999), CKD 4, recent COVID-pneumonia Sent to the ED by his PCP due to progressively worsening shortness of breath over the last week. Patient was recently hospitalized 1 week ago for atrial fibrillation with RVR and found to have mild COVID-pneumonia. He was doing well at discharge, and 2-3 days later he began to feel worse. He reports dyspnea on exertion, left flank/lower rib sharp stabbing pain with deep inspiration and cough, generalized weakness. He states he was recently started on Eliquis after his most recent hospitalization 1 week ago. In the ED, he was noted to be tachypneic, slight tachycardic in the 90s, 92% on 3 L nasal cannula, chest x-ray with small left pleural effusion and possible left lower lobar pneumonia, leukocytosis, elevated BNP, and elevated D-dimer. COVID-negative Allergies No Known Allergies Allergy (Verified 08/09/21 15:58) Home Medications: Aspirin 325 tab PO DAILY 01/11/17 Atorvastatin Calcium [Lipitor] 40 mg PO BEDTIME 01/11/17 Methocarbamol 500 mg PO DAILYPRN PRN 01/11/17 Ropinirole HCl 1 mg PO TID 01/11/17 Terazosin HCl 5 mg PO BEDTIME 01/11/17 Tramadol HCl 1 tab PO Q4HP PRN 01/11/17 Allopurinol 100 mg PO DAILY 08/09/21 Furosemide [Lasix] 40 mg PO DAILY 08/09/21 Gabapentin [Neurontin] 100 mg PO BID 08/09/21 Metoprolol Succinate [Toprol Xl] 25 mg PO DAILY 08/09/21 - Past Medical/Surgical History Diabetic: No -: HTN -: hyperlipidemia -: kidney failure -: cardiac stents -: knee replacement - Family History Family History: Reviewed- Non-Contributory - Social History Smoking Status: Former smoker Alcohol use: No CD- Drugs: No Caffeine use: No Place of Residence: Home Review of Systems 10-point ROS is otherwise unremarkable Physical Examination - Physical Exam General: Alert, Oriented x3, Mild distress HEENT: EOMI, Sclerae nonicteric Respiratory: Diminished (at bases), Crackles/rales (bilaterally) Cardiovascular: Edema (trace bilateral lower extremities), Irregular heart rate/rhythm Gastrointestinal: Soft and benign, Non-distended, Tenderness (upper abdomen) Musculoskeletal: No contractures, No tenderness (abdominal wall muscle) Integumentary: No rashes, No significant lesion Neurological: Normal speech, Normal affect - Studies Laboratory Data (last 24 hrs) 06/16/22 10:30: PT 16.0 H, INR 1.44 06/16/22 10:30: WBC 17.50 H, Hgb 11.0 L, Hct 32.7 L, Plt Count 384 06/16/22 10:30: Sodium 141, Potassium 4.3, BUN 34 H, Creatinine 1.54 H, Glucose 127 H Assessment and Plan - Advance Directives Does patient have a Living Will: No Does patient have a Durable POA for Healthcare: Yes Physician Review Additional Text: Problem list Acute hypoxemic respiratory failure secondary to pneumonia, atrial fibrillation Paroxysmal atrial fibrillation with RVR Recent COVID-19 pneumonia CKD 4 Chronic CHF, unknown type Suspect patient's dyspnea/hypoxemia secondary to atrial fibrillation with RVR Leukocytosis secondary to recent steroid usage, possibly from infection Unclear if pneumonia seen on chest x-ray is new or evidence of recent infection did not resolve on imaging SIRS 2/4, lactate normal, not septic Tachycardia secondary to atrial fibrillation. This would be a second admission with Karen pepe with RVR, cardiology consulted IV metoprolol, restart home p.o. metoprolol Empiric antibiotics for possible pneumonia, pulmonology consulted Elevated D-dimer, could be secondary from recent COVID infection/pneumonia. Unable to obtain CTA due to risk to his renal function, VQ scan ordered Patient anticoagulated weight, restart home Eliquis 5 mg twice daily confirm home meds, restart as appropriate VTE: eliquis 5mg BID Code: DNR Dispo: home, ~2-3 days Time Spent Managing Pts Care (In Minutes): 70
[2022-06-16] MEDS ORDERED: predniSONE 20 MG TAB PO SCH (15:00)
[2022-06-16] MEDS ORDERED: ENOXAPARIN 30 MG/0.3 ML SQ SCH (15:00)
[2022-06-16] MEDS ORDERED: METOPROLOL TARTRATE 5 MG/5 ML INJ IV ONE ×2 (15:02→15:21)
[2022-06-16 16:49] VITALS: BMI 35.6
--- NOTE | 2022-06-16 16:52 | RAD REPORT ---
EXAM DESCRIPTION: NM - Vent Perfusion VQ Scan - 06/16/2022 4:26 pm CLINICAL HISTORY: r/o PE weakness COMPARISON: Same-day chest radiograph TECHNIQUE: The patient was administered 21.4 Xenon 133 gas with posterior projection inspiration, eq uilibrium, and washout views obtained. The patient was then administered 6.5 Tc-99m SC labeled RBCs f ollowed by standard 8 view protocol. FINDINGS: Very poor distribution of the Xenon is present. The patient was unable to follow breathing instruction. This portion of the exam is nondiagnostic. Perfusion images show no defects suspicious for pulmonary emboli. IMPRESSION: Normal perfusion. Very low probability for pulmonary embolism. The ventilation portion of the exam is nondiagnostic.
[2022-06-16] MEDS: METOPROLOL TAR 25 MG TAB PO SCH (16:56)
[2022-06-16] MEDS ORDERED: INFLUENZA VACCINE (for 6+ mo) 0.5 ML DOSE IMVAC ONE (18:00)
[2022-06-16] MEDS: APIXABAN 5 MG TABLET PO SCH (20:05)
[2022-06-16] MEDS ORDERED: HYDROCODONE/APAP 5/325 MG TAB PO PRN (20:53)
[2022-06-17] MEDS: METOPROLOL TAR 25 MG TAB PO SCH ×3 (00:15→16:20)
[2022-06-17] MEDS: BENZONATATE 100 MG CAP PO PRN ×2 (04:56→20:03)
--- NOTE | 2022-06-17 06:22 | P.PN ---
Date of Service: 06/17/22 Subjective: Feels his breathing is slightly improved feels he has some "brain fog" today no new symptoms/complaints throat is sore ROS: 10 point ROS as noted above, otherwise negative Physical exam General: Alert, Oriented x3, NAD HEENT: EOMI, Sclerae nonicteric Respiratory: Diminished (at bases L>R), Crackles/rales (bilaterally) Cardiovascular: Edema (trace bilateral lower extremities), Irregular heart rate/rhythm Gastrointestinal: Soft and benign, Non-distended, Tenderness (upper abdomen) Neurological: Normal speech, Normal affect Problem list Acute hypoxemic respiratory failure secondary to large loculated pleural ef fusion, pneumonia, atrial fibrillation Paroxysmal atrial fibrillation with RVR Recent COVID-19 pneumonia CKD 4 Chronic CHF, unknown type SIRS 2/4, lactate normal, not septic Suspect patient's dyspnea/hypoxemia is multifactorial - large loculated pleural effusion, pneumonia, afib No change of leukocytosis, raising my suspicion for infection versus recent steroid use CT chest today: Large pleural effusion, suspicious for loculation Lateral decubitus x-ray, without any layering Discussed with pulmonology, recommends transfer to tertiary care center for IR tube placement Tachycardia secondary to atrial fibrillation. This would be a second admission with Karen pepe with RVR, cardiology consulted IV metoprolol given in ED, restarted home p.o. metoprolol with improvement Empiric antibiotics for possible pneumonia, pulmonology consulted Elevated D-dimer, could be secondary from recent COVID infection/pneumonia. Unable to obtain CTA due to risk to his renal function, VQ scan negative, less than ideal study. Bilateral venous Dopplers negative for DVT Continue home Eliquis 5 mg twice daily Continue home Lasix VTE: eliquis 5mg BID Code: DNR Dispo: initiate transfer to tertiary [facility] - IR for drainage of suspected complex multiloculated effusion Time Spent Managing Pts Care (In Minutes): 35
--- NOTE | 2022-06-17 06:37 | RAD REPORT ---
EXAM DESCRIPTION: US - Extrem Venous W Compress Nazario - 06/17/2022 6:21 am CLINICAL HISTORY: r/o dvt, bilateral leg pain and swelling COMPARISON: None. TECHNIQUE: Real-time sonographic evaluation of the bilateral lower extremity common femoral, superfi cial femoral, popliteal and posterior tibial veins was performed. FINDINGS: Normal compressibility, flow augmentation, phasic flow and spontaneous flow are identified in the left and right lower extremity common femoral, superficial femoral, popliteal and posterior t ibial veins. No intraluminal filling defects seen. IMPRESSION: No DVT in either lower extremity.
[2022-06-17 06:38] LABS: Absolute Lymphocytes (CBC) 1.5 K/uL (0.7-4.9); Hematocrit 30.8 % (39.6-49.0); Lymphocytes % 8.4 % (15.3-44.8); MPV 7.8 fL (7.6-11.3); RBC Red Blood Cell Count 3.18 M/uL (4.33-5.43)
[2022-06-17 06:55] LABS: Albumin 2.1 g/dL (3.4-5.0); Bilirubin Total 0.7 mg/dL (0.2-1.0); Magnesium 2.2 mg/dL (1.8-2.4); Phosphorus 2.9 mg/dL (2.5-4.9); Potassium 4.3 mmol/L (3.5-5.1); Protein, Total 5.8 g/dL (6.4-8.2)
[2022-06-17] MEDS ORDERED: CEFTRIAXONE 1,000 MG in NA CHLORIDE 0.9% 50 ML IVPB SCH (09:00)
[2022-06-17] MEDS ORDERED: AZITHROMYCIN IV 500 MG in NA CHLORIDE 0.9% 250 ML IVPB SCH (09:00)
[2022-06-17] MEDS: GALANTAMINE HBR 8 MG PO SCH (09:00)
[2022-06-17] MEDS: FUROSEMIDE 40 MG TABLET PO SCH ×2 (09:19→20:04)
[2022-06-17] MEDS: APIXABAN 5 MG TABLET PO SCH ×2 (09:19→20:04)
--- NOTE | 2022-06-17 11:42 | P.CNS ---
Date of Consult: 06/17/22 Reason for Consult: Pneumonia Chief Complaint: Hypoxemia History of Present Illness: Patient is 87 years of age with a history of A. fib coronary artery disease recent COVID-pneumonia admitted due to progressive shortness of breath he was hospitalized and Pedro discharge came back again feeling worse more short of breath productive cough generalized weakness was treated for A. fib recently with anticoagulation admitted with hypoxemia chest congestion Chest x-ray shows some haziness on the left side Allergies No Known Allergies Allergy (Verified 08/09/21 15:58) Home Medications: Atorvastatin Calcium [Lipitor] 1 tab PO BEDTIME 06/16/22 Ergocalciferol (Vitamin D2) [Drisdol] 1 cap PO EVERY 7TH DAY 06/16/22 Furosemide 40 mg PO BID 06/16/22 Gabapentin 1 tab PO BEDTIME 06/16/22 Galantamine HBr [Galantamine ER] 1 tab PO DAILY 06/16/22 Metoprolol Succinate [Toprol Xl] 25 mg PO DAILY AT SUPPER 06/16/22 Omeprazole 1 tab PO DAILY 06/16/22 Ropinirole HCl 1 tab PO BEDTIME 06/16/22 Terazosin HCl 1 tab PO BEDTIME 06/16/22 methocarbamoL [Methocarbamol] 1 tab PO BEDTIME 06/16/22 - Past Medical/Surgical History Diabetic: No -: HTN -: hyperlipidemia -: kidney failure -: cardiac stents -: knee replacement - Social History Alcohol use: No CD- Drugs: No Caffeine use: No Place of Residence: Home Review of Systems 10-point ROS is otherwise unremarkable General: Weakness Respiratory: Cough, Shortness of Breath Physical Examination Temp Pulse Resp BP Pulse Ox 98.8 F 70 16 149/63 H 95 06/17/22 11:34 06/17/22 11:34 06/17/22 11:34 06/17/22 11:34 06/17/22 11:34 General: Alert, In no apparent distress, Oriented x3 Neck: Supple Respiratory: Diminished (Diminished on the left side with some crackle) Cardiovascular: No edema, Regular rate/rhythm, Normal S1 S2 Gastrointestinal: Normal bowel sounds, Soft and benign - Problems (1) Pneumonia Current Visit: Yes Status: Acute Plan: Patient is 87 years of age admitted with worsening shortness of breath product bony cough recent history of COVID-pneumonia he also has severe coronary artery disease possible pneumonia with underlying pleural effusion he is got significant haziness on the left side elevated white count. We will plan to do a decubitus of the chest with a chest CT without contrast patient has renal failure I suspect is chronic he is seeing a heel reducer as an outpatient no prior history of smoking no DVT evaluate oh probability of pulmonary embolism changed to meropenem he is at risk for resistant organism as he was recently hospitalized also has mild anemia x-rays laboratory data reviewed Qualifiers: Laterality: left
--- NOTE | 2022-06-17 12:56 | RAD REPORT ---
EXAM DESCRIPTION: CT - Thorax Wo Con - 06/17/2022 12:47 pm CLINICAL HISTORY: Possible pneumonia/pleural effusion COMPARISON: Chest Single View dated 06/16/2022 TECHNIQUE: Axial 5 mm thick images of the chest were obtained without IV contrast. All CT scans are performed using dose optimization technique as appropriate and may include automated exposure control or mA/KV adjustment according to patient size. FINDINGS: Large left pleural effusion is present filling the left base and extending along the poste rior chest to the aortic arch level. Left lower lobe atelectasis present. There are few air bronchogr ams present. Convex contour to the pleural effusion would favor loculation. Left lower lobe pneumonia is not excluded though the primary process is atelectasis. No acute left upper lobe finding. There is some subpleural scarring and a few pleural calcifications anterior mid left lung field. Minimal by a focal scarring changes are present. Minimal scarring felix es in the posterior lower right lung field. No acute right lung process. No right-sided pleural effus ion. There is no pneumothorax. No abnormal mediastinal or hilar masses or lymphadenopathy seen. No gross aortic or pulmonary artery finding suspected. Minimal pericardial effusion is present without cardiomegaly. No chest wall mass or abnormal axillary lymphadenopathy. IMPRESSION: Large left pleural effusion, probably loculated, with complete or near complete left low er lobe atelectasis. Some component of pneumonia in the left lower lobe is possible. The primary process is atelectasis. An obstructing mass is not identified.
[2022-06-17] MEDS: Meropenem 1,000 MG in NA CHLORIDE 0.9% 100 ML IV SCH (12:57)
--- NOTE | 2022-06-17 14:39 | RAD REPORT ---
EXAM DESCRIPTION: RAD - Chest Lateral Decubitus - 06/17/2022 2:32 pm CLINICAL HISTORY: Large left pleural effusion COMPARISON: CT chest same date, portable chest June 16 TECHNIQUE: Right and left lateral decubitus films were obtained. FINDINGS: No measurable layering of the large left pleural effusion, suspected to be loculated. No left-sided pleural effusion.
--- NOTE | 2022-06-17 19:10 | CON ---
Date of Consultation: 06/17/2022 Reason For Consult: Acute on chronic renal insufficiency. History Of Present Illness: Mr. Scott is an 87-year-old male with past medical history significant for history of chronic kidney disease stage 4, hypertension, COPD with recent admission to [facility] for COVID pneumonia, was sent over to [facility] ER after he was seen by Dr. Ng yesterday in the office and he was significantly hypoxic and was found to have atrial fib rillation with RVR. The patient upon arrival to the emergency room, he was ruled out for PE and he h as been admitted to the hospital for further evaluation and admission. The patient states that he fe els slightly better today. Denies any chest pain. Denies any worsening shortness of breath. Past Medical History: Significant for history of chronic kidney disease, atrial fibrillation, COPD, diverticulitis, history of peripheral neuropathy, GERD, stricture of esophagus, and history of respir atory failure. Social History: He lives at home. No history of smoking or alcohol use at this current time reporte d. Home Medications: Have been reviewed in detail. Laboratory Data: At this time are showing sodium of 140, potassium of 4.3, chloride of 109, bicarb o f 28, BUN of 29 and creatinine of 1.39, which is significantly improved from 1.54. CBC showed stable hemoglobin, hematocrit, and WBC count of 17.4. Current Medications: Include Eliquis 5 mg b.i.d., atorvastatin, Lasix 40 mg b.i.d., hydrocodone p.r. n. for pain, and terazosin at bedtime. He is currently not receiving any IV fluids. His blood cultures so far are still pending. Impression: 1.Acute on chronic renal insufficiency secondary to acute tubular necrosis, improving. 2.Uncontrolled atrial fibrillation with RVR. He is currently rate controlled. He remains on Eliqui s for anticoagulation and metoprolol for rate control and is more rate controlled at this time. 3.Chronic obstructive pulmonary disease, currently stable. 4.Leukocytosis. Continue to monitor at this time. 5.History of chronic congestive heart failure, compensated. Continue p.o. Lasix. 6.Underlying lobar pneumonia, likely the patient is currently on meropenem at this time. Plan: Overall, the patient is doing okay at this time. Continue to monitor closely. Renal function is significantly improved. Continue p.o. Lasix and meropenem adjusted for renal function. We will continue to follow the patient. Please do not hesitate to call us with any questions or concerns. PRESTON/CARRIE Voice ID: [id number] Report ID: [id number]
[2022-06-17] MEDS ORDERED: ROPINIROLE HCL 1 MG TAB PO SCH (21:00)
[2022-06-17] MEDS ORDERED: ATORVASTATIN 80 MG TAB PO SCH (21:00)
[2022-06-17] MEDS ORDERED: GABAPENTIN 300 MG CAP PO SCH (21:00)
[2022-06-17] MEDS ORDERED: TERAZOSIN HCL 5 MG CAP PO SCH (21:00)
[2022-06-18] MEDS: METOPROLOL TAR 25 MG TAB PO SCH ×2 (00:17→08:25)
[2022-06-18] MEDS: Meropenem 1,000 MG in NA CHLORIDE 0.9% 100 ML IV SCH ×2 (00:18→11:44)
[2022-06-18 04:02] LABS: Absolute Lymphocytes (CBC) 1.5 K/uL (0.7-4.9); Hematocrit 29.3 % (39.6-49.0); Lymphocytes % 7.7 % (15.3-44.8); MCV 96.5 fL (80-100); MPV 8.2 fL (7.6-11.3); RBC Red Blood Cell Count 3.03 M/uL (4.33-5.43)
[2022-06-18 04:19] LABS: Bilirubin Total 0.7 mg/dL (0.2-1.0); Magnesium 2.2 mg/dL (1.8-2.4); Phosphorus 3.1 mg/dL (2.5-4.9); Potassium 4.6 mmol/L (3.5-5.1); Protein, Total 5.8 g/dL (6.4-8.2)
[2022-06-18] MEDS: BENZONATATE 100 MG CAP PO PRN ×2 (05:16→11:44)
[2022-06-18] MEDS ORDERED: PHENOL 1.4% ORAL SPRAY 180ML MM PRN ×2 (05:57→08:00)
--- NOTE | 2022-06-18 07:46 | EKG ---
Test Date: 2022-06-16 Test Time: 15:02:35 Laundry Attendant: ADÁN MEASUREMENT RESULTS: Intervals: Rate: 134 [place]: QRSD: 78 QT: 314 QTc: 468 [place]: P: [place]: QRS: 15 T: -4 INTERPRETIVE STATEMENTS: Atrial fibrillation with rapid ventricular response Nonspecific ST abnormality Abnormal ECG Compared to ECG 03/27/2014 10:00:04 ST (T wave) deviation now present Sinus tachycardia no longer present Left-axis deviation no longer present Myocardial infarct finding no longer present Electronically Signed On 06-18-22 07:44:19 CDT by Abiel Pelletier
--- NOTE | 2022-06-18 07:58 | RAD REPORT ---
EXAM DESCRIPTION: RAD - Chest Single View - 06/18/2022 6:25 am CLINICAL HISTORY: eval pneumonia/pleural effusion Chest pain. COMPARISON: Chest Single View dated 06/16/2022; CHEST SINGLE VIEW dated 03/27/2014 FINDINGS: Portable technique limits examination quality. Haziness involving the left lung, likely attributable to infiltrate and pleural fluid, shows no signi ficant change since comparative study. The right lung is grossly clear. The heart is mildly enlarged in size. No displaced fractures. IMPRESSION: Stable chest since 06/16/2022.
[2022-06-18] MEDS: FUROSEMIDE 40 MG TABLET PO SCH (08:23)
[2022-06-18] MEDS: APIXABAN 5 MG TABLET PO SCH (08:24)
[2022-06-18] MEDS: GALANTAMINE HBR 8 MG PO SCH (08:25)
[2022-06-18 09:41] VITALS: O2SAT 93
--- NOTE | 2022-06-18 10:16 | PN ---
Date of Progress Note: 06/18/2022 Mr. Scott is 87. Was admitted with left lower lobe pneumonia, loculated pleural effusion, paroxysm al atrial fibrillation. Has a history of CAD, CHF, hypertension, dyslipidemia. Echocardiogram is pe nding for tomorrow. He has done well overnight on beta-blockers and Eliquis, antibiotics, and Lasix. This morning, he really has no specific complaint except that his breathing is still short. He has been seen by Pulmonology and was suggested that he goes to [facility] to have that loculated pleural ef fusion drained. Apparently, this has been planned. Cardiac aguilera, he is in sinus rhythm on metoprolo l and Eliquis. We may want to hold his Eliquis for a day or 2 because he is going to have any lung p rocedure done. I will discuss the case further with Dr. Barton and Dr. Figueroa. No change in medica l therapy otherwise from my standpoint. RICHELLE/CARRIE Voice ID: [id number] Report ID: [id number]
--- NOTE | 2022-06-18 10:49 | CON ---
Date of Consultation: 06/17/2022 Reason For Consultation: Paroxysmal atrial fibrillation. History Of Present Illness: Mr. Scott is 87 years old. Has a history of chronic systolic congesti ve heart failure, coronary artery disease, hypertension, dyslipidemia, and atrial fibrillation. Came in with a left lower lobe pneumonia, loculated large pleural effusion by CT scan, elevated BNP, nega tive troponin, creatinine 1.39. White count was 17,000. D-dimer was 4195. He was in and out of atr ial fibrillation. I was consulted. By the time I saw him, he was in sinus rhythm. He has no cardia c complaint, but is complaining of shortness of breath and left pleuritic chest pain. Past Medical History: As stated above. Allergies: NONE. Review of Systems: Positive for him being a do not resuscitate. Social History: Unremarkable. Family History: Noncontributory. Medications: Include Eliquis, Lipitor, Hytrin, metoprolol. He is also now on Lasix and antibiotics x3. Physical Examination: Vital Signs: Stable, sinus rhythm, afebrile. HEENT: Negative. Neck: Supple with no bruit. Chest: Clear on the right. Decreased breath sound on the left. Cardiac: Revealed regular rhythm and rate. Positive S4 gallops and aortic sclerosis murmur. Abdomen: Benign. Extremities: Revealed no clubbing, cyanosis, or edema. Skin: Dry and intact. Neurologic: He was nonfocal. Diagnostic Data: CT of the chest revealed left lower lobe pneumonia with pleural effusion is loculat ed. Venous Doppler was negative. V/Q was negative. Troponin is negative. D-dimer was elevated at 4195. BNP is 1677. White count is 17,000. Creatinine is 1.39. Impression And Plan: 1.Paroxysmal atrial fibrillation, on appropriate therapy with metoprolol and Eliquis. Echocardiogra m is pending. 2.Do not resuscitate status. 3.Renal insufficiency. 4.Elevated white count secondary to pneumonia with a loculated effusion. He may need to go to [facility] on to have that effusion drained. His other problems include elevated D-dimer and BNP secondary to p neumonia. He also has a history of coronary artery disease that is stable, chronic systolic congesti ve heart failure that is stable. Echocardiogram is pending. His blood pressure is well controlled. Dyslipidemia is well controlled. Again, continue metoprolol and Eliquis. Continue antibiotics and Lasix. Obtain a 2D echocardiogram. Attempt transferring to [place], Nephrology followup and Pulmono logy followup. We will continue to follow him. DENNIS Voice ID: [id number] Report ID: [id number]
--- NOTE | 2022-06-18 11:17 | P.DS ---
Admission Date: 06/16/22 Discharge Date: 06/18/22 Disposition: TRANSFER TO [facility] Discharge Condition: FAIR Reason for Admission: Hypoxemia Consultations: PulmonologyDr. Mayi CardiologyDr. Prabhu NephrologyDr. Easton Ng Vellanki Brief History of Present Illness: 87yo M, PMH: paroxysmal afib, CAD s/p PCI (1999), CKD 4, recent COVID-pneumonia Sent to the ED by his PCP due to progressively worsening shortness of breath over the last week. Patient was recently hospitalized 1 week ago for atrial fibrillation with RVR and found to have mild COVID-pneumonia. He was doing well at discharge, and 2-3 days later he began to feel worse. He reports dyspnea on exertion, left flank/lower rib sharp stabbing pain with deep inspiration and cough, generalized weakness. He states he was recently started on Eliquis after his most recent hospitalization 1 week ago. In the ED, he was noted to be tachypneic, slight tachycardic in the 90s, 92% on 3 L nasal cannula, chest x-ray with small left pleural effusion and possible left lower lobar pneumonia, leukocytosis, elevated BNP, and elevated D-dimer. COVID-negative Hospital Course: Problem list Acute hypoxemic respiratory failure secondary to large loculated pleural effusion, pneumonia, complicated by atrial fibrillation Paroxysmal atrial fibrillation with RVR Recent COVID-19 pneumonia CKD 4 Chronic CHF, unknown type Patient was treated with IV antibiotics, nebulizers, and continued on his home medications. He had minimal improvement the following day with unchanged leukocytosis. Pulmonology was consulted. CT chest and lateral decubitus films obtained: large left loculated pleural effusion. Pulmonology concerned this is multiloculated and recommend transfer to facility with IR for drainage. Antibiotics were broadened to meropenem Patient remained stable on 2-3 L nasal cannula. He does not use oxygen supplementation at home Chest x-rays have been stable. CT chest with no mass / obstructing lesion, no large pneumonia seen, +atelectasis. Patient was COVID-negative in the ED Shortly after evaluation in the ED, patient was noted to to go into A. fib with RVR, which resolved/converted to sinus rhythm after IV Lopressor and resumption of his home metoprolol. Per his detective bowling alley, Dr. Ng, patient has history of paroxysmal A. fib, and was noted be in A. fib with RVR 1 week ago at [facility]. His metoprolol dosing was changed at that point and he had improvement. Patient was also started on Eliquis at that time. Eliquis was continued during hospitalization, last dose given evening of 06/17. Discontinued in preparation for procedure Cardiology was consulted given the recent episodes of atrial fibrillation, in agreement to continue current regimen of beta-blockers. An echocardiogram was ordered to evaluate patient's congestive heart failure, however unable to obtain over the weekend. Patient's elevated D-dimer was further evaluated. Lower extremity venous Dopplers negative for DVT, and VQ scan was obtained and noted low probability for PE, however was not an ideal test to the patient's shallow inspiration. Patient was accepted and transferred to [facility] Vital Signs/Physical Exam: Temp Pulse Resp BP Pulse Ox 97.9 F 81 22 H 134/63 95 06/18/22 07:46 06/18/22 08:25 06/18/22 07:46 06/18/22 08:25 06/18/22 07:46 General: Alert, In no apparent distress, Oriented x3 HEENT: EOMI, Sclerae nonicteric Respiratory: Diminished, Crackles/rales (at left base), Expiratory wheezes, Other (nonlabored at rest on 3L NC) Cardiovascular: Regular rate/rhythm, Edema (trace-1+ bilateral lower extremity) Gastrointestinal: Soft and benign, Non-distended Musculoskeletal: No erythema, No tenderness Neurological: Normal speech, Normal strength at 5/5 x4 extr, Normal affect Laboratory Data at Discharge: WBC 19.60 K/uL (4.3-10.9) H 06/18/22 03:31 Hgb 9.8 g/dL (13.6-17.9) L 06/18/22 03:31 Hct 29.3 % (39.6-49.0) L 06/18/22 03:31 Plt Count 388 K/uL (152-406) 06/18/22 03:31 PT 16.0 SECONDS (9.5-12.5) H 06/16/22 10:30 INR 1.44 06/16/22 10:30 Sodium 140 mmol/L (136-145) 06/18/22 03:31 Potassium 4.6 mmol/L (3.5-5.1) 06/18/22 03:31 BUN 29 mg/dL (7-18) H 06/18/22 03:31 Creatinine 1.49 mg/dL (0.55-1.3) H 06/18/22 03:31 Glucose 123 mg/dL (74-106) H 06/18/22 03:31 Phosphorus 3.1 mg/dL (2.5-4.9) 06/18/22 03:31 Magnesium 2.2 mg/dL (1.8-2.4) 06/18/22 03:31 Total Bilirubin 0.7 mg/dL (0.2-1.0) 06/18/22 03:31 AST 38 U/L (15-37) H 06/18/22 03:31 ALT 70 U/L (12-78) 06/18/22 03:31 Alkaline Phosphatase 149 U/L (45-117) H 06/18/22 03:31 Home Medications: Atorvastatin Calcium [Lipitor] 1 tab PO BEDTIME 06/16/22 Ergocalciferol (Vitamin D2) [Drisdol] 1 cap PO EVERY 7TH DAY 06/16/22 Furosemide 40 mg PO BID 06/16/22 Gabapentin 1 tab PO BEDTIME 06/16/22 Galantamine HBr [Galantamine ER] 1 tab PO DAILY 06/16/22 Metoprolol Succinate [Toprol Xl] 25 mg PO DAILY AT SUPPER 06/16/22 Omeprazole 1 tab PO DAILY 06/16/22 Ropinirole HCl 1 tab PO BEDTIME 06/16/22 Terazosin HCl 1 tab PO BEDTIME 06/16/22 methocarbamoL [Methocarbamol] 1 tab PO BEDTIME 06/16/22 Followup: Deb Ng MD [Primary Care Provider] - Time spent managing pt's care (in minutes): 45
[2022-06-18 11:22] VITALS: BP 138/61; TEMP 98.4
[2022-06-18] MEDS ORDERED: FUROSEMIDE 40 MG/4 ML VIAL IV SCH (17:00)
--- NOTE | 2022-06-18 17:51 | PN ---
Date of Progress Note: 06/18/2022 Subjective: The patient was seen and examined at bedside. He is doing okay. He is planned to be tr ansferred for IR-guided thoracentesis. Objective: Vital Signs: Have been reviewed and are stable. General: He appears in no acute distress. HEENT: Shows atraumatic head. Lungs: Auscultation of lungs revealed diminished breath sounds at bilateral bases. Abdomen: Soft and nontender. Extremities: Show trace amount of edema. Laboratory Data: Showing creatinine of 1.49, BUN of 9, and other electrolytes are stable. CBC showi ng WBC count of 19,000, hemoglobin of 9.8, hematocrit 29.3, and platelet count of 388. Current Medications: Include atorvastatin, benzonatate, Lasix 40 mg b.i.d., meropenem, metoprolol, a nd terazosin at bedtime. Impression: 1.Acute on chronic renal insufficiency with underlying cardiorenal syndrome, currently overall stabl e renal function. 2.Pneumonia with pleural effusion noted on the CT scan. The patient with worsening hypoxia. Hence, we will go ahead and get him thoracentesis done with a large pleural effusion noted on the left side . 3.Atrial fibrillation, rate controlled at this time. 4.Elevated D-dimer likely secondary to recent COVID pneumonia. Venous Dopplers were negative for de ep vein thrombosis. Continues to be on Eliquis. Plan: Overall, the patient is stable; however, he needs thoracentesis done. We will request nursing staff to place him on oxygen with humidifier to improve his oxygenation and we will continue with La six at this time. We will possibly need to be switched to IV Lasix to improve his volume status. We luke l continue to monitor closely. VV/MODL Voice ID: [id number] Report ID: [id number]
--- NOTE | 2022-06-19 14:16 | EKG ---
Test Date: 2022-06-16 Test Time: 15:32:28 Timber Sprinkler: ADÁN MEASUREMENT RESULTS: Intervals: Rate: 81 MT: 166 QRSD: 82 QT: 380 QTc: 441 [place]: P: 42 MT: 166 QRS: 13 T: 33 INTERPRETIVE STATEMENTS: Normal sinus rhythm Normal ECG Compared to ECG 06/16/2022 15:02:35 Atrial fibrillation no longer present ST (T wave) deviation no longer present Electronically Signed On 06-19-22 14:14:10 CDT by Lester Torres
--- NOTE | 2022-06-19 14:17 | EKG ---
Test Date: 2022-06-16 Test Time: 10:52:43 Bee Producer: ADÁN MEASUREMENT RESULTS: Intervals: Rate: 84 NH: 154 QRSD: 84 QT: 388 QTc: 458 [place]: P: 40 NH: 154 QRS: 7 T: 30 INTERPRETIVE STATEMENTS: Sinus rhythm with occasional and consecutive premature ventricular complexes Abnormal ECG Compared to ECG 03/27/2014 10:00:04 Ventricular premature complex(es) now present Sinus tachycardia no longer present Left-axis deviation no longer present Myocardial infarct finding no longer present Electronically Signed On 06-19-22 14:14:22 CDT by Lester Torres
== END 2022-06-18 13:20 | disposition short-term general hospital (02) | DRG 193 ==
LOC: ER 09:46 → ERHOLD 13:54 → 4TH 15:44
PROVIDERS: ADMIT Hospitalist; ATTEND Hospitalist
DX: J18.9 Pneumonia, unspecified organism (principal); J96.01 Acute respiratory failure with hypoxia; N17.0 Acute kidney failure with tubular necrosis; I50.22 Chronic systolic (congestive) heart failure; N18.4 Chronic kidney disease, stage 4 (severe); I13.0 Hypertensive heart and chronic kidney disease with heart failure and stage 1 through stage 4 chronic kidney disease, or unspecified chronic kidney disease; J44.0 Chronic obstructive pulmonary disease with (acute) lower respiratory infection; I48.0 Paroxysmal atrial fibrillation; K21.9 Gastro-esophageal reflux disease without esophagitis; E78.5 Hyperlipidemia, unspecified; I25.10 Atherosclerotic heart disease of native coronary artery without angina pectoris; Z23 Encounter for immunization; Z66 Do not resuscitate; Z95.5 Presence of coronary angioplasty implant and graft; Z79.01 Long term (current) use of anticoagulants; Z86.16 Personal history of COVID-19; Z79.82 Long term (current) use of aspirin; Z79.899 Other long term (current) drug therapy; Z96.659 Presence of unspecified artificial knee joint; Z87.891 Personal history of nicotine dependence; Z20.822 Contact with and (suspected) exposure to COVID-19
CPT/HCPCS: 36415; 71045; 71046; 71250; 78582; 80048; 80053; 83605; 83735; 83880; 84100; 84484; 85025; 85379; 85610; 87040; 90471; 93005; 93970; 94010; 94760; 96374; 97116; 97161; 97530; 99285; A9540; A9558; J0456; J2185; J7050; J7614; Q2035; U0003